=== PATIENT | male | born 1950 | race Caucasian/White ===

== ENCOUNTER 2019-03-24 05:47 | Outpatient (RCR) | payer OTHER, MEDICARE, SELFPAY | END 2019-03-24 23:00 | disposition home or self-care (01) | LOC: ONCRAD 05:47 | PROVIDERS: Family Provider Family Medicine; Visit Provider Radiology Radiation Oncology | DX: Z51.0 Encounter for antineoplastic radiation therapy (principal); C79.51 Secondary malignant neoplasm of bone; C22.0 Liver cell carcinoma; M25.552 Pain in left hip | CPT/HCPCS: 77280; 77336; 77387 ×5; 77412 ×8; 96372; J0897 ==

== ENCOUNTER 2019-04-04 05:45 | Outpatient (RCR) | payer SELFPAY | END 2019-04-12 00:01 | LOC: ONCRAD 05:45 | PROVIDERS: Family Provider Family Medicine; Visit Provider Specialist | DX: Z51.0 Encounter for antineoplastic radiation therapy (principal); C79.51 Secondary malignant neoplasm of bone; C22.0 Liver cell carcinoma; I10 Essential (primary) hypertension; E78.5 Hyperlipidemia, unspecified; E11.42 Type 2 diabetes mellitus with diabetic polyneuropathy; I25.10 Atherosclerotic heart disease of native coronary artery without angina pectoris; G47.33 Obstructive sleep apnea (adult) (pediatric); K21.9 Gastro-esophageal reflux disease without esophagitis; M19.90 Unspecified osteoarthritis, unspecified site; M10.9 Gout, unspecified; E55.9 Vitamin D deficiency, unspecified; F43.10 Post-traumatic stress disorder, unspecified; I25.2 Old myocardial infarction; K22.2 Esophageal obstruction; G89.3 Neoplasm related pain (acute) (chronic); I24.1 Dressler's syndrome; Z79.891 Long term (current) use of opiate analgesic; Z79.899 Other long term (current) drug therapy; Z87.442 Personal history of urinary calculi | CPT/HCPCS: 71045; 77336; 77387 ×2; 77412 ×4; 99214 ==

== ENCOUNTER 2019-05-04 05:42 | Outpatient (RCR) | payer OTHER, MEDICARE, SELFPAY ==
[2019-04-14 15:23] LABS: Basophils # 0.1 10^3/uL (0.0-0.1); Basophils % 0.9 %; Eosinophils # 0.5 10^3/uL (0.0-0.8); Hematocrit 37.9 % (42.0-52.0); Lymphocytes # 0.4 10^3/uL (0.8-4.8); Lymphocytes % 6.8 %; Mean Corpuscular HGB Conc 31.7 g/dL (30.0-36.0); Mean Corpuscular Hemoglobin 29.3 pg (28.0-34.0); Mean Corpuscular Volume 92.4 fL (80-94); Mean Platelet Volume 9.3 fL (7.4-10.4); Monocytes # 0.6 10^3/uL (0.2-0.9); Monocytes % 9.9 %; Neutrophils # 4.3 10^3/uL (1.8-7.7); Neutrophils % 73.2 %; Nucleated Red Blood Cells % 0 %; Platelet Count 291 10^3/cmm (130-400); Red Cell Distribution Width 14.6 % (12.1-15.1); White Blood Count 5.9 10^3/uL (4.0-10.0)
[2019-04-14 22:58] LABS: Alanine Aminotransferase 48 U/L (0-41); Albumin Level 3.8 g/dL (3.5-5.2); Alkaline Phosphatase 122 IU/L (40-130); Anion Gap 18.3 (5-19); Aspartate Amino Transferase 34 U/L (0-40); Blood Urea Nitrogen 12 mg/dL (8-23); Calcium 9.3 mg/Dl (8.8-10.2); Carbon Dioxide 25 mmol/L (22-29); Chloride 99 mmol/L (98-107); Globulin 3.3 g/dL (1.3-4.6); Glomerular Filtration Rate 66.2 mL/min (90-130); Glucose 101 mg/dL (74-106); Potassium 4.3 mmol/L (3.5-5.1); Sodium 138 mmol/L (136-145); Total Bilirubin 0.3 mg/dL (0.15-1.2); Total Protein 7.1 g/dL (6.6-8.7)
--- NOTE | 2019-04-16 11:32 | ONC FU_ITS ---
Dr. Shea Patient Follow-Up Note Patient: Victoriano Resendiz Unit #: [id number]: 1950 Dicatated By: Tyler Shea M.D.Date of Visit:Apr 15, 2019 Onc Med Follow-up/Prog Note Chief Complaint: Hepatocellular carcinoma. History of Present Illness: This is a 68 year-old man with metastatic hepatocellular carcinoma. He has multiple medical illnesses including hypertension, hyperlipidemia, type II diabetes with peripheral neuropathy, coronary artery disease, obstructive sleep apnea, GERD/peptic ulcer disease, degenerative arthritis/degenerative disease of the spine, nephrolithiasis, gout, vitamin D deficiency, and posttraumatic stress disorder. In August 2017 he was admitted to the hospital with non-ST elevation myocardial infarction. At the time he underwent emergent coronary angioplasty for obstructive disease in the mid LAD and first diagonal branch, both of which were noted to contain thrombus. He did not require stent placement. 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 His CT angiogram at that time showed a moderate-sized pericardial effusion, but with no evidence for aortic aneurysm or dissection. Also noted on that study was fatty infiltration of the liver and a 3.2 cm mass in the right lobe of the liver, felt to be indeterminate. Further evaluation with CT abdomen/pelvis on 10/12/2017 showed a 3.7 x 3.8 cm mass involving the right lobe of the liver. It was felt to appear more consistent with a hemangioma then other etiologies. A 3 month interval follow-up was recommended. He had then presented in the fall with left arm pain. It improved with physical therapy. He had then developed worsening pain in his right shoulder and arm. X-rays of the right shoulder showed moderate degenerative changes. MRI showed a mass lesion at the distal aspect of the coracoid process with bony destruction and a soft tissue component which was noted to protrude anteriorly. The appearance was suspicious for malignancy. He had orthopedic surgery consultation with Dr. Hemanth Santos on 04/21/2018. Subsequent needle biopsy of the right shoulder soft tissue mass on 05/12/2018 showed metastatic carcinoma consistent with an hepatocellular primary. The tumor cells were noted to be strongly reactive for a HEP-PAR-1 and negative for CK7, CK20, PAX8, RCC, and thyroglobulin. His further staging with CT scans of the abdomen/pelvis on 05/12/2018 showed a large ill defined arterially enhancing mass within the right hepatic lobe measuring up to 8 cm. The primary diagnostic consideration was hepatocellular carcinoma. A solitary metastatic lesion was felt to be less likely. A 1.5 cm enhancing lesion within the inferior aspect of the spleen was felt to possibly represent splenic hematoma or hemangioma, but with metastatic lesion not excluded. The prostate was noted to be heterogeneously enlarged. CT of the chest on 05/13/2018 showed borderline enlarged right paratracheal, left paratracheal, and subcarinal lymph nodes, the largest in the subcarinal region measuring 15 mm. There were no suspicious pulmonary nodules and there was no pleural or pericardial effusion noted. A destructive expansile lytic lesion was noted to involve the right coracoid process with associated soft tissue mass. There were degenerative changes of the lower cervical spine. I had seen him initially on 06/15/2018. Given the extent of involvement in the right shoulder area, I did have him see Dr. Rapp for palliative radiation. I also reviewed options for systemic therapy, and per NCCN guidelines I had recommended an initial course of therapy with sorafenib. He began radiation to the right shoulder on 06/23/2018. He completed his course of treatment on 06/29/2018, total dose 4000 cGy. He had a very good clinical response. He began treatment with sorafenib 400 mg twice a day on 07/14/2018. He was then given additional radiation to the left scapula and to the pelvis. Treatment was completed to the left scapula on 08/18/2018 and to the pelvis on 09/01/2018, both sites to 2400 cGy. I had seen him for a followup visit on 09/01/2018. At that time he had developed headache on the right side. Initially he continued the sorafenib, but it was stopped as of 09/12/2018. An MRI of the head on 09/15/2018 showed a thin right parietal subacute subdural hematoma overlying the right parietal convexity. It extended over the right occipital and temporal lobes. It measured 5 mm in maximum dimension. There was minimal mass effect on the underlying brain parenchyma. There was no evidence of metastatic disease. During his further follow-up, he continued conservative management for the subdural hematoma, and his symptoms gradually improved. Repeat CT abdomen/pelvis on 09/27/2018 showed increased size variable decreased enhancement/attenuation of the right hepatic lobe mass. There was evidence of progressive lytic metastatic disease involving the sacrum. He was then approved for second line systemic therapy with nivolumab. He began cycle 1 on 10/12/2018. He was able to tolerate the nivolumab without any significant toxicity. He then continued treatment at 2-week intervals. As of 01/11/2019 he received his 6th cycle. His restaging CT scans on 01/14/2019 showed development of an expansile lesion of the right second rib felt to probably represent a metastatic lesion. There was no change in the treated lesion in the right lobe of the liver. There was also no change in the size of the probable right sacral metastasis. Further evaluation with PET/CT on 01/22/2018 showed a region of probable necrosis in the posterior right hepatic lobe, but with no evidence for active hepatic malignancy. There was evidence for multifocal osseous metastatic disease, including a right second rib lesion measuring 3.9 x 3.4 cm with SUV 4.0. There were additional FDG positive bone lesions in the right scapula, T3 vertebral body, left transverse process of T6, sacrum, proximal right femur, right 10th rib, and left scapula. With those findings, he was referred to Dr. Rapp, and he has been undergoing additional phase of radiation to the thoracic spine. On 03/26/2019 he was admitted to the hospital with complaints of severe pain in the throat/chest and difficulty swallowing. The symptoms were severe enough that he was having vomiting/regurgitation. Radiation esophagitis was suspected, but his Gastrografin upper GI study showed evidence of esophageal stenosis. He then had ENT consultation and he was confirmed on subsequent esophagoscopy to have a benign-appearing stricture, which was able to be dilated. There was no evidence of radiation or Kimberly esophagitis. His symptoms improved, and he was then able to continue radiation. He completed treatment to the thoracic spine on 04/04/2019, total dose 3250 cGy. He is seen for a follow-up visit. He has been feeling better generally since completing the radiation. He still has limited activity. ECOG score is 2. His appetite is a little better. He still has a little trouble with swallowing, but not nearly to the extent that he was prior to the dilatation procedure. He has not had fever. He occasionally has sweating. He says his breathing is okay. He has a little bit of cough, productive of creamy white sputum. He has occasional sharp pain to the left side of the sub-sternal area. It does not last long. He has just occasional nausea. Bowel function has been okay. He has some hesitancy with urination. He says his pain is always there, but it is being managed adequately with the oxycodone. He has having to take it on a pretty regular basis. He has occasional headache. He had one recent episode with some lightheadedness and sweating. He continues to have numbness in his left arm and hand, and he is losing function of his left hand. He has a little numbness now in the right hand as well. Medications: Atorvastatin Calcium 1 Tablet (of 20 mg) Oral daily, Cod Liver Oil 1 Tablet (of 1000 mg) Capsule Oral daily, Cyclobenzaprine HCl 1 Tablet (of 10 mg) Oral t.i.d. PRN, Fluticasone Propionate HFA 1 (220 mcg/act) Aerosol Inhalation b.i.d., Ketorolac Tromethamine 1 drop(s) (of 0.5 %) Solution Ophthalmic four times a day, Metoprolol Tartrate 1 Tablet (of 25 mg) Oral b.i.d., Multivitamin Adult 1 Tablet Oral daily, Nitroglycerin 1 (0.4 mg) Tablet, sublingual Sublingual PRN, Ondansetron HCl 1 Tablet (of 4 mg) Oral four times a day PRN, oxyCODONE HCl 1 Tablet (of 10 mg) Oral four times a day PRN, Pantoprazole Sodium 1 Tablet (of 40 mg) Tablet, enteric coated Oral daily PRN, prednisoLONE Acetate 1 drop(s) (of 1 %) Suspension Ophthalmic b.i.d., Vitamin D3 1 Tablet (of 1000 Units) Oral daily Allergies: No Known Allergies. Review of Systems: Constitutional - His energy varies by day. He is up and around at home. His appetite is picking up, but his weight is down. No fever or chills. He has hot flashes and sweating, both during the day and at night. ECOG score is 2, ENMT - He has sinus drainage. No mouth sores. No sore throat or difficulty swallowing, Hematologic/Lymphatic - No abnormal bruising or bleeding, Respiratory - No shortness of breath. He has a productive cough. No pleuritic pain or hemoptysis, Cardiovascular - He has occasional sharp pains in the center of his chest. No palpitations, Gastrointestinal - He has occasional nausea. No vomiting. No heartburn or acid reflux. No diarrhea or constipation. No blood in the stool or black stools, Genitourinary (M) - No dysuria or hematuria. No urinary frequency. No urgency or incontinence. He has some hesitancy, Musculoskeletal - No joint or bone pain, Integumentary - No skin complications, Neurologic - He has occasional headaches. He has frequent dizzy spells. He breaks out in a sweat and feels light-headed. He has numbness in his left arm and both hands, Psychiatric - He gets cranky and he has some depression. No insomnia. Vital Signs: Performed on Apr 15, 2019 08:50 Height - 69.00 in Weight - 148.6 lbs (LOW) BSA - 1.82 sq.m BMI - 21.94 Temperature - 97.6 F (LOW) Pulse - 92 /min Respiration - 16 /min BP - 135/66 mm(hg) O2 Sat - 98 % Pain - 5 Fatigue - 8 Physical Examination: Constitutional - He looks a little better generally, Eyes - Sclerae nonicteric. Conjunctivae clear, ENMT - No lesions noted in the oral cavity, Hematologic/Lymphatic - No cervical, clavicular, or axillary adenopathy, Respiratory - Lungs are clear with some decrease in air movement bilaterally, Cardiovascular - Heart rhythm is regular. There is no murmur, gallop, or rub noted, Abdomen - Soft. Liver is not enlarged. Spleen is not palpable. There is no abdominal mass or ascites noted and there is no inguinal adenopathy, Extremities - No edema. There is some redness in the area of the right first metatarsal/phalangeal joint, and it is warm to touch, Neurologic - No focal neurologic deficits noted. Lab/Imaging: Test performed on Apr 14, 2019 07:35 Glucose 101 mg/dL BUN 12 mg/dL Creatinine 1.1 mg/dL Cr Clearance (Est) 59.58 mL/min Sodium 138 mmol/L Potassium 4.3 mmol/L Chloride 99 mmol/L CO2 25 mmol/L Calcium 9.3 mg/dL Protein, Total 7.1 g/dL Albumin 3.8 g/dL Globulin 3.3 g/dL Bilirubin, Total 0.3 mg/dL Alkaline Phosphatase 122 IU/L AST (SGOT) 34 IU/L ALT (SGPT) 48 IU/L WBC 5.9 10^9/L RBC 4.10 10^12/L HGB 12.0 g/dL HCT 37.9 % MCV 92.4 fl MCH 29.3 pg MCHC 31.7 g/dL RDW 14.6 % Platelet Count 291 10^9/L MPV 9.3 fL Neutrophils (Gran) 4.3 10^9/L Lymphocytes 0.4 10^9/L Monocytes 0.6 10^9/L Eosinophils 0.5 10^9/L Basophils 0.1 10^9/L Manual Lymphocytes 6.8 % Manual Monocytes 9.9 % Manual Eosinophils 9.0 % Manual Basophils 0.9 % NRBCs 0.0 /100 WBC Test performed on Jan 11, 2019 11:25 TSH 2.13 uIU/mL Anion Gap 20.4 eGFR 95.6 mL/min Neutrophil % 74.1 % Lymphocyte % 14.8 % Monocyte % 5.8 % Eosinophil % 4.1 % Basophils % 1.2 % AFP 23.8 ng/mL Test performed on Dec 07, 2018 11:15 T4, Free 1.06 ng/dL Impression: 1. Patient with hepatocellular carcinoma. By clinical evaluation his disease is stage IVB (T1, NX, M1) with biopsy proven metastatic involvement in the right shoulder. 2. There is also a possible metastatic lesion in the spleen by CT scan. His other medical illnesses include: 3. Hypertension. 4. Hyperlipidemia. 5. Type II diabetes with peripheral neuropathy. 6. Coronary artery disease with history of non-ST elevation myocardial infarction in August 2017. 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 7. GERD/peptic ulcer disease. 8. Obstructive sleep apnea. 9. Degenerative arthritis/degenerative disease of the spine. 10. Gout. 11. Nephrolithiasis. 12. Vitamin D deficiency. 13. Posttraumatic stress disorder. Due to symptomatic involvement in the right shoulder, he initially was treated with palliative radiation to that area. He completed treatment on 06/29/2018, total dose 4000 cGy. He had a very good clinical response. He then began systemic therapy with sorafenib 400 mg twice a day on 07/14/2018. He has now completed additional palliative radiation to the left scapula and to the pelvis, both sites to 2400 cGy. Initially he appeared to be tolerating the sorafenib with acceptable toxicity. However, as of his follow-up visit on 09/01/2018 he had developed headache on the right side. This continued to worsen, and the sorafenib was then stopped as of 09/12/2018. MRA of the head on 09/15/2018 showed evidence of a subacute right subdural hematoma. He was taken off Plavix. It was otherwise been managed conservatively, and it subsequently improved. During follow-up he did show some decline in performance status. His repeat CT scans on 09/27/2018 showed variable appearance to the liver, but there likely was some disease progression in both the liver and bone. On 10/12/2018 he began second line therapy with nivolumab 240 mg by IV infusion every 2 weeks. As of 01/11/2019 he had completed 6 cycles of treatment. His restaging CT and subsequent PET/CT appeared to show evidence of progression of the bony metastatic disease, with the most significant site being in the anterior right second rib. He had initially continued his immunotherapy, but he then had worsening back pain and development of neurologic symptoms in the left arm, and he was confirmed by MRI to have further disease progression in the thoracic spine. The immunotherapy was again put on hold, and he has had underwent palliative radiation to the thoracic spine. He completed treatment on 04/04/2019, total dose 3250 cGy. During that time he required hospital admission for severe dysphasia, but that was determined to be due to a benign esophageal stricture, and his symptoms are improved following an esophageal dilatation procedure. At this point he continues to have limited activity tolerance. His pain is being managed adequately with immediate release oxycodone, but he has having to take it on a fairly regular basis. He has persistent neurologic symptoms in the left arm. He still has some difficulty swallowing, but not nearly to the extent that he was prior to the dilatation procedure. Plan: As he has had significant disease progression during treatment with nivolumab, the immunotherapy will be discontinued. His options for further treatment are very limited. There would be the possibility of a trial of second line TKI therapy, but the likelihood of benefit would be low, and I would be very concerned about the risk of toxicities, including the risk of new or recurrent subdural hematoma. In this situation, it may be best to just continue with symptomatic/supportive care, in which case hospice referral would be appropriate. He is scheduled to see Dr. Tian for a follow-up visit next week, and I will see if I can get a Gastrografin UGI repeated prior to that visit. I also want to schedule him for MRI of the cervical and thoracic spine to screen for other areas of potential metastatic involvement. I also will check a sputum culture. He will be given a refill for prednisone, as I suspect he has acute gout again. Signed By: Tyler Shea M.D. <<Signature on File>>
--- NOTE | 2019-04-21 12:23 | MR_ITS ---
WS: [id number] MRI THORACIC SPINE WITH CONTRAST TECHNIQUE: Sagittal T1, T2 and STIR imaging. Axial T2 imaging. Post gadolinium imaging was obtained. CLINICAL INFORMATION: HEPATOCELLULAR CA W/BONE METS;WEAKNESS/NUMBNESS LT ARM COMPARISON: None. FINDINGS: Multiple metastatic lesions throughout the thoracic spine involving the vertebral bodies and posterio r elements. Largest lesions at T4, T5, T6, T7, T8, T11 and T12. Prominent involvement of posterior el ements at left T6 extending through the left T6 pedicle. Large left paravertebral soft tissue mass in volving the left paravertebral musculature and posterior elements at left T5 and T6. This abuts the l dhara, pedicle and transverse process contiguous with the left T6 pedicle with epidural involvement. Paravertebral mass measures 5.4 x 2.7 x 2.6 cm. Additional left paravertebral mass at T1 and T2 descr ibed on the cervical spine MRI. Multiple enhancing metastatic lesions are visualized in the posterior elements and proximal ribs. Thi s is most prominent at right T4, right T8, and left T9. Prominent involvement of the spinous process at T11. Epidural disease with circumferential moderate central canal stenosis at T1 and T2 as describ ed on the cervical spine MRI. Less prominent left eccentric epidural involvement at left T6. This ext ends into the left neural foramen. Cord signal remains normal. Normal caliber thoracic aorta. Partial ly visualized large metastatic lesions along the right anterior second rib. 1. Extensive bony metastatic disease throughout the thoracic spine involving the posterior elements as described above. 2. Large left paravertebral lesion at the T5 and T6 level contiguous with the left T6 pedicle. Soft tissue mass measures 5.4 x 2.7 x 2.6 cm. 3. Small amount of left eccentric epidural disease at T6 without significant central canal stenosis. 4. Epidural disease at T1 and T2 as described on the cervical spine MRI with moderate central canal stenosis. Cord signal remains normal. 5. Partially visualized large right second rib lesion anteriorly. 6. Large left posterior paravertebral lesion at T1 and T2 as described on the cervical spine MRI. MR/MR thoracic spine wo/w [id number] IMPRESSION:
--- NOTE | 2019-04-21 12:23 | MR_ITS ---
WS: [id number] MRI CERVICAL SPINE NONCONTRAST TECHNIQUE: Sagittal T1, T2 and STIR imaging. Axial T2, gradient, and fiesta imaging. CLINICAL INFORMATION: HEPATOCELLULAR CA W/BONE METS,WEAKNESS/NUMBNESS LT ARM COMPARISON: February 10, 2019 FINDINGS: Straightening of the normal cervical lordosis. Images are moderately degraded by motion artifact. Aga in seen are prominent metastatic lesions involving the T1 and T2 vertebral bodies extending into the right posterior elements at T2. This is similar in appearance to the prior examination. Diffuse enhan cing epidural extension of disease at the T1-2 level extending inferiorly with moderate central canal stenosis. Cord signal remains normal. Epidural extension of disease was present previously but appea rs progressed today. At the left T1-2 level there is a large enhancing T2 hyperintense paravertebral mass consistent with metastatic disease measuring approximately 3.8 x 2.3 x 2.4 CM. This is partially visualized previousl y but appears increased in size. This extends to abut the posterior left lamina at T1 and T2 in the p aravertebral musculature. C2-C3: Normal. C3-C4: Mild disc osteophyte complex with endplate ridging. Mild central canal stenosis. Small central protrusion. Moderate left facet arthropathy. Mild bilateral bony foraminal narrowing. C4-C5: Disc osteophyte complex with mild central canal stenosis. Moderate bilateral bony foraminal na rrowing. Moderate facet arthropathy. C5-C6: Disc osteophyte complex with endplate ridging. Moderate central canal stenosis. Moderate to se derrell left and moderate right bony foraminal narrowing. C6-C7: Mild disc bulging with osteophytic ridging. Mild right greater than left bony foraminal narrow ing. Spinal canal is patent. C7-T1: Mild disc bulging. Small amount of epidural disease with mild central canal stenosis. Mild hi ateral foraminal narrowing with epidural extension of disease Visualized brain stem structures: Normal. Prevertebral soft tissues: Normal. 1. Again seen are bony metastatic lesions at T1 and T2 vertebral bodies extending into the posterior elements on the right at T2. These are similar in appearance to the prior examination. 2. Progressed epidural extension of disease at T1 and T2 with moderate circumferential central canal stenosis. Cord signal remains normal. This was present previously but appears slightly progressed to day. 3. Large left paravertebral soft tissue mass also progressed in size measuring 3.8 x 2.3 x 2.4 CM ab utting the left T1 and T2 posterior elements at the lamina. 4. Small disc osteophyte complexes result in mild to moderate central canal stenosis C3-C4, C4-C5, a nd C5-C6 unchanged. MR/MR cervical spine wo/w [id number] IMPRESSION:
--- NOTE | 2019-04-25 10:53 | FL_ITS ---
WS: [id number] UPPER GI TECHNICAL: Gastrografin upper GI FLUOROSCOPY TIME: 3.8 minutes CLINICAL INFORMATION: HEPATOCELLULAR CA/ESOPHAGEAL STRICTURE/DIFFICULTY SWALLOWING COMPARISON: FINDINGS: Swallowing: Normal. Esophagus: Previously described stricture in the upper cervical esophagus has improved today. No evid ence of high-grade stricture or obstructing mass. Moderate esophageal dysmotility with delayed emptyi ng. Gastroesophageal reflux: Small amount present Stomach: Normal appearing stomach. Gastric retention with delayed emptying. IMPRESSION: 1. Previously described stricture in the upper cervical esophagus has improved today. No evidence of high-grade stricture or obstructing mass. 2. Overall moderate esophageal dysmotility with delayed emptying. 3. No significant hiatal hernia. 4. Small amount of reflux visualized on the supine imaging. 5. Normal-appearing stomach, although with gastric retention and delayed emptying despite delayed im aging. Consider gastroparesis.
[2019-04-25] MEDS: diatrizoate meglumine 120 mL Sol PO ×2 (11:38→11:41)
--- NOTE | 2019-05-05 | CT_ITS ---
Radation Therapy Planning CT images; total exam DLP: 798.17 mGy-cm MTDD
== END 2019-05-13 23:59 | disposition home or self-care (01) ==
LOC: ONCMED 05:42
PROVIDERS: Family Provider Family Medicine; PCP Family Medicine; Visit Provider Internal Medicine Medical Oncology
DX: C79.51 Secondary malignant neoplasm of bone (principal); C22.0 Liver cell carcinoma; G89.3 Neoplasm related pain (acute) (chronic); E78.5 Hyperlipidemia, unspecified; I10 Essential (primary) hypertension; E11.42 Type 2 diabetes mellitus with diabetic polyneuropathy; I25.10 Atherosclerotic heart disease of native coronary artery without angina pectoris; G47.33 Obstructive sleep apnea (adult) (pediatric); K21.9 Gastro-esophageal reflux disease without esophagitis; M19.90 Unspecified osteoarthritis, unspecified site; M10.9 Gout, unspecified; E55.9 Vitamin D deficiency, unspecified; F43.10 Post-traumatic stress disorder, unspecified; I25.2 Old myocardial infarction; N40.0 Benign prostatic hyperplasia without lower urinary tract symptoms; F32.9 Major depressive disorder, single episode, unspecified; R47.02 Dysphasia; Z79.891 Long term (current) use of opiate analgesic; Z79.899 Other long term (current) drug therapy; Z87.11 Personal history of peptic ulcer disease; Z98.61 Coronary angioplasty status; Z87.442 Personal history of urinary calculi; Z92.25 Personal history of immunosuppression therapy; Z48.89 Encounter for other specified surgical aftercare
CPT/HCPCS: 72156; 72157; 74240; 77290; 77334; 77470; 80053; 85025; 87070; 99214; 99215; A9579; Q9967

== ENCOUNTER 2019-05-15 14:01 | Inpatient (IN) | payer OTHER, MEDICARE, SELFPAY ==
[2019-05-15 14:01] VITALS: PULSE 92; RESP 17; O2SAT 100
--- NOTE | 2019-05-15 14:05 | ED_ITS ---
Entered by Dagmar Coy, acting as scribe for HPI - General Adult General: Chief complaint: General Medical Stated complaint: N/V/D; LIVER CA Time Seen by Provider: 05/15/19 14:03 Source: patient Mode of arrival: ambulatory Limitations: no limitations History of Present Illness: HPI narrative: difficulty swallowing, recent stretch in his esophagus. pt is a cancer pt. MD complaint: n/v/d Onset (ago): hour(s) (today) Radiation: abdomen Severity: moderate Pain Consistency: constant Relieving factors: none Exacerbating factors: movement Associated symptoms: Reports nausea, vomiting and other (diarrhea ); Deny chest pain, dyspnea, headache(s) or rash Treatments prior to arrival: none Review of Systems Const: Denies: fever, chills, body aches or change in appetite Eyes: Denies: photophobia ENMT: Denies: dental pain Card: Denies: chest pain Resp: Denies: shortness of breath GI: Reports: nausea and vomiting : Denies: painful urination Musc: Denies: neck pain or back pain Skin/Breast: Denies: rash Neuro: Denies: headache Psych: Denies: depression Markell/Lymph: Denies: easy bruising All/Imm: Denies: acute wheezing PFSH ED PFSH: Statuses (acute, chronic, etc) shown below reflect problem list status a s previously entered and may not be historically accurate Social History Smoking and tobacco status: former smoker Alcohol intake: former Physical Exam Const: COMMON NORMALS: no apparent distress, oriented x3 and healthy appearing HENMT: COMMON NORMALS: normocephalic and head/scalp atraumatic HEAD & SCALP: normocephalic and atraumatic Eye: COMMON NORMALS: PERRL and EOMs intact bilaterally PUPIL: Yes PERRL Neck/C-Spine: COMMON NORMALS: full ROM and supple Chest: COMMONS NORMALS: inspection of chest normal and palpation of chest normal Resp: COMMON NORMALS: normal respiratory effort, no retractions and clear to auscultation bilaterally AUSCULTATION: clear to auscultation bilaterally Cardio: COMMON NORMALS: regular rate, regular rhythm and no murmurs RATE: regular rate RHYTHM: regular rhythm GI: COMMON NORMALS: normal to inspection, nondistended, normoactive bowel sounds, soft to palpation, non-tender and no masses PALPATION: Yes soft Extremity: COMMON NORMALS: normal to inspection and full ROM Neuro: COMMON NORMALS: oriented x3, moves all extremities and no focal motor deficits Psych: COMMON NORMALS: mental status grossly normal, thought process normal and cooperative THOUGHT PROCESS: normal thought process Skin: COMMON NORMALS: no rashes or lesions noted and no wounds GENERAL SKIN EXAM: no rashes or lesions noted Course Vital Signs: Vital signs: Vital Signs Pulse Rate 92 05/15/19 14:01 Respiratory Rate 18 05/15/19 14:34 Pulse Oximetry 99 05/15/19 14:34 MDM - General Adult MDM Narrative: Medical decision making narrative: Patient presents here with dehydration and acute kidney injury. Patient abdominal exam here is benign and his white count is normal. I spoke to hospitalist and patient given IV fluids and will admit for further hydration. Patient's potassium level here is normal. Lab Data: Labs: Lab Results 05/15/19 05/15/19 Range/Units 14:43 14:43 WBC 5.9 (4.0-10.0) 10^3/ uL RBC 3.65 L (4.1-5.3) 10^6/u L Hgb 10.6 L (11.7-16.6) g/dL Hct 33.3 L (42.0-52.0) % MCV 91.2 (80-94) fL MCH 29.0 (28.0-34.0) pg MCHC 31.8 (30.0-36.0) g/dL RDW 15.1 (12.1-15.1) % Plt Count 344 (130-400) 10^3/c mm MPV 8.7 (7.4-10.4) fL Neut % (Auto) 86.1 % Lymph % (Auto) 4.4 % [place] % (Auto) 6.1 % Eos % (Auto) 1.9 % Baso % (Auto) 1.2 % Neut # (Auto) 5.1 (1.8-7.7) 10^3/u L Lymph # (Auto) 0.3 L (0.8-4.8) 10^3/u L [place] # (Auto) 0.4 (0.2-0.9) 10^3/u L Eos # (Auto) 0.1 (0.0-0.8) 10^3/u L Baso # (Auto) 0.1 (0.0-0.1) 10^3/u L Nucleated RBC % (a uto) 0 % Nucleated RBCs # 0.0 /100WBC Sodium 140 (136-145) mmol/L Potassium 4.5 (3.5-5.1) mmol/L Chloride 102 (98-107) mmol/L Carbon Dioxide 19 L (22-29) mmol/L Anion Gap 23.5 H (5-19) BUN 44 H (8-23) mg/dL Creatinine 5.3 H (0.7-1.2) mg/dL Glucose 131 H (74-106) mg/dL Calcium 6.9 L (8.5-10.5) mg/dL Total Bilirubin 0.5 (0.15-1.2) mg/dL AST 22 (0-40) U/L ALT 23 (0-41) U/L Alkaline Phosphata se 253 H (40-130) IU/L Total Protein 7.1 (6.6-8.7) g/dL Albumin 3.4 L (3.5-5.2) g/dL Globulin 3.7 (1.3-4.6) g/dL Lipase 137 H (13-60) U/L Discharge Plan Discharge Patient Disposition: Admitted As Inpatient Clinical Impression: Acute dehydration Acute kidney failure Qualifiers: Acute renal failure type: unspecified Qualified Code(s): N17.9 - Acute kidney failure, unspecified Condition: Stable Referrals: Rich Doe [Primary Care Provider] - Coding Level of Care Code ED Hostess Host for g Fwd Exam Problem Focused The documentation recorded by the Zbigniew matos Bridget Annette, accurately reflects the service I personally performed and the decisions made by , Kathy Hernández MD May 15, 2019 14:01
[2019-05-15] MEDS: sodium chloride 0.9% 1,000 ML 999 ML IV ×2 (14:31→15:46)
[2019-05-15] MEDS: ondansetron 2 mg/ML SDV 2 mL 4 MG IVP (14:32)
[2019-05-15 14:34] VITALS: RESP 18; O2SAT 99
[2019-05-15] MEDS: morphine 4 mg/mL SDV 1 mL IVP (14:34)
[2019-05-15 14:52] LABS: Basophils # 0.1 10^3/uL (0.0-0.1); Basophils % 1.2 %; Eosinophils # 0.1 10^3/uL (0.0-0.8); Eosinophils % 1.9 %; Hematocrit 33.3 % (42.0-52.0); Hemoglobin 10.6 g/dL (11.7-16.6); Lymphocytes # 0.3 10^3/uL (0.8-4.8); Lymphocytes % 4.4 %; Mean Corpuscular HGB Conc 31.8 g/dL (30.0-36.0); Mean Corpuscular Volume 91.2 fL (80-94); Mean Platelet Volume 8.7 fL (7.4-10.4); Monocytes # 0.4 10^3/uL (0.2-0.9); Monocytes % 6.1 %; Neutrophils # 5.1 10^3/uL (1.8-7.7); Neutrophils % 86.1 %; Nucleated Red Blood Cells % 0 %; Platelet Count 344 10^3/cmm (130-400); Red Blood Count 3.65 10^6/uL (4.1-5.3); Red Cell Distribution Width 15.1 % (12.1-15.1); White Blood Count 5.9 10^3/uL (4.0-10.0)
[2019-05-15 15:11] LABS: Alanine Aminotransferase 23 U/L (0-41); Albumin Level 3.4 g/dL (3.5-5.2); Alkaline Phosphatase 253 IU/L (40-130); Anion Gap 23.5 (5-19); Aspartate Amino Transferase 22 U/L (0-40); Blood Urea Nitrogen 44 mg/dL (8-23); Calcium 6.9 mg/dL (8.5-10.5); Carbon Dioxide 19 mmol/L (22-29); Chloride 102 mmol/L (98-107); Globulin 3.7 g/dL (1.3-4.6); Glucose 131 mg/dL (74-106); Lipase 137 U/L (13-60); Potassium 4.5 mmol/L (3.5-5.1); Sodium 140 mmol/L (136-145); Total Bilirubin 0.5 mg/dL (0.15-1.2); Total Protein 7.1 g/dL (6.6-8.7)
[2019-05-15] MEDS: metoclopramide 5 mg/mL SDV 2 mL IVP (15:46)
[2019-05-15] MEDS: diphenhydrAMINE 50 mg/mL SDV 1mL 25 MG IVP (15:47)
--- NOTE | 2019-05-15 17:23 | PM.HP ---
Providers/Chief Complaint Admitting Physician: Garfield Fletcher MD Primary Care Provider: Rich Doe Chief Complaint: N/V/D; LIVER CA History of Present Illness Victoriano Resendiz is a 69 year old male with a past medical history of stage IV metastatic hepatocellular carcinoma, status post radiation therapy, status post chemotherapy, history of CAD status post angioplasty to LAD and first diagonal branch, PEARL on CPAP, hypertension, hyperlipidemia, type 2 diabetes mellitus, peripheral neuropathy, GERD, peptic ulcer disease, recent history of radiation-induced esophageal stricture eosinophilic esophagitis who presents to the emergency room due to complaints of dysphasia, nausea, poor oral intake, weakness, fatigue, lightheadedness. Patient states that he continues to have dysphagia, he recently was diagnosed with eosinophilic esophagitis, had a radiation-induced esophageal stricture status post dilation by Dr. Tian, has followed up with Dr. Tian as outpatient, had a repeat barium swallow a few weeks ago it showed resolving esophageal stricture, but states that he continues to have dysphagia, dysphagia to solids liquids, nausea, has trouble keeping down solids and liquids, states that at times he will vomit up brown to yellow globs, he has felt weak fatigued and tired, has felt unsteady on his feet, no falls, no injuries, states that he has some dysuria, with more pronounced left flank pain, but has chronic back pain. Patient recently.saw Dr. Shea, was put on a fentanyl patch for pain and lorazepam for nausea. Patient also reports that he has had roughly a 20 pound weight loss in the last few months. States that he is always constipated, secondary to opiate medications. Review of Systems Const: Denies: fever, chills, fatigue or malaise Eyes: Denies: change in vision or blurry vision Card: Denies: chest pain or palpitations Resp: Denies: shortness of breath, productive cough, non-productive cough or wheezing GI: Reports: nausea, vomiting, difficulty swallowing and feeling full early; Denies: abdominal pain, vomiting blood, diarrhea, constipation, blood in stool or black tarry stool : Denies: flank pain, difficulty urinating, painful urination or urinary frequency Musc: Denies: neck pain or back pain Skin/Breast: Denies: rash Neuro: Denies: headache, dizziness or vertigo Psych: Denies: anxiety or depression Endo: Denies: excessive urination or excessive thirst Medications/Allergies Home Medications Medication Instructions Recorded Confirmed Last Taken Type Xgeva See Rx Instructions .ROUTE .COMPLEX 05/15/19 05/15/19 Unknown History fentanyl 1 patch TRANSDERMAL Q72H 05/15/19 05/15/19 Unknown History multivitamin [Multiple Vitamins] 1 tab PO DAILY 05/15/19 05/15/19 05/14/19 History Allergies Allergy/AdvReac Type Severity Reaction Status Date / Time No Known Allergies Allergy Verified 04/21/19 15:09 PFSH Acute PFSH: Statuses (acute, chronic, etc) shown below reflect problem list status as previously entered and may not be historically accurate Medical History (Updated 05/15/19 @ 17:46 by Garfield Fletcher MD) ASHD (arteriosclerotic heart disease) (Acute) No ASA or Plavix due to stomach ulcers. Pt had subdural hematoma Bruxism (Acute) Monica syndrome (Acute) H. 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 (Acute) Hyperlipidemia (Acute) Taken off the meds by Dr Shea Hypertension (Acute) taken off the BP meds by Dr Shea Low back pain (Acute) Neck pain (Acute) Obstructive sleep apnea (Acute) Pericardial effusion (Acute) Spondylisthesis (Acute) Ulnar neuropathy (Acute) Surgical History History of carpal tunnel surgery (Acute) Social History (Updated 05/15/19 @ 17:29 by Garfield Fletcher MD) Smoking and tobacco status: former smoker Alcohol intake: former Substance/Drug Use: never Vitals/I&O/Wt Last Vital Signs Pulse 92 05/15/19 14:01 Resp 18 05/15/19 14:34 Pulse Ox 99 05/15/19 14:34 Physical Exam Const: COMMON NORMALS: no apparent distress and oriented x3 GENERAL APPEARANCE: cooperative and comfortable HENMT: COMMON NORMALS: normocephalic HEAD & SCALP: normocephalic Eye: COMMON NORMALS: PERRL, EOMs intact bilaterally and no papilledema GENERAL EYE: normal appearance of both eyes PUPIL: Yes PERRL DIRECT OPHTHALMOSCOPY: Yes no papilledema Neck/C-Spine: COMMON NORMALS: full ROM, no lymphadenopathy, no JVD and thyroid normal THYROID: thyroid normal Lymph: LYMPHATIC: no lymphadenopathy noted Resp: COMMON NORMALS: normal respiratory effort, no retractions, no use of accessory muscles and clear to auscultation bilaterally AUSCULTATION: clear to auscultation bilaterally Cardio: COMMON NORMALS: no JVD, regular rate, regular rhythm, S1 normal heart sound, S2 normal heart sound, no gallops, no clicks and no murmurs RATE: regular rate RHYTHM: regular rhythm HEART SOUNDS: S1 normal and S2 normal GI: COMMON NORMALS: normal to inspection, nondistended, normoactive bowel sounds, soft to palpation, non-tender and no hepatosplenomegaly PALPATION: Yes soft and Yes no hepatosplenomegaly : BLADDER/KIDNEY EXAM: Yes CVA tenderness on the left Extremity: COMMON NORMALS: normal to inspection, full ROM and no pedal edema Neuro: COMMON NORMALS: oriented x3, CN's II-XII intact bilaterally, moves all extremities and no focal motor deficits Psych: COMMON NORMALS: mental status grossly normal, thought process normal and cooperative THOUGHT PROCESS: normal thought process Data : 05/15/19 14:43 05/15/19 14:43 A&P Assessment and plan (1) Acute kidney failure: -Likely secondary to severe dehydration and acute pyelonephritis and possible reaction to xgeva? 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: -Status post chemoradiation -He is receiving Xgeva Status: Acute Code(s): C79.51 - Secondary malignant neoplasm of bone; C22.0 - Liver cell carcinoma (4) Obstructive sleep apnea: Status: Acute Code(s): G47.33 - Obstructive sleep apnea (adult) (pediatric) (5) ASHD (arteriosclerotic heart disease): Status: Acute Code(s): I25.10 - Atherosclerotic heart disease of inupiat coronary artery without angina pectoris (6) Hypertension: Status: Acute Qualifiers: Hypertension type: essential hypertension Qualified Code(s): I10 - Essential (primary) hypertension Code(s): I10 - Essential (primary) hypertension (7) Dysphasia: -Has a history of eosinophilic esophagitis with history of radiation-induced esophageal stricture -Most recent barium enema showed resolving esophageal stricture -Patient continues to have dysphasia, trouble keeping down solids and liquids, nausea and vomiting -Patient has features of esophageal dysmotility, possible recurrent esophageal stricture, and has components of gastroparesis Plan: -We will perform a barium swallow tomorrow -We will perform a gastric emptying study tomorrow -Based on studies we will consult Dr. Tian -Possibly Reglan can help the patient symptoms? Will start after gastric emptying study -Continue IV fluids Status: Acute Code(s): R47.02 - Dysphasia (8) Hyperlipidemia: Status: Acute Qualifiers: Hyperlipidemia type: mixed hyperlipidemia Qualified Code(s): E78.2 - Mixed hyperlipidemia Code(s): E78.5 - Hyperlipidemia, unspecified (9) Chronic pain: On fentanyl 50 every 72, due to be changed to 07/01/2019 in the evening On oxycodone 15 mg 4 times daily as needed for breakthrough pain, patient states that he hardly uses this On lorazepam 1 mg q. 6 as needed for nausea Status: Acute Code(s): G89.29 - Other chronic pain (10) Pyelonephritis of left kidney: -Patient has a left CVA tenderness, with dysuria -Follow urine culture -Patient is on Rocephin Status: Acute Code(s): N12 - Tubulo-interstitial nephritis, not specified as acute or chronic (11) Type 2 diabetes mellitus: Diet controlled Status: Acute Code(s): E11.9 - Type 2 diabetes mellitus without complications Attestations Medical Necessity Statement*: Patient requires hospitalization, inpatient for acute renal failure, dysphasia, dehydration, left pyelonephritis Coding Level of Care Code Acute 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
--- NOTE | 2019-05-15 17:47 | CTR_ITS ---
PROCEDURE INFORMATION: Exam: CT Abdomen And Pelvis Without Contrast Exam date and time: 05/15/2019 6:12 PM Age: 69 years old Clinical indication: Abdominal pain; Periumbilical; Additional info: Evaluate fro nephrolithiasis TECHNIQUE: Imaging protocol: Computed tomography of the abdomen and pelvis without contrast. Total DLP: 761.85 mGy-cm Radiation optimization: All CT scans at this facility use at least one of these dose optimization techniques: automated exposure control; mA and/or kV adjustment per patient size (includes targeted exams where dose is matched to clinical indication); or iterative reconstruction. COMPARISON: CT Chest/Abdomen/Pelvis w IV* 01/14/2019 11:19 AM FINDINGS: Liver: Large inhomogenous mass in the right liver lobe has increased slightly in size measuring 13.2 x 9.1 x 9.4 cm. Gallbladder and bile ducts: Normal. No calcified stones. No ductal dilation. Pancreas: Normal. No ductal dilation. Spleen: Calcified granulomas in the spleen. Adrenals: A 1.4 cm nodule has developed in the left adrenal gland. The right adrenal is normal. Kidneys and ureters: Stable prominent bilateral renal pelves without suzi hydronephrosis. No calculus. Stomach and bowel: Diverticulosis of the descending colon. The small bowel and stomach are normal. Appendix: The appendix is normal. Intraperitoneal space: Unremarkable. No free air. No significant fluid collection. Vasculature: Unremarkable. No abdominal aortic aneurysm. Lymph nodes: Unremarkable. No enlarged lymph nodes. Bladder: Unremarkable as visualized. Reproductive: Mildly enlarged prostate. Bones/joints: Mild scoliosis. Chronic bilateral L5 pars fractures with grade 2 subluxation. Degenerative spine. Slightly larger 4.4 cm destructive lesion in the superior left sacrum. Slightly larger 4.0 cm destructive lesion in the anterior right sacrum. Soft tissues: Unremarkable. CT/CT kidney stone 39747 IMPRESSION: 1. Slight size increase in the large treated hepatocellular carcinoma in the right liver lobe. 2. New 1.4 cm metastatic nodule in the left adrenal gland. 3. Slightly larger expansile metastatic lesions in the superior left and anterior right sacrum. Radiation Dose CTDIVOL = (mGy): DLP = 761.85 (mGy-cm)
[2019-05-15 18:21] VITALS: BP 139/75; PULSE 79; RESP 17; O2SAT 98
[2019-05-15] MEDS: sodium chloride 0.9% 1,000 ML 100 ML IV (19:37)
[2019-05-15] MEDS: cefTRIAXone 1,000 MG in sodium chloride 0.9% (plus) 50 ML 100 MG IV (19:39)
[2019-05-15] MEDS: cholecalciferol (vitamin D3) 1,000 unit Tablet 1000 UNIT PO (19:40)
[2019-05-15] MEDS: enoxaparin 40 mg/0.4 mL Syringe SUBCUT (19:40)
[2019-05-15 20:00] VITALS: BP 149/81; PULSE 89; RESP 18; TEMP 37; O2SAT 98
[2019-05-16] VITALS (7 sets, daily range): BP systolic 125–152; BP diastolic 58–79; PULSE 78–103; RESP 18–20; TEMP 36.7–37.1; O2SAT 91–99
[2019-05-16 00:29] LABS: Urine Creatinine 91 mg/dL (39-259); Urine Protein Random 10 mg/dL; Urine Random Sodium 125 mmol/L
[2019-05-16 01:36] LABS: Eosinophil Urine No Eosinophils Seen; Urine Eosinophil Count 0 (0-0)
[2019-05-16 04:32] LABS: Basophils # 0.1 10^3/uL (0.0-0.1); Basophils % 1.4 %; Eosinophils # 0.5 10^3/uL (0.0-0.8); Eosinophils % 8.2 %; Hematocrit 31.7 % (42.0-52.0); Hemoglobin 10.1 g/dL (11.7-16.6); Lymphocytes # 0.4 10^3/uL (0.8-4.8); Lymphocytes % 7.5 %; Mean Corpuscular HGB Conc 31.9 g/dL (30.0-36.0); Mean Corpuscular Hemoglobin 29.4 pg (28.0-34.0); Mean Corpuscular Volume 92.4 fL (80-94); Mean Platelet Volume 8.9 fL (7.4-10.4); Monocytes # 0.7 10^3/uL (0.2-0.9); Monocytes % 11.8 %; Neutrophils # 4.1 10^3/uL (1.8-7.7); Neutrophils % 70.8 %; Nucleated Red Blood Cells % 0 %; Platelet Count 301 10^3/cmm (130-400); Red Blood Count 3.43 10^6/uL (4.1-5.3); Red Cell Distribution Width 15.2 % (12.1-15.1); White Blood Count 5.8 10^3/uL (4.0-10.0)
[2019-05-16 04:48] LABS: Alanine Aminotransferase 19 U/L (0-41); Albumin Level 2.9 g/dL (3.5-5.2); Alkaline Phosphatase 212 IU/L (40-130); Anion Gap 17.3 (5-19); Aspartate Amino Transferase 19 U/L (0-40); Blood Urea Nitrogen 34 mg/dL (8-23); Calcium 6.2 mg/dL (8.5-10.5); Carbon Dioxide 20 mmol/L (22-29); Chloride 106 mmol/L (98-107); Globulin 3.4 g/dL (1.3-4.6); Glucose 93 mg/dL (74-106); Magnesium 1.7 mg/dL (1.7-2.3); Phosphorus 4.3 mg/dL (2.5-4.5); Potassium 4.3 mmol/L (3.5-5.1); Sodium 139 mmol/L (136-145); Total Bilirubin 0.4 mg/dL (0.15-1.2); Total Protein 6.3 g/dL (6.6-8.7)
[2019-05-16 04:55] LABS: Procalcitonin 0.18 ng/mL (0-0.5)
[2019-05-16] MEDS: ondansetron 2 mg/ML SDV 2 mL 8 MG IVP ×3 (05:52→21:41)
[2019-05-16] MEDS: sodium chloride 0.9% 1,000 ML 100 ML IV ×2 (05:54→14:13)
--- NOTE | 2019-05-16 07:00 | FL_ITS ---
WS: [id number] MODIFIED BARIUM SWALLOW TECHNIQUE: Modified barium swallow with speech therapy using multiple consistencies. FLUOROSCOPY TIME: .9 minutes. CLINICAL INFORMATION: Oral dysphagia COMPARISON: April 25, 2019 FINDINGS: Limited examination. Patient could not complete examination. No evidence of suzi aspiration. Delayed oropharyngeal phase. Patient could not perform barium tablet portion of the exam. FL/FL barium swallow modifd [id number] IMPRESSION: 1. Limited examination. No evidence of suzi aspiration. 2. See speech therapy note for further detail.
--- NOTE | 2019-05-16 08:36 | PM.PN ---
Subjective Subjective: Interval history: Chart reviewed, AM labs noted, MBS pending. Mild improvement in Cr noted. Had 200 mL urine output overnight. Patient seen and examined, significant other at bedside. Had an extensive discussion with both of them. Patient unable to complete modified barium swallow earlier today, reviewed speech therapy note and discussed findings with ST. for now patient would like to try peripheral nutrition. We did discuss possibility of feeding tube placement which he would like to think about further. Continues to have significant nausea and dry heaves. Medications: Reviewed: Yes Medication Review Details: Current Medications Generic Name Dose Route Start Last Admin Trade Name Freq PRN Reason Stop Dose Admin Enoxaparin Sodium 40 mg 05/15/19 19:00 05/15/19 19:40 Lovenox SUBCUT 40 mg Q24H BONITA Administration Sodium Chloride 1,000 mls @ 100 m ls/hr 05/15/19 18:56 05/16/19 05:54 Sodium Chloride 0.9% IV 100 mls/hr .Q10H BONITA Administration Ceftriaxone Sodium 1,000 mg/ 50 mls @ 100 mls/ hr 05/15/19 18:56 05/15/19 19:39 Sodium Chloride IV 100 mls/hr Q24H BONITA Administration Protocol Multivitamins Ther apeutic 1 tab 05/16/19 09:00 05/16/19 08:33 Multivitamin Tab PO Not Given DAILY BONITA Ondansetron HCl 8 mg 05/15/19 18:56 05/16/19 05:52 Zofran IVP 8 mg Q8H PRN Administration vomiting, or N/V if npo Vitamin D 1,000 unit 05/15/19 19:30 05/16/19 08:33 Vitamin D3 PO Not Given DAILY BONITA Vitals/I&O/Wt Last Vital Signs Temp 98.1 F 05/16/19 07:49 Pulse 89 05/16/19 07:49 Resp 18 05/16/19 07:49 BP 129/71 05/16/19 07:49 Pulse Ox 97 05/16/19 07:49 05/15/19 05/16/19 05/16/19 22:59 06:59 14:59 Intake Total 170 / 170 830 / 1000 Output Total 200 / 200 Balance 170 / 170 630 / 800 Weight last 48 hrs Weight 70.624 kg Physical Exam Const: COMMON NORMALS: no apparent distress and oriented x3 GENERAL APPEARANCE: cooperative and comfortable ORIENTATION/CONSCIOUSNESS: Yes awake HENMT: COMMON NORMALS: normocephalic, head/scalp atraumatic and hearing grossly normal bilaterally HEAD & SCALP: normocephalic and atraumatic MOUTH: moist mucous membranes abnormal Details: cracked TEETH & GINGIVA: Yes poor dentition Eye: COMMON NORMALS: PERRL, EOMs intact bilaterally and conjunctivae normal CONJUNCTIVA: Yes conjunctivae normal PUPIL: Yes PERRL Neck/C-Spine: COMMON NORMALS: full ROM GENERAL: Yes normal visual inspection and Yes trachea midline Resp: COMMON NORMALS: normal respiratory effort, no retractions, no use of accessory muscles and clear to auscultation bilaterally EFFORT & INSPECTION: Yes able to speak in complete sentences, Yes symmetric chest movement and No tachypneic AUSCULTATION: clear to auscultation bilaterally Cardio: COMMON NORMALS: regular rate, regular rhythm, S1 normal heart sound, S2 normal heart sound and no murmurs RATE: regular rate RHYTHM: regular rhythm HEART SOUNDS: S1 normal and S2 normal GI: COMMON NORMALS: normal to inspection, nondistended, normoactive bowel sounds, soft to palpation and non-tender PALPATION: Yes soft Extremity: COMMON NORMALS: normal to inspection, full ROM and no clubbing, cyanosis or edema; negative for no pedal edema Neuro: COMMON NORMALS: oriented x3, moves all extremities, no focal motor deficits and no sensory deficits noted Psych: COMMON NORMALS: mental status grossly normal, thought process normal, cooperative, affect normal and speech normal SPEECH: Yes normal speech THOUGHT PROCESS: normal thought process Skin: COMMON NORMALS: no rashes or lesions noted, no jaundice, no petechiae and no mottling GENERAL SKIN EXAM: no rashes or lesions noted Data : 05/16/19 04:17 05/16/19 04:17 A&P Assessment and plan (1) 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 Shea and Dr. Rapp -pain control, antiemetics as needed -fall precautions -per Onc documentation, patient had declined hospice Status: Acute Code(s): C79.51 - Secondary malignant neoplasm of bone; C22.0 - Liver cell carcinoma (2) Acute dehydration: -secondary to poor oral intake -on IVF hydration, encourage oral hydration Status: Acute Code(s): E86.0 - Dehydration (3) Acute kidney failure: -has significantly elevated Cr that has mildly improved today -previously normal Cr -continue to monitor renal function -renal impairment is likely secondary to dehydration -on IVF hydration -avoid nephrotoxins, renally dose meds -noted CT A/P Status: Acute Qualifiers: Acute renal failure type: unspecified Qualified Code(s): N17.9 - Acute kidney failure, unspecified Code(s): N17.9 - Acute kidney failure, unspecified (4) Dysphagia: -has known dysphagia, has had esophageal dilation done by ENT Dr. Tian with improved ability to swallow -diagnosed with eosinophilic esophagitis -modified barium swallow done though patient unable to complete -aspiration precautions -noted possibility of gastroparesis on gastrograffin study indicating delayed emptying and gastric retention; also showed moderate esophageal dysmotility -on PPI -Wants to try peripheral nutrition pending decision on feeding tube placement Status: Acute Qualifiers: Dysphagia type: unspecified Qualified Code(s): R13.10 - Dysphagia, unspecified Code(s): R13.10 - Dysphagia, unspecified Additional A&P Information -Chronic pain, on chronic opiates -hx of CAD s/p angioplasty to LAD and OM1; f/u with Dr. Connolly. Echo (2018): EF=50%, stress testing in 01/2018 showing myocardial scarring in LAD area with small area of antony-infarction ischemia. Recently resumed plavix. Off ASA -Hyperlipidemia; not on statin, diet controlled -HTN -PEARL on CPAP -DM type II complicated by peripheral neuropathy -GERD -DJD of spine -hx of subacute hematoma (R) -Gout -noted ALP, lipase elevation likely from hepatocellular carcinoma with none mets -currently NPO for MBS -GI ppx with PPI -DVT ppx with Lovenox -Dispo: home -Code status: FULL code Attestations Medical Necessity Statement*: Patient requires hospitalization for continued IVF hydration, monitoring of renal function, management of dysphagia. Time Spent in Patient Care: Greater than 35 minutes (>than 50% of time spent in counselling and/or direct pt care on unit). 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
--- NOTE | 2019-05-16 10:25 | PC.PHAR ---
Lovenox dosing changed from 40mg Q24h changed to 30mg Q24h based on pt renal function and crcl (13). Will continue to monitor and make changes when appropriate.
--- NOTE | 2019-05-16 13:38 | PC.CHAP ---
Pastoral Care Encounter/Spiritual Assessment Type of Contact [] Declined validation manager visit [] Patient/Family/Request visit [] Outpatient visit [] Follow-up visit [] Physician referral [] Code/Alert [x] Routine visit [] Staff referral [] Actively dying [] Patient sleeping [x] Family support [] [] Out of room [] Palliative care [] [] Receiving care in room [] Pre-surgical visit [] Trauma [] Long length of stay [] ICU visit [] Other: Relational/Emotional Strength [] Patient feels connected with others/family/visitors/staff [] Distress [] Loneliness/isolation [] Abandonment Spirituality of Patient [x] Person of Va [] Attends Latter-Day of their Va [x] Believes in Prayer [] Reads Bible or Restorationism materials [] There are Spiritual issues to be addressed Branch Retail Executive Interventions [x] Prayer [x] Active listening [x] Non-anxious presence [x] Spiritual/emotional support [] Crisis/trauma care [] Spiritual counseling [] Bereavement support [] Provided bereavement packet [] Provided Bible/devotional materials [] Provided toy/stuffed animal, coloring book to patient or family member [] Provided Communion [] Anointing/[place] [] Salvation [x] Completed spiritual assessment [] Other: Reassurance of the promises of salvation Impact on Illness or Injury [] Angry [] Fearful [x] Anxious [] Often cries [] Exhaustion [] Unable to work [] Unable to attend sabianist [] Unable to walk/stand [] Unable to read [] Unable to drive [] Unable to eat/drink [] Unable to sleep [] Unable to be with family [] Patient intubated [] Other: Summary Patient stated he was in the end stages of liver cancer and there was nothing more that could be done. Patient asked for prayer that he would go to [facility] when he . Discussed patient's beliefs with him and reassured him of the promises of his Mandaeism va. Prayed with the patient and his family. Visited by Branch Retail Executive Garcia Delcid Time spent with patient 20 minutes
[2019-05-16] MEDS: cefTRIAXone 1,000 MG in sodium chloride 0.9% (plus) 50 ML 100 MG IV (18:05)
[2019-05-16] MEDS: enoxaparin 30 mg/0.3 mL Syringe SUBCUT (18:06)
[2019-05-16] MEDS: fentaNYL 50 mcg Patch 1 PATCH TRANSDERMA (21:18)
[2019-05-17] VITALS (7 sets, daily range): BP systolic 127–167; BP diastolic 70–92; PULSE 81–93; RESP 12–20; TEMP 36.6–37; O2SAT 94–97
[2019-05-17] MEDS: LORazepam 2 mg/mL INJ 1 mL 1 MG IVP (00:36)
[2019-05-17] MEDS: sodium chloride 0.9% 1,000 ML 100 ML IV ×3 (00:56→20:27)
[2019-05-17 06:04] LABS: Basophils # 0.1 10^3/uL (0.0-0.1); Basophils % 1.1 %; Eosinophils # 0.1 10^3/uL (0.0-0.8); Hematocrit 31.1 % (42.0-52.0); Hemoglobin 9.9 g/dL (11.7-16.6); Lymphocytes # 0.4 10^3/uL (0.8-4.8); Lymphocytes % 7.2 %; Mean Corpuscular HGB Conc 31.8 g/dL (30.0-36.0); Mean Corpuscular Hemoglobin 30.5 pg (28.0-34.0); Mean Corpuscular Volume 95.7 fL (80-94); Monocytes # 0.5 10^3/uL (0.2-0.9); Neutrophils # 4.4 10^3/uL (1.8-7.7); Neutrophils % 80.3 %; Nucleated Red Blood Cells % 0 %; Platelet Count 305 10^3/cmm (130-400); Red Blood Count 3.25 10^6/uL (4.1-5.3); Red Cell Distribution Width 15.2 % (12.1-15.1); White Blood Count 5.5 10^3/uL (4.0-10.0)
[2019-05-17 06:25] LABS: Alanine Aminotransferase 18 U/L (0-41); Albumin Level 2.9 g/dL (3.5-5.2); Alkaline Phosphatase 201 IU/L (40-130); Anion Gap 19.3 (5-19); Aspartate Amino Transferase 19 U/L (0-40); Blood Urea Nitrogen 38 mg/dL (8-23); Carbon Dioxide 15 mmol/L (22-29); Chloride 110 mmol/L (98-107); Globulin 3.1 g/dL (1.3-4.6); Glucose 96 mg/dL (74-106); Magnesium 1.7 mg/dL (1.7-2.3); Phosphorus 4.1 mg/dL (2.5-4.5); Potassium 4.3 mmol/L (3.5-5.1); Sodium 140 mmol/L (136-145); Total Bilirubin 0.3 mg/dL (0.15-1.2)
[2019-05-17 06:28] LABS: Calcium 5.8 mg/dL (8.5-10.5)
[2019-05-17] MEDS: ondansetron 2 mg/ML SDV 2 mL 8 MG IVP ×2 (07:09→14:53)
[2019-05-17 07:18] LABS: Procalcitonin 0.14 ng/mL (0-0.5)
[2019-05-17] MEDS: metoclopramide oral liquid 5 mg/5 mL (ml) PO ×4 (07:58→20:26)
--- NOTE | 2019-05-17 09:52 | P.PN_ITS ---
Subjective Subjective: Interval history: AM labs noted, received 2 gm dose of calcium gluconate. Had 625 mL urine output overnight. Patient seen and examined, reports feeling a little better today, more energetic. Describes having had nausea and dry heaves last night. Would like to receive his antiemetics throughout the day rather than at one time to see if this will control his nausea better. Discussed nutritional options and he seems to be leaning more towards continuation of peripheral nutrition rather than a feeding tube. Medications: Reviewed: Yes Medication Review Details: Current Medications Generic Name Dose Route Start Last Admin Trade Name Freq PRN Reason Stop Dose Admin Enoxaparin Sodium 30 mg 05/16/19 19:00 05/16/19 18:06 Lovenox SUBCUT 30 mg Q24H BONITA Administration Fentanyl 1 patch 05/16/19 20:00 05/16/19 21:18 Duragesic 50 Mcg Patch TRANSDERMA 1 patch Q72H BONITA Administration Sodium Chloride 1,000 mls @ 100 m ls/hr 05/15/19 18:56 05/17/19 00:56 Sodium Chloride 0.9% IV 100 mls/hr .Q10H BONITA Administration Ceftriaxone Sodium 1,000 mg/ 50 mls @ 100 mls/ hr 05/15/19 18:56 05/16/19 19:04 Sodium Chloride IV Infused Q24H BONITA Infusion Protocol Multivitamins 10 m l/ Amino 1,010 mls @ 0 mls /hr 05/16/19 20:30 05/17/19 04:42 Acids/Electrolyt es IV 10 mls/hr .Q0M BONITA Infusion Protocol Per Protocol Lorazepam 1 mg 05/17/19 00:13 05/17/19 00:36 Ativan IVP 1 mg Q6H PRN Administration ANXIETY Metoclopramide HCl 5 mg 05/16/19 21:00 05/17/19 07:58 Reglan PO 5 ml AC&BEDTIME BONITA Administration Multivitamins Ther apeutic 1 tab 05/16/19 09:00 05/17/19 07:05 Multivitamin Tab PO Not Given DAILY BONITA Ondansetron HCl 8 mg 05/15/19 18:56 05/17/19 07:09 Zofran IVP 8 mg Q8H PRN Administration vomiting, or N/V if npo Vitamin D 1,000 unit 05/15/19 19:30 05/17/19 07:05 Vitamin D3 PO Not Given DAILY BONITA Vitals/I&O/Wt Last Vital Signs Temp 98.6 F 05/17/19 07:30 Pulse 81 05/17/19 07:30 Resp 16 05/17/19 07:30 BP 157/79 05/17/19 07:30 Pulse Ox 97 05/17/19 07:30 05/16/19 05/17/19 05/17/19 22:59 06:59 14:59 Intake Total 840 / 1671.667 489 / 2160.667 Output Total 350 / 350 425 / 775 Balance 490 / 1321.667 64 / 1385.667 Weight last 48 hrs Weight 70.624 kg Physical Exam Const: COMMON NORMALS: no apparent distress and oriented x3 GENERAL APPEARA NCE: cooperative and comfortable ORIENTATION/CONSCIOUSNESS: Yes awake HENMT: COMMON NORMALS: normocephalic, head/scalp atraumatic and hearing grossly normal bilaterally HEAD & SCALP: normocephalic and atraumatic MOUTH: moist mucous membranes abnormal Details: cracked TEETH & GINGIVA: Yes poor dentition Eye: COMMON NORMALS: PERRL, EOMs intact bilaterally and conjunctivae normal CONJUNCTIVA: Yes conjunctivae normal PUPIL: Yes PERRL Neck/C-Spine: COMMON NORMALS: full ROM GENERAL: Yes normal visual inspection and Yes trachea midline Resp: COMMON NORMALS: normal respiratory effort, no retractions, no use of accessory muscles and clear to auscultation bilaterally EFFORT & INSPECTION: Yes able to speak in complete sentences, Yes symmetric chest movement and No tachypneic AUSCULTATION: clear to auscultation bilaterally Cardio: COMMON NORMALS: regular rate, regular rhythm, S1 normal heart sound, S2 normal heart sound and no murmurs RATE: regular rate RHYTHM: regular rhythm HEART SOUNDS: S1 normal and S2 normal GI: COMMON NORMALS: normal to inspection, nondistended, normoactive bowel sounds, soft to palpation and non-tender PALPATION: Yes soft Extremity: COMMON NORMALS: normal to inspection, full ROM and no clubbing, cyanosis or edema; negative for no pedal edema Neuro: COMMON NORMALS: oriented x3, moves all extremities, no focal motor deficits and no sensory deficits noted Psych: COMMON NORMALS: mental status grossly normal, thought process normal, cooperative, affect normal and speech normal SPEECH: Yes normal speech THOUGHT PROCESS: normal thought process Skin: COMMON NORMALS: no rashes or lesions noted, no jaundice, no petechiae and no mottling GENERAL SKIN EXAM: no rashes or lesions noted Data : 05/17/19 05:25 05/17/19 05:25 Micro: Microbiology 05/15/19 21:53 Urine Culture - Preliminary Urine,Voided A&P Assessment and plan (1) 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 Shea and Dr. Rapp -pain control, antiemetics as needed -fall precautions -per Onc documentation, patient had declined hospice Status: Acute Code(s): C79.51 - Secondary malignant neoplasm of bone; C22.0 - Liver cell carcinoma (2) Acute dehydration: -secondary to poor oral intake -on IVF hydration, encourage oral hydration Status: Acute Code(s): E86.0 - Dehydration (3) Acute kidney failure: -has significantly elevated Cr that has mildly improved today -previously normal Cr -continue to monitor renal function -renal impairment is likely secondary to dehydration -on IVF hydration -avoid nephrotoxins, renally dose meds -noted CT A/P Status: Acute Qualifiers: Acute renal failure type: unspecified Qualified Code(s): N17.9 - Acute kidney failure, unspecified Code(s): N17.9 - Acute kidney failure, unspecified (4) Dysphagia: -has known dysphagia, has had esophageal dilation done by ENT Dr. Tian wit h improved ability to swallow. Case discussed with Dr. Tian today, offered endoscopic evaluation which I will discuss further with the patient -diagnosed with eosinophilic esophagitis -modified barium swallow done though patient unable to complete -aspiration precautions -noted possibility of gastroparesis on gastrograffin study indicating delayed emptying and gastric retention; also showed moderate esophageal dysmotility -on PPI -Wants to try peripheral nutrition pending decision on feeding tube placement Status: Acute Qualifiers: Dysphagia type: unspecified Qualified Code(s): R13.10 - Dysphagia, unspecified Code(s): R13.10 - Dysphagia, unspecified Additional A&P Information -Chronic pain, on chronic opiates -hx of CAD s/p angioplasty to LAD and OM1; f/u with Dr. Connolly. Echo (2018): EF=50%, stress testing in 01/2018 showing myocardial scarring in LAD area with small area of antony-infarction ischemia. Recently resumed plavix. 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 Will d/c abx -Hypocalcemia; replace as needed; corrected Ca-6.7. Will add calcium to peripheral nutrition -on PPN -GI ppx with PPI -DVT ppx with Lovenox -Dispo: home -Code status: FULL code Attestations Medical Necessity Statement*: Patient requires hospitalization for continued peripheral nutrition, management of acute kidney injury and dehydration. Time Spent in Patient Care: Greater than 35 minutes (>than 50% of time spent in counselling and/or direct pt care on unit) . 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
[2019-05-17 12:06] LABS: Glucose Point of Care 113 mg/dL (70-110)
--- NOTE | 2019-05-17 14:16 | PC.CHAP ---
Pastoral Care Encounter/Spiritual Assessment Type of Contact [] Declined director reactor projects visit [] Patient/Family/Request visit [] Outpatient visit [] Follow-up visit [] Physician referral [] Code/Alert [x] Routine visit [] Staff referral [] Actively dying [] Patient sleeping [] Family support [] [] Out of room [] Palliative care [] [] Receiving care in room [] Pre-surgical visit [] Trauma [] Long length of stay [] ICU visit [] Other: Relational/Emotional Strength [x] Patient feels connected with others/family/visitors/staff [] Distress [] Loneliness/isolation [] Abandonment Spirituality of Patient [x] Person of Va [] Attends Amish of their Va [x] Believes in Prayer [] Reads Bible or Synagogue materials [] There are Spiritual issues to be addressed Drilling And Production Superintendent Interventions [x] Prayer [x] Active listening [x] Non-anxious presence [x] Spiritual/emotional support [] Crisis/trauma care [] Spiritual counseling [] Bereavement support [] Provided bereavement packet [] Provided Bible/devotional materials [] Provided toy/stuffed animal, coloring book to patient or family member [] Provided Communion [] Anointing/[place] [] Salvation [] Completed spiritual assessment [] Other: Impact on Illness or Injury [] Angry [] Fearful [] Anxious [] Often cries [] Exhaustion [] Unable to work [] Unable to attend latter day [] Unable to walk/stand [] Unable to read [] Unable to drive [] Unable to eat/drink [] Unable to sleep [] Unable to be with family [] Patient intubated [] Other: Summary The director reactor projects was asked to visit the patient by a friend of the his that was in ICU. The director reactor projects visited the patient and prayed for him. Time spent with patient 10 min.
--- NOTE | 2019-05-17 15:52 | PC.NUTR ---
NUTR TF RECOMMENDATIONS: Glucerna with goal rate of 50 ml/hr providing 1440 kcal (84%), 72 g PRO (101%), and 966 ml fluid (56%)(%NEEDS). Suggest starting TF at 20 ml and increase by 10 ml Q6H as tolerated till goal rate is met. Suggest 100 ml H2O flushes Q4H to approach fluid needs or per physician.
[2019-05-17] MEDS: enoxaparin 30 mg/0.3 mL Syringe SUBCUT (17:50)
[2019-05-17 19:46] LABS: Glucose Point of Care 119 mg/dL (70-110)
[2019-05-18] VITALS (7 sets, daily range): BP systolic 146–162; BP diastolic 74–83; PULSE 74–101; RESP 12–20; TEMP 36.4–37; O2SAT 96–98; BMI 23.9
[2019-05-18] MEDS: ondansetron 2 mg/ML SDV 2 mL 8 MG IVP ×3 (03:52→22:43)
[2019-05-18] MEDS: sodium chloride 0.9% 1,000 ML 100 ML IV ×2 (06:06→17:21)
[2019-05-18 07:12] LABS: Basophils # 0.1 10^3/uL (0.0-0.1); Eosinophils # 0.2 10^3/uL (0.0-0.8); Eosinophils % 2.3 %; Hematocrit 30.5 % (42.0-52.0); Hemoglobin 9.3 g/dL (11.7-16.6); Lymphocytes # 0.3 10^3/uL (0.8-4.8); Lymphocytes % 3.6 %; Mean Corpuscular HGB Conc 30.5 g/dL (30.0-36.0); Mean Platelet Volume 9.2 fL (7.4-10.4); Monocytes # 0.5 10^3/uL (0.2-0.9); Monocytes % 5.8 %; Neutrophils # 7.2 10^3/uL (1.8-7.7); Neutrophils % 86.8 %; Nucleated Red Blood Cells % 0 %; Platelet Count 282 10^3/cmm (130-400); Red Blood Count 3.21 10^6/uL (4.1-5.3); Red Cell Distribution Width 15.4 % (12.1-15.1); White Blood Count 8.3 10^3/uL (4.0-10.0)
[2019-05-18 07:24] LABS: Alanine Aminotransferase 18 U/L (0-41); Albumin Level 2.9 g/dL (3.5-5.2); Alkaline Phosphatase 206 IU/L (40-130); Anion Gap 17.1 (5-19); Aspartate Amino Transferase 22 U/L (0-40); Blood Urea Nitrogen 36 mg/dL (8-23); Calcium 6.1 mg/dL (8.5-10.5); Carbon Dioxide 15 mmol/L (22-29); Chloride 112 mmol/L (98-107); Globulin 3.1 g/dL (1.3-4.6); Magnesium 1.6 mg/dL (1.7-2.3); Phosphorus 3.6 mg/dL (2.5-4.5); Potassium 4.1 mmol/L (3.5-5.1); Sodium 140 mmol/L (136-145); Total Bilirubin 0.3 mg/dL (0.15-1.2)
--- NOTE | 2019-05-18 09:08 | PM.PN ---
Subjective Subjective: Interval history: AM labs noted, received 1 dose of Zofran overnight. Patient seen and examined several times throughout the day, when initially seen earlier this morning, reported feeling quite unwell, has had persistent nausea and vomiting throughout most of the morning. Requesting to have fentanyl patch removed in case this is contributing to his symptoms. Currently very apprehensive about taking anything orally so we will switch his medications to IV. We will trial him on steroids for antiemetic effect. Case discussed with Dr. Tian who is agreeable to endoscopy likely tomorrow AM. Patient seen again in the afternoon, still reporting some nausea but this has improved significantly since this morning. Noted improvement in creatinine today. Medications: Reviewed: Yes Medication Review Details: Current Medications Generic Name Dose Route Start Last Admin Trade Name Freq PRN Reason Stop Dose Admin Enoxaparin Sodium 30 mg 05/16/19 19:00 05/17/19 17:50 Lovenox SUBCUT 30 mg Q24H BONITA Administration Fentanyl 1 patch 05/16/19 20:00 05/16/19 21:18 Duragesic 50 Mcg Patch TRANSDERMA 1 patch Q72H BONITA Administration Sodium Chloride 1,000 mls @ 100 m ls/hr 05/15/19 18:56 05/18/19 06:06 Sodium Chloride 0.9% IV 100 mls/hr .Q10H BONITA Administration Famotidine 20 mg/ 1,007 mls @ 83 ml s/hr 05/18/19 08:30 05/18/19 08:49 Multivitamins 5 ml / Amino IV 83 mls/hr Acids/Electrolytes .Q12H8M BONITA Administration Lorazepam 1 mg 05/17/19 00:13 05/17/19 00:36 Ativan IVP 1 mg Q6H PRN Administration ANXIETY Metoclopramide HCl 5 mg 05/16/19 21:00 05/18/19 08:58 Reglan PO Not Given AC&BEDTIME BONITA Multivitamins Ther apeutic 1 tab 05/16/19 09:00 05/17/19 07:05 Multivitamin Tab PO Not Given DAILY BONITA Ondansetron HCl 8 mg 05/15/19 18:56 05/18/19 03:52 Zofran IVP 8 mg Q8H PRN Administration vomiting, or N/V if npo Vitamin D 1,000 unit 05/15/19 19:30 05/17/19 07:05 Vitamin D3 PO Not Given DAILY BONITA Vitals/I&O/Wt Last Vital Signs Temp 98.0 F 05/18/19 07:52 Pulse 77 05/18/19 07:52 Resp 18 05/18/19 07:52 BP 146/74 05/18/19 07:52 Pulse Ox 98 05/18/19 07:52 05/17/19 05/18/19 05/18/19 22:59 06:59 14:59 Intake Total 1120 / 2068.333 1085 / 3153.333 Output Total 600 / 600 Balance 520 / 6133.536 0171 / 2553.333 Weight last 48 hrs Weight 73.51 kg Physical Exam Const: COMMON NORMALS: no apparent distress and oriented x3 GENERAL APPEARANCE: cooperative and anxious ORIENTATION/CONSCIOUSNESS: Yes awake HENMT: COMMON NORMALS: normocephalic, head/scalp atraumatic and hearing grossly normal bilaterally HEAD & SCALP: normocephalic and atraumatic MOUTH: moist mucous membranes abnormal Details: cracked TEETH & GINGIVA: Yes poor dentition Eye: COMMON NORMALS: PERRL, EOMs intact bilaterally and conjunctivae normal CONJUNCTIVA: Yes conjunctivae normal PUPIL: Yes PERRL Neck/C-Spine: COMMON NORMALS: full ROM GENERAL: Yes normal visual inspection and Yes trachea midline Resp: COMMON NORMALS: normal respiratory effort, no retractions, no use of accessory muscles and clear to auscultation bilaterally EFFORT & INSPECTION: Yes able to speak in complete sentences, Yes symmetric chest movement and No tachypneic AUSCULTATION: clear to auscultation bilaterally Cardio: COMMON NORMALS: regular rate, regular rhythm, S1 normal heart sound, S2 normal heart sound and no murmurs RATE: regular rate RHYTHM: regular rhythm HEART SOUNDS: S1 normal and S2 normal GI: COMMON NORMALS: soft to palpation and non-tender INSPECTION: Yes normal to inspection and No abdominal distension AUSCULTATION: Yes hyperactive bowel sounds PALPATION: Yes soft Extremity: COMMON NORMALS: normal to inspection, full ROM and no clubbing, cyanosis or edema; negative for no pedal edema Neuro: COMMON NORMALS: oriented x3, moves all extremities, no focal motor deficits and no sensory deficits noted Psych: COMMON NORMALS: mental status grossly normal, thought process normal, cooperative, affect normal and speech normal SPEECH: Yes normal speech THOUGHT PROCESS: normal thought process Skin: COMMON NORMALS: no rashes or lesions noted, no jaundice, no petechiae and no mottling GENERAL SKIN EXAM: no rashes or lesions noted Data : 05/18/19 06:50 05/18/19 06:50 Micro: Microbiology 05/15/19 21:53 Urine Culture - Final Urine,Voided A&P Assessment and plan (1) Intractable nausea and vomiting: -Patient continues to have intractable nausea and vomiting which seems to have worsened today -Discontinue fentanyl patch in case this is contributing to his symptoms per his request -Very reluctant to take any medications by mouth so we will continue IV Zofran, add dexamethasone for antiemetic effect -Continue IV fluid hydration -Plan for EGD in a.m. -keep NPO Status: Acute Code(s): R11.2 - Nausea with vomiting, unspecified (2) Dysphagia: -has known dysphagia, has had esophageal dilation done by ENT Dr. Tian with improved ability to swallow. Case discussed with Dr. Tian, offered endoscopic evaluation which patient is agreeable to; scheduled for tomorrow -diagnosed with eosinophilic esophagitis -modified barium swallow done though patient unable to complete -aspiration precautions -noted possibility of gastroparesis on gastrograffin study indicating delayed emptying and gastric retention; also showed moderate esophageal dysmotility. 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 Shea and Dr. Rapp -pain control, antiemetics as needed -fall precautions -per Onc documentation, patient had declined hospice Status: Acute Code(s): C79.51 - Secondary malignant neoplasm of bone; C22.0 - Liver cell carcinoma (4) Acute dehydration: -secondary to poor oral intake and intractable nausea/vomiting -on IVF hydration, encourage oral hydration Status: Acute Code(s): E86.0 - Dehydration (5) Acute kidney failure: -has significantly elevated Cr that has mildly improved today -previously normal Cr -continue to monitor renal function -renal impairment is likely secondary to dehydration -on IVF hydration -avoid nephrotoxins, renally dose meds -noted CT A/P Status: Acute Qualifiers: Acute renal failure type: unspecified Qualified Code(s): N17.9 - Acute kidney failure, unspecified Code(s): N17.9 - Acute kidney failure, unspecified Additional A&P Information -Chronic pain, on chronic opiates -hx of CAD s/p angioplasty to LAD and OM1; f/u with Dr. Connolly. Echo (2018): EF=50%, stress testing in 01/2018 showing myocardial scarring in LAD area with small area of antony-infarction ischemia. Recently resumed plavix. 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 Off abx -Hypocalcemia; replace as needed; corrected Ca-7.0. Added calcium to peripheral nutrition -on PPN -GI ppx with PPI -DVT ppx with Lovenox -Dispo: home -Code status: FULL code Attestations Medical Necessity Statement*: Patient requires hospitalization for continued management of acute renal impairment, intractable nausea/vomiting, and continued peripheral nutrition. Time Spent in Patient Care: Greater than 35 minutes (>than 50% of time spent in counselling and/or direct pt care on unit). 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
[2019-05-18 09:13] LABS: Glucose 134 mg/dL (65-115)
--- NOTE | 2019-05-18 11:15 | PC.NURSE ---
Pt refusing all PO meds. Dr. Crenshaw notified.
--- NOTE | 2019-05-18 11:45 | PC.SOCIAL ---
Pg 2 of IMM Pg 2 of IMM was explained to and signed by patient, copy was provided, and form placed in chart. He verbalized understanding and had no questions.
[2019-05-18] MEDS: dexamethasone 4 mg/mL INJ IVP ×2 (14:43→19:59)
--- NOTE | 2019-05-18 14:45 | P.CONIM_ITS ---
Providers/Reason For Consult Consulting Physican/Specialty*: Ear nose and throat Reason for Consult*: Dysphagia Attending Physician: Louise Crenshaw MD Primary Care Provider: Rich Doe History of Present Illness History of Present Illness Victoriano Resendiz is a 69 year old male who is well-known to me. I have seen him previously for progressive dysphasia and performed a dilation. He has had progression of his cancer and progressive dysphasia resulting in inability to swallow. He also has intractable nausea and vomiting. Review of Systems Narrative: Const: Denies: fever, chills, fatigue or malaise Eyes: Denies: change in vision or blurry vision Card: Denies: chest pain or palpitations Resp: Denies: shortness of breath, productive cough, non-productive cough or wheezing GI: Reports: nausea, vomiting, difficulty swallowing and feeling full early; Denies: abdominal pain, vomiting blood, diarrhea, constipation, blood in stool or black tarry stool : Denies: flank pain, difficulty urinating, painful urination or urinary frequency Musc: Denies: neck pain or back pain Skin/Breast: Denies: rash Neuro: Denies: headache, dizziness or vertigo Psych: Denies: anxiety or depression Endo: Denies: excessive urination or excessive thirst Meds/Allergies Home Medications and Allergies Home Medications Medication Instructions Recorded Confirmed Type gabapentin 300 mg capsule 300 mg PO TID 04/18/19 05/15/19 History cholecalciferol (vitamin D3) 25 1,000 unit PO DAILY 04/21/19 05/15/19 History mcg (1,000 unit) capsule cod liver oil 1 cap PO BID 04/21/19 05/15/19 History cyclobenzaprine 10 mg tablet 10 mg PO TID PRN 04/21/19 05/15/19 History docusate sodium 100 mg capsule 100 mg PO PRN cap 04/21/19 05/15/19 History lorazepam 1 mg tablet 1 mg PO Q4H PRN 04/21/19 05/15/19 History lubiprostone 24 mcg capsule 24 mcg PO BID 04/21/19 05/15/19 History nitroglycerin 0.4 mg sublingual 0.4 mg SUBLINGUAL Q5M PRN 04/21/19 05/15/19 History tablet ondansetron HCl 4 mg tablet 4 mg PO Q4H 04/21/19 05/15/19 History oxycodone 15 mg tablet 30 mg PO QID PRN tab 04/21/19 05/15/19 History pantoprazole 40 mg tablet,delayed 40 mg PO DAILY PRN 04/21/19 05/15/19 History release prednisone 10 mg tablet 10 mg PO DIRECTED tab 04/21/19 05/15/19 History Xgeva See Rx Instructions .ROUTE .COMPLEX 05/15/19 05/15/19 History fentanyl 1 patch TRANSDERMAL Q72H 05/15/19 05/15/19 History multivitamin [Multiple Vitamins] 1 tab PO DAILY 05/15/19 05/15/19 History Allergies Allergy/AdvReac Type Severity Reaction Status Date / Time No Known Allergies Allergy Verified 04/21/19 15:09 Current Medications Current Medications Generic Name Dose Route Start Last Admin Trade Name Freq PRN Reason Stop Dose Admin Enoxaparin Sodium 30 mg 05/16/19 19:00 05/17/19 17:50 Lovenox SUBCUT 30 mg Q24H BONITA Administration Sodium Chloride 1,000 mls @ 100 mls/hr 05/15/19 18:56 05/18/19 06:06 Sodium Chloride 0.9% IV 100 mls/hr .Q10H BONITA Administration Famotidine 20 mg/ 1,007 mls @ 83 mls/hr 05/18/19 08:30 05/18/19 08:49 Multivitamins 5 ml/ Amino IV 83 mls/hr Acids/Electrolytes .Q12H8M BONITA Administration Lorazepam 1 mg 05/17/19 00:13 05/17/19 00:36 Ativan IVP 1 mg Q6H PRN Administration ANXIETY Metoclopramide HCl 5 mg 05/16/19 21:00 05/18/19 14:36 Reglan PO Not Given AC&BEDTIME BONITA Multivitamins Therapeutic 1 tab 05/16/19 09:00 05/18/19 11:15 Multivitamin Tab PO Not Given DAILY BONITA Ondansetron HCl 8 mg 05/15/19 18:56 05/18/19 12:44 Zofran IVP 8 mg Q8H PRN Administration vomiting, or N/V if npo Vitamin D 1,000 unit 05/15/19 19:30 05/18/19 11:14 Vitamin D3 PO Not Given DAILY BONITA PFSH Acute PFSH: Statuses (acute, chronic, etc) shown below reflect problem list status as previously entered and may not be historically accurate Medical History ASHD (arteriosclerotic heart disease) (Acute) No ASA or Plavix due to stomach ulcers. Pt had subdural hematoma Bruxism (Acute) Monica syndrome (Acute) H. 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 (Acute) Hyperlipidemia (Acute) Taken off the meds by Dr Shea Hypertension (Acute) taken off the BP meds by Dr Shea Low back pain (Acute) Neck pain (Acute) Obstructive sleep apnea (Acute) Pericardial effusion (Acute) Spondylisthesis (Acute) Ulnar neuropathy (Acute) Surgical History History of carpal tunnel surgery (Acute) Family History Other CAD (coronary artery disease) Diabetes Hypertension Stroke Social History Smoking and tobacco status: former smoker Alcohol intake: former Substance/Drug Use: never Vitals/I&O/Wt Last Vital Signs Temp 98.4 F 05/18/19 14:40 Pulse 78 05/18/19 14:40 Resp 20 H 05/18/19 14:40 BP 161/77 05/18/19 14:40 Pulse Ox 98 05/18/19 14:40 05/17/19 05/18/19 05/18/19 22:59 06:59 14:59 Intake Total 1120 / 2068.333 1085 / 3153.333 Output Total 600 / 600 Balance 520 / 2264.431 2382 / 2553.333 Weight last 48 hrs Weight 162 lb 1 oz Weight 162 lb 1 oz Physical Exam Narrative: EXAM NARRATIVE: Const: The patient is in no apparent distress, average body habitus, oriented x3, no limitations and healthy appearing GENERAL APPEARANCE: Cooperative, comfortable, well kempt, thin ORIENTATION/CONSCIOUSNESS: Awake, oriented to person, oriented to place and oriented to time HENMT: Normocephalic, head/scalp atraumatic, head and scalp normal to inspection, FACE & SINUS: Normal facial exam, sinuses nontender and face symmetric NOSE: external nose normal, nares normal, no nasal polyps, nasal mucous membranes and turbinates normal and septum deviated EXTERNAL EAR: External ears normal EXTERNAL AUDITORY CANAL: EAC's normal TYMPANIC MEMBRANE: TM's normal bilaterally HEARING: Normal to whisper AU ORAL CAVITY: Oral and palatal mucosa normal, lip normal, tongue normal, salivary glands and ducts normal and moist mucous membranes OROPHARYNX: Oropharynx normal, uvula midline Eye: PERRL, EOMs intact bilaterally, conjunctivae normal, no scleral icterus and normal visual storey by confrontation. Alignment normal, periorbital findings normal, eyelids normal, conjunctivae normal, sclerae normal, corneas normal. Neck/C-Spine: Full ROM, no lymphadenopathy in levels I-IV, supple, no meningeal signs, no JVD and thyroid normal GENERAL: THYROID: Thyroid normal Lymph: LYMPHATIC: No lymphedema noted Chest: Inspection of chest normal Resp: Normal respiratory effort, no retractions, no use of accessory muscles and clear to auscultation bilaterally AUSCULTATION: Clear to auscultation bilaterally Cardio: No JVD, RRR Neuro: Oriented x3 and CN's II-XII intact bilaterally except as above SENSORIUM/ORIENTATION: Oriented to person, place and time. Psych: Mental status grossly normal, thought process normal, cooperative, speech normal and denies suicidal ideation APPEARANCE: Grossly normal and Yes well kempt ATTITUDE: Calm and engaged SPEECH: Normal speech THOUGHT PROCESS: Normal thought process JUDGEMENT: Judgment good Skin: No rashes or lesions noted except as above, no wounds, skin turgor normal, no jaundice, no petechiae and no mottling. 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 Informed consent was obtained to proceed with esophagogastroduodenoscopy and possible dilation. The patient is aware the risk of perforation exist and the possibility of being unable to perform the esophagogastroduodenoscopy if a tight obstruction is present. He asked appropriate questions and I believe is well- informed and is willing to proceed with surgery. 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
[2019-05-18] MEDS: enoxaparin 30 mg/0.3 mL Syringe SUBCUT (18:43)
[2019-05-18] MEDS: morphine 4 mg/mL SDV 1 mL 2 MG IVP (22:42)
[2019-05-19] VITALS (15 sets, daily range): BP systolic 122–173; BP diastolic 67–98; PULSE 72–85; RESP 12–20; TEMP 36.5–36.9; O2SAT 96–100
[2019-05-19] MEDS: LORazepam 2 mg/mL INJ 1 mL 0.5 MG IVP (00:38)
[2019-05-19] MEDS: dexamethasone 4 mg/mL INJ IVP ×3 (01:46→20:30)
[2019-05-19] MEDS: sodium chloride 0.9% 1,000 ML 100 ML IV ×2 (03:24→22:32)
[2019-05-19] MEDS: morphine 4 mg/mL SDV 1 mL 2 MG IVP ×4 (03:42→20:06)
[2019-05-19 04:18] LABS: Basophils % 0.4 %; Hematocrit 28.6 % (42.0-52.0); Hemoglobin 9.2 g/dL (11.7-16.6); Lymphocytes # 0.3 10^3/uL (0.8-4.8); Lymphocytes % 4.7 %; Mean Corpuscular HGB Conc 32.2 g/dL (30.0-36.0); Mean Corpuscular Hemoglobin 29.3 pg (28.0-34.0); Mean Corpuscular Volume 91.1 fL (80-94); Mean Platelet Volume 9.8 fL (7.4-10.4); Monocytes # 0.2 10^3/uL (0.2-0.9); Monocytes % 2.7 %; Neutrophils % 91.7 %; Nucleated Red Blood Cells % 0 %; Platelet Count 284 10^3/cmm (130-400); Red Blood Count 3.14 10^6/uL (4.1-5.3); Red Cell Distribution Width 15.1 % (12.1-15.1); White Blood Count 5.5 10^3/uL (4.0-10.0)
[2019-05-19 04:43] LABS: Alanine Aminotransferase 20 U/L (0-41); Albumin Level 2.8 g/dL (3.5-5.2); Alkaline Phosphatase 202 IU/L (40-130); Anion Gap 16.4 (5-19); Aspartate Amino Transferase 26 U/L (0-40); Blood Urea Nitrogen 39 mg/dL (8-23); Carbon Dioxide 16 mmol/L (22-29); Chloride 107 mmol/L (98-107); Globulin 2.8 g/dL (1.3-4.6); Glucose 208 mg/dL (65-115); Potassium 4.4 mmol/L (3.5-5.1); Sodium 135 mmol/L (136-145); Total Bilirubin 0.3 mg/dL (0.15-1.2); Total Protein 5.6 g/dL (6.6-8.7)
[2019-05-19] MEDS: ondansetron 2 mg/ML SDV 2 mL 8 MG IVP (08:56)
--- NOTE | 2019-05-19 09:03 | PM.PN ---
Subjective Subjective: Interval history: The patient's symptoms are largely unchanged. He continues to have nausea and dysphasia. He is otherwise doing fairly well and his pain is under control. Medications: Reviewed: Yes Vitals/I&O/Wt Last Vital Signs Temp 98.1 F 05/19/19 08:00 Pulse 85 05/19/19 08:00 Resp 16 05/19/19 08:47 BP 151/78 05/19/19 08:00 Pulse Ox 99 05/19/19 08:00 05/18/19 05/19/19 05/19/19 22:59 06:59 14:59 Intake Total 2023.3 / 2023.3 1000 / 3024.3 Output Total 150 / 150 520 / 670 Balance 1874.3 / 1874.3 480 / 2354.3 -1 Weight last 48 hrs Weight 171 lb 9 oz Weight 162 lb 1 oz Weight 162 lb 1 oz Physical Exam Narrative: EXAM NARRATIVE: EXAM NARRATIVE: Const: The patient is in no apparent distress, average body habitus, oriented x3, no limitations and healthy appearing GENERAL APPEARANCE: Cooperative, comfortable, well kempt, thin ORIENTATION/CONSCIOUSNESS: Awake, oriented to person, oriented to place and oriented to time HENMT: Normocephalic, head/scalp atraumatic, head and scalp normal to inspection, FACE & SINUS: Normal facial exam, sinuses nontender and face symmetric NOSE: external nose normal, nares normal, no nasal polyps, nasal mucous membranes and turbinates normal and septum deviated EXTERNAL EAR: External ears normal EXTERNAL AUDITORY CANAL: EAC's normal TYMPANIC MEMBRANE: TM's normal bilaterally HEARING: Normal to whisper AU ORAL CAVITY: Oral and palatal mucosa normal, lip normal, tongue normal, salivary glands and ducts normal and moist mucous membranes OROPHARYNX: Oropharynx normal, uvula midline Eye: PERRL, EOMs intact bilaterally, conjunctivae normal, no scleral icterus and normal visual storey by confrontation. Alignment normal, periorbital findings normal, eyelids normal, conjunctivae normal, sclerae normal, corneas normal. Neck/C-Spine: Full ROM, no lymphadenopathy in levels I-IV, supple, no meningeal signs, no JVD and thyroid normal GENERAL: THYROID: Thyroid normal Lymph: LYMPHATIC: No lymphedema noted Chest: Inspection of chest normal Resp: Normal respiratory effort, no retractions, no use of accessory muscles and clear to auscultation bilaterally AUSCULTATION: Clear to auscultation bilaterally Cardio: No JVD, RRR Neuro: Oriented x3 and CN's II-XII intact bilaterally except as above SENSORIUM/ORIENTATION: Oriented to person, place and time. Psych: Mental status grossly normal, thought process normal, cooperative, speech normal and denies suicidal ideation APPEARANCE: Grossly normal and Yes well kempt ATTITUDE: Calm and engaged SPEECH: Normal speech THOUGHT PROCESS: Normal thought process JUDGEMENT: Judgment good Skin: No rashes or lesions noted except as above, no wounds, skin turgor normal, no jaundice, no petechiae and no mottling. TRAUMA: No lacerations or abrasions HAIR: Normal NAILS: Normal Data : 05/19/19 03:35 05/19/19 03:35 Micro: Microbiology 05/15/19 21:53 Urine Culture - Final Urine,Voided A&P Assessment and plan (1) Dysphagia: Status: Acute Qualifiers: Dysphagia type: unspecified Qualified Code(s): R13.10 - Dysphagia, unspecified Code(s): R13.10 - Dysphagia, unspecified (2) Intractable nausea and vomiting: Status: Acute Code(s): R11.2 - Nausea with vomiting, unspecified Additional A&P Information He has had no significant change in his symptoms and therefore we will continue with the planned surgical procedure. Attestations Medical Necessity Statement*: Cannot swallow Coding Level of Care Code Acute Small Kick Press Operator for g Fwd Diagnoses Dysphagia R13.10 Dysphagia type: unspecified Intractable nausea and vomiting R11.2
--- NOTE | 2019-05-19 09:08 | PM.HPUD ---
H&P update H&P Update: DATE OF SURGERY/PROCEDURE: 05/19/19 DATE H&P PERFORMED: 05/16/19 H&P UPDATE INFORMATION: No changes to prior documentation PREOP DIAGNOSIS: Dysphasia PLANNED PROCEDURE: Operation Date: 05/19/19 12:00 Proposed Procedures p EGD with possible dilation(Not Applicable) - Sridhar Tian MD Full H&P Medications/Allergies: Current Medications: Current Medications Generic Name Dose Route Start Last Admin Trade Name Freq PRN Reason Stop Dose Admin Dexamethasone 4 mg 05/18/19 14:00 05/19/19 08:47 Decadron IVP 4 mg Q6H BONITA Administration Enoxaparin Sodium 30 mg 05/16/19 19:00 05/18/19 18:43 Lovenox SUBCUT 30 mg Q24H BONITA Administration Sodium Chloride 1,000 mls @ 100 m ls/hr 05/15/19 18:56 05/19/19 03:24 Sodium Chloride 0.9% IV 100 mls/hr .Q10H BONITA Administration Famotidine 20 mg/ 1,007 mls @ 83 ml s/hr 05/18/19 08:30 05/18/19 20:55 Multivitamins 5 ml / Amino IV 83 mls/hr Acids/Electrolytes .Q12H8M BONITA Administration Lorazepam 0.5 mg 05/18/19 15:04 05/19/19 00:38 Ativan IVP 0.5 mg Q6H PRN Administration ANXIETY Metoclopramide HCl 5 mg 05/16/19 21:00 05/19/19 06:09 Reglan PO Not Given AC&BEDTIME BONITA Morphine Sulfate 2 mg 05/18/19 13:57 05/19/19 08:47 Morphine IVP 2 mg Q4H PRN Administration SEVERE PAIN Multivitamins Ther apeutic 1 tab 05/16/19 09:00 05/18/19 11:15 Multivitamin Tab PO Not Given DAILY BONITA Ondansetron HCl 8 mg 05/15/19 18:56 05/19/19 08:56 Zofran IVP 8 mg Q8H PRN Administration vomiting, or N/V if npo Vitamin D 1,000 unit 05/15/19 19:30 05/18/19 11:14 Vitamin D3 PO Not Given DAILY BONITA Perinent History: Medical/Surgical History: Medical History (Updated 05/18/19 @ 17:29 by Louise Crenshaw MD) ASHD (arteriosclerotic heart disease) (Acute) No ASA or Plavix due to stomach ulcers. Pt had subdural hematoma Bruxism (Acute) Monica syndrome (Acute) H. 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
--- NOTE | 2019-05-19 09:26 | PM.PN ---
Subjective Subjective: Interval history: Plan for endoscopic evaluation today. Received 2 doses of IV morphine and 1 dose of Ativan IV overnight. Patient seen and examined later in the day, resting in bed, seems to be in better spirits today, reports that nausea has improved some. Would like to try some liquids specifically tea. Does have some residual soreness in his throat so will order some Chloraseptic spray. Is requesting to have morphine and Zofran scheduled around the same time as he seems to tolerate this better. Medications: Reviewed: Yes Medication Review Details: Current Medications Generic Name Dose Route Start Last Admin Trade Name Freq PRN Reason Stop Dose Admin Dexamethasone 4 mg 05/18/19 14:00 05/19/19 08:47 Decadron IVP 4 mg Q6H BONITA Administration Enoxaparin Sodium 30 mg 05/16/19 19:00 05/18/19 18:43 Lovenox SUBCUT 30 mg Q24H BONITA Administration Sodium Chloride 1,000 mls @ 100 m ls/hr 05/15/19 18:56 05/19/19 03:24 Sodium Chloride 0.9% IV 100 mls/hr .Q10H BONITA Administration Famotidine 20 mg/ 1,007 mls @ 83 ml s/hr 05/18/19 08:30 05/19/19 09:19 Multivitamins 5 ml / Amino IV 83 mls/hr Acids/Electrolytes .Q12H8M BONITA Administration Lorazepam 0.5 mg 05/18/19 15:04 05/19/19 00:38 Ativan IVP 0.5 mg Q6H PRN Administration ANXIETY Metoclopramide HCl 5 mg 05/16/19 21:00 05/19/19 06:09 Reglan PO Not Given AC&BEDTIME BONITA Morphine Sulfate 2 mg 05/18/19 13:57 05/19/19 08:47 Morphine IVP 2 mg Q4H PRN Administration SEVERE PAIN Multivitamins Ther apeutic 1 tab 05/16/19 09:00 05/18/19 11:15 Multivitamin Tab PO Not Given DAILY BONITA Ondansetron HCl 8 mg 05/15/19 18:56 05/19/19 08:56 Zofran IVP 8 mg Q8H PRN Administration vomiting, or N/V if npo Vitamin D 1,000 unit 05/15/19 19:30 05/18/19 11:14 Vitamin D3 PO Not Given DAILY BONITA Vitals/I&O/Wt Last Vital Signs Temp 98.1 F 05/19/19 08:00 Pulse 85 05/19/19 08:00 Resp 16 05/19/19 08:47 BP 151/78 05/19/19 08:00 Pulse Ox 99 05/19/19 08:00 05/18/19 05/19/19 05/19/19 22:59 06:59 14:59 Intake Total 2023.3 / 2023.3 1000 / 3024.3 1007 / 1007 Output Total 150 / 150 520 / 670 Balance 1874.3 / 1874.3 480 / 2354.3 1006 / 1006 Weight last 48 hrs Weight 77.819 kg Weight 73.51 kg Weight 73.51 kg Physical Exam Const: COMMON NORMALS: no apparent distress and oriented x3 GENERAL APPEARANCE: cooperative and comfortable ORIENTATION/CONSCIOUSNESS: Yes awake HENMT: COMMON NORMALS: normocephalic, head/scalp atraumatic and hearing grossly normal bilaterally HEAD & SCALP: normocephalic and atraumatic MOUTH: moist mucous membranes abnormal Details: cracked TEETH & GINGIVA: Yes poor dentition Eye: COMMON NORMALS: PERRL, EOMs intact bilaterally and conjunctivae normal CONJUNCTIVA: Yes conjunctivae normal PUPIL: Yes PERRL Neck/C-Spine: COMMON NORMALS: full ROM GENERAL: Yes normal visual inspection and Yes trachea midline Resp: COMMON NORMALS: normal respiratory effort, no retractions, no use of accessory muscles and clear to auscultation bilaterally EFFORT & INSPECTION: Yes able to speak in complete sentences, Yes symmetric chest movement and No tachypneic AUSCULTATION: clear to auscultation bilaterally Cardio: COMMON NORMALS: regular rate, regular rhythm, S1 normal heart sound, S2 normal heart sound and no murmurs RATE: regular rate RHYTHM: regular rhythm HEART SOUNDS: S1 normal and S2 normal GI: COMMON NORMALS: soft to palpation and non-tender INSPECTION: Yes normal to inspection and No abdominal distension PALPATION: Yes soft Extremity: COMMON NORMALS: normal to inspection, full ROM and no clubbing, cyanosis or edema; negative for no pedal edema Neuro: COMMON NORMALS: oriented x3, moves all extremities, no focal motor deficits and no sensory deficits noted Psych: COMMON NORMALS: mental status grossly normal, thought process normal, cooperative, affect normal and speech normal SPEECH: Yes normal speech THOUGHT PROCESS: normal thought process Skin: COMMON NORMALS: no rashes or lesions noted, no jaundice, no petechiae and no mottling GENERAL SKIN EXAM: no rashes or lesions noted Data : 05/19/19 03:35 05/19/19 03:35 Micro: Microbiology 05/15/19 21:53 Urine Culture - Final Urine,Voided A&P Assessment and plan (1) Intractable nausea and vomiting: -Patient continues to have intractable nausea and vomiting which seems to have worsened today -Discontinued fentanyl patch in case this is contributing to his symptoms per his request -Very reluctant to take any medications by mouth so we will continue IV Zofran, dexamethasone for antiemetic effect -Continue IV fluid hydration -EGD today; reviewed results with Dr. Tian. Did have dilation done going into the pylorus. No overt abnormalities noted during procedure. -keep NPO; patient would like to try clear liquid diet this evening. Status: Acute Code(s): R11.2 - Nausea with vomiting, unspecified (2) Dysphagia: -has known dysphagia, has had esophageal dilation done by ENT Dr. Tian with improved ability to swallow. Case discussed with Dr. Tian, offered endoscopic evaluation which patient is agreeable to; scheduled for today -diagnosed with eosinophilic esophagitis -modified barium swallow done though patient unable to complete -aspiration precautions -noted possibility of gastroparesis on gastrograffin study indicating delayed emptying and gastric retention; also showed moderate esophageal dysmotility. 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 Shea and Dr. Rapp -pain control, antiemetics as needed -fall precautions -per Onc documentation, patient had declined hospice -per discussion with Dr. Shea, poor prognosis overall Status: Acute Code(s): C79.51 - Secondary malignant neoplasm of bone; C22.0 - Liver cell carcinoma (4) Acute dehydration: -secondary to poor oral intake and intractable nausea/vomiting -on IVF hydration, encourage oral hydration Status: Acute Code(s): E86.0 - Dehydration (5) Acute kidney failure: -has significantly elevated Cr; continues to improve -previously normal Cr -continue to monitor renal function -renal impairment is likely secondary to dehydration -on IVF hydration -avoid nephrotoxins, renally dose meds -noted CT A/P Status: Acute Qualifiers: Acute renal failure type: unspecified Qualified Code(s): N17.9 - Acute kidney failure, unspecified Code(s): N17.9 - Acute kidney failure, unspecified Additional A&P Information -Chronic pain, on chronic opiates -hx of CAD s/p angioplasty to LAD and OM1; f/u with Dr. Connolly. Echo (2018): EF=50%, stress testing in 01/2018 showing myocardial scarring in LAD area with small area of antony-infarction ischemia. Recently resumed plavix. 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 Off abx -Hypocalcemia; replace as needed; corrected Ca-7.0. Added calcium to peripheral nutrition -on PPN -GI ppx with PPI -DVT ppx with Lovenox -Dispo: home -Code status: FULL code Attestations Medical Necessity Statement*: Patient requires hospitalization for continued management of dysphagia, intractable nausea/vomiting, pending endoscopic evaluation, on peripheral nutrition. Time Spent in Patient Care: Greater than 35 minutes (>than 50% of time spent in counselling and/or direct pt care on unit). 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
--- NOTE | 2019-05-19 11:36 | ANES.PREANE2 ---
Pre-Anesthetic Assessment Pre-Anesthetic Assessment: Height/Weight: Height 1.75 m Weight 74.843 kg Temp Pulse Resp BP Pulse Ox 98.1 F 80 18 173/74 99 05/19/19 11:18 05/19/19 11:18 05/19/19 11:18 05/19/19 11:18 05/19/19 11:18 Preop Diagnosis: Dysphasia Proposed Procedure: Operation Date: 05/19/19 12:00 Proposed Procedures p EGD with possible dilation(Not Applicable) - Sridhar Tian MD Familial anesthetic complications: PONV Was Beta Sara taken within 24 hours: N/A Last intake: NPO > 8 hrs Social: Social History: No alcohol and No tobacco Exam: Pre-Anes Outpt Exam: alert, oriented x 3, clear to auscultation bilaterally and regular rate & rhythm Airway: Cervical ROM: WNL MP: 1 Additional comments: Missing, titanium inserts Pulmonary: Pulmonary: None reported CV/HEM: CV/HEM: CAD and HI Comments: balloon angioplasty; was on plavix, ef 50% : : None reported Hepatic: Comments: Stage IV liver metastasis (caricnoma) GI: Comments: ON TPN, currently nausetead - will require RSI. Last vomited > 2 hrs ago Metabolic: Metabolic: DM Musc/skel: Musc/skel: None reported Neuropsych: Neuropsych: None reported Anesthetic Plan: ASA status: 3 Anesthesia: General Meds/Allergies Current Medications: Current Medications Generic Name Dose Route Start Last Admin Trade Name Freq PRN Reason Stop Dose Admin Dexamethasone 4 mg 05/18/19 14:00 05/19/19 08:47 Decadron IVP 4 mg Q6H BONITA Administration Enoxaparin Sodium 30 mg 05/16/19 19:00 05/18/19 18:43 Lovenox SUBCUT 30 mg Q24H BONITA Administration Sodium Chloride 1,000 mls @ 100 m ls/hr 05/15/19 18:56 05/19/19 03:24 Sodium Chloride 0.9% IV 100 mls/hr .Q10H BONITA Administration Famotidine 20 mg/ 1,007 mls @ 83 ml s/hr 05/18/19 08:30 05/19/19 09:19 Multivitamins 5 ml / Amino IV 83 mls/hr Acids/Electrolytes .Q12H8M BONITA Administration Lorazepam 0.5 mg 02/05/20 15:04 05/19/19 00:38 Ativan IVP 0.5 mg Q6H PRN Administration ANXIETY Metoclopramide HCl 5 mg 05/16/19 21:00 05/19/19 11:30 Reglan PO Not Given AC&BEDTIME BONITA Morphine Sulfate 2 mg 05/18/19 13:57 05/19/19 08:47 Morphine IVP 2 mg Q4H PRN Administration SEVERE PAIN Multivitamins Ther apeutic 1 tab 05/16/19 09:00 05/19/19 10:20 Multivitamin Tab PO Not Given DAILY BONITA Ondansetron HCl 8 mg 05/15/19 18:56 05/19/19 08:56 Zofran IVP 8 mg Q8H PRN Administration vomiting, or N/V if npo Vitamin D 1,000 unit 05/15/19 19:30 05/19/19 10:20 Vitamin D3 PO Not Given DAILY BONITA Additional Medication Information: Current Medications Generic Name Dose Route Start Last Admin Trade Name Freq PRN Reason Stop Dose Admin Dexamethasone 4 mg 05/18/19 14:00 05/19/19 08:47 Decadron IVP 4 mg Q6H BONITA Administration Enoxaparin Sodium 30 mg 05/16/19 19:00 05/18/19 18:43 Lovenox SUBCUT 30 mg Q24H BONITA Administration Sodium Chloride 1,000 mls @ 100 m ls/hr 05/15/19 18:56 05/19/19 03:24 Sodium Chloride 0.9% IV 100 mls/hr .Q10H BONITA Administration Famotidine 20 mg/ 1,007 mls @ 83 ml s/hr 05/18/19 08:30 05/19/19 09:19 Multivitamins 5 ml / Amino IV 83 mls/hr Acids/Electrolytes .Q12H8M BONITA Administration Lorazepam 0.5 mg 05/18/19 15:04 05/19/19 00:38 Ativan IVP 0.5 mg Q6H PRN Administration ANXIETY Metoclopramide HCl 5 mg 05/16/19 21:00 05/19/19 06:09 Reglan PO Not Given AC&BEDTIME BONITA Morphine Sulfate 2 mg 05/18/19 13:57 05/19/19 08:47 Morphine IVP 2 mg Q4H PRN Administration SEVERE PAIN Multivitamins Ther apeutic 1 tab 05/16/19 09:00 05/18/19 11:15 Multivitamin Tab PO Not Given DAILY BONITA Ondansetron HCl 8 mg 05/15/19 18:56 05/19/19 08:56 Zofran IVP 8 mg Q8H PRN Administration vomiting, or N/V if npo Vitamin D 1,000 unit 05/15/19 19:30 05/18/19 11:14 Vitamin D3 PO Not Given DAILY BONITA PFSH Anesthesia PFSH: Medical History ASHD (arteriosclerotic heart disease) (Acute) No ASA or Plavix due to stomach ulcers. Pt had subdural hematoma Bruxism (Acute) Monica syndrome (Acute) H. 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 (Acute) Hyperlipidemia (Acute) Taken off the meds by Dr Shea Hypertension (Acute) taken off the BP meds by Dr Shea Low back pain (Acute) Neck pain (Acute) Obstructive sleep apnea (Acute) Pericardial effusion (Acute) Spondylisthesis (Acute) Ulnar neuropathy (Acute) Surgical History History of carpal tunnel surgery (Acute) Family History Other CAD (coronary artery disease) Diabetes Hypertension Stroke Social History Smoking and tobacco status: former smoker Alcohol intake: former Substance/Drug Use: never Data Anesthesia CBC & Chem 7: 05/19/19 03:35 05/19/19 03:35 Other Labs: Laboratory Results - last 48 hr 05/17/19 05/17/19 05/18/19 11:19 16:14 06:50 WBC 8.3 RBC 3.21 L Hgb 9.3 L Hct 30.5 L MCV 95.0 H MCH 29.0 MCHC 30.5 RDW 15.4 H Plt Count 282 MPV 9.2 Neut % (Auto) 86.8 Lymph % (Auto) 3.6 [place] % (Auto) 5.8 Eos % (Auto) 2.3 Baso % (Auto) 1.0 Neut # (Auto) 7.2 Lymph # (Auto) 0.3 L [place] # (Auto) 0.5 Eos # (Auto) 0.2 Baso # (Auto) 0.1 Nucleated RBC % (auto) 0 Nucleated RBCs # 0.0 Sodium Potassium Chloride Carbon Dioxide Anion Gap BUN Creatinine Glucose POC Glucose 113 119 Calcium Phosphorus Magnesium Total Bilirubin AST ALT Alkaline Phosphatase Total Protein Albumin Globulin 05/18/19 05/19/19 05/19/19 06:50 03:35 03:35 WBC 5.5 RBC 3.14 L Hgb 9.2 L Hct 28.6 L MCV 91.1 MCH 29.3 MCHC 32.2 D RDW 15.1 Plt Count 284 MPV 9.8 Neut % (Auto) 91.7 Lymph % (Auto) 4.7 [place] % (Auto) 2.7 Eos % (Auto) 0.0 Baso % (Auto) 0.4 Neut # (Auto) 5.0 Lymph # (Auto) 0.3 L [place] # (Auto) 0.2 Eos # (Auto) 0.0 Baso # (Auto) 0.0 Nucleated RBC % (auto) 0 Nucleated RBCs # 0.0 Sodium 140 135 L Potassium 4.1 4.4 Chloride 112 H 107 Carbon Dioxide 15 L 16 L Anion Gap 17.1 16.4 BUN 36 H 39 H Creatinine 4.1 H 3.4 H Glucose 134 H 208 H POC Glucose Calcium 6.1 L 6.0 L Phosphorus 3.6 Magnesium 1.6 L Total Bilirubin 0.3 0.3 AST 22 26 ALT 18 20 Alkaline Phosphatase 206 H 202 H Total Protein 6.0 L 5.6 L Albumin 2.9 L 2.8 L Globulin 3.1 2.8 Micro: Microbiology 05/15/19 21:53 Urine Culture - Final Urine,Voided Cardiac Studies: No Data to Display
--- NOTE | 2019-05-19 11:44 | PM.OP ---
Operative Report Date of procedure: May 19, 2019 Pre-op Diagnosis: Dysphasia Post-op diagnosis: same Post-op Findings: Minimum stricture upper esophagus Procedure Done: EGD with dilation of esophagus to a 58 Czech Implants: None Pathology: none sent Surgeon: Sridhar Tian Anesthesia: General Complications: none Condition: stable Disposition: floor Brief History: Mr. Beltrán is a 69-year-old male who is well-known to me. He has end-stage carcinoma and presented to the hospital with dysphasia. He has been unable to swallow anything. Procedure: The patient was taken to the operating room and under satisfactory general endotracheal anesthesia the esophagus scope was introduced into the post cricoid area. A small stricture was present however the scope passed fairly easily into the cervical esophagus the remainder of the esophagus and stomach were examined no evidence of erosion into the esophagus from the patient's tumor was noted the remainder of the esophageal exam was unchanged from previous. I was unable to examine the duodenum as the scope could not be passed through the pylorus. The scope was removed and the patient was dilated to 58 Czech. A second look with the endoscope was performed no perforation was noted. The patient tolerated the procedure well was allowed awaken and he was taken back to the floor in satisfactory and stable condition.
--- NOTE | 2019-05-19 11:50 | SUR.PREOP ---
hearing aids bilaterally taken out and placed into denture cup and both shirts,shoes,necklace taken off and gown and socks placed on pt
[2019-05-19] MEDS: sodium chloride 0.9% 1,000 ML 30 ML IV (12:03)
[2019-05-19] MEDS: ondansetron 2 mg/ML SDV 2 mL 4 MG IVP ×2 (15:51→20:06)
[2019-05-19] MEDS: enoxaparin 30 mg/0.3 mL Syringe SUBCUT (18:01)
[2019-05-19] MEDS: OLANZapine ODT 5 MG TABLET PO (21:37)
[2019-05-20] VITALS (11 sets, daily range): BP systolic 136–158; BP diastolic 72–84; PULSE 71–81; RESP 12–20; TEMP 36.6–37; O2SAT 98–100; BMI 24.3
[2019-05-20] MEDS: dexamethasone 4 mg/mL INJ IVP ×4 (01:41→20:52)
[2019-05-20] MEDS: ondansetron 2 mg/ML SDV 2 mL 4 MG IVP ×5 (03:05→22:21)
[2019-05-20] MEDS: morphine 4 mg/mL SDV 1 mL 2 MG IVP ×5 (03:06→22:23)
[2019-05-20 07:40] LABS: Basophils % 0.1 %; Hematocrit 32.8 % (42.0-52.0); Hemoglobin 10.6 g/dL (11.7-16.6); Lymphocytes # 0.3 10^3/uL (0.8-4.8); Mean Corpuscular HGB Conc 32.3 g/dL (30.0-36.0); Mean Corpuscular Hemoglobin 30.3 pg (28.0-34.0); Mean Corpuscular Volume 93.7 fL (80-94); Mean Platelet Volume 10.5 fL (7.4-10.4); Monocytes # 0.2 10^3/uL (0.2-0.9); Monocytes % 2.8 %; Neutrophils # 7.8 10^3/uL (1.8-7.7); Neutrophils % 92.4 %; Nucleated Red Blood Cells % 0 %; Platelet Count 278 10^3/cmm (130-400); Red Cell Distribution Width 15.4 % (12.1-15.1); White Blood Count 8.5 10^3/uL (4.0-10.0)
[2019-05-20 07:42] LABS: Alanine Aminotransferase 56 U/L (0-41); Albumin Level 3.1 g/dL (3.5-5.2); Alkaline Phosphatase 246 IU/L (40-130); Aspartate Amino Transferase 79 U/L (0-40); Blood Urea Nitrogen 44 mg/dL (8-23); Carbon Dioxide 14 mmol/L (22-29); Chloride 106 mmol/L (98-107); Globulin 2.1 g/dL (1.3-4.6); Glucose 194 mg/dL (65-115); Sodium 135 mmol/L (136-145); Total Bilirubin 0.4 mg/dL (0.15-1.2); Total Protein 5.2 g/dL (6.6-8.7)
--- NOTE | 2019-05-20 08:45 | PM.PN ---
Subjective Subjective: Interval history: Victoriano is doing well today. He is eating Jell-O. He has a mild amount of discomfort in the throat but he is otherwise extraordinarily happy. Vitals/I&O/Wt Last Vital Signs Temp 97.9 F 05/20/19 08:25 Pulse 78 05/20/19 08:25 Resp 16 05/20/19 08:25 BP 158/84 05/20/19 08:25 Pulse Ox 100 05/20/19 08:25 05/19/19 05/20/19 05/20/19 22:59 06:59 14:59 Intake Total 1247 / 3054 360 / 3414 476 / 476 Balance 1247 / 3053 360 / 3413 476 / 476 Weight last 48 hrs Weight 165 lb Weight 171 lb 9 oz Weight 162 lb 1 oz Physical Exam Narrative: EXAM NARRATIVE: Const: [The patient is in no apparent distress, average body habitus, oriented x3, no limitations and healthy appearing] GENERAL APPEARANCE:[cooperative, comfortable, well kempt and well developed] ORIENTATION/CONSCIOUSNESS: [Awake, oriented to person, oriented to place and oriented to time] HENMT: [normocephalic, head/scalp atraumatic, head and scalp normal to inspection, ] FACE & SINUS: [normal facial exam, sinuses nontender and face symmetric] NOSE: external nose normal, nares normal, no nasal polyps, nasal mucous membranes and turbinates normal and septum deviated EXTERNAL EAR: [external ears normal] EXTERNAL AUDITORY CANAL: [EAC's normal] TYMPANIC MEMBRANE: [TM's normal bilaterally] ORAL CAVITY: [oral and palatal mucosa normal, lip normal, tongue normal, salivary glands and ducts normal and moist mucous membranes abnormal] OROPHARYNX: [oropharynx normal, uvula midline] Chest: [Inspection of chest normal] Resp: [Normal respiratory effort, no retractions, no use of accessory muscles and clear to auscultation bilaterally] AUSCULTATION: [clear to auscultation bilaterally] Cardio: [no JVD, RRR] Neuro: [Oriented x3 and CN's II-XII intact bilaterally except as above] SENSORIUM/ORIENTATION: [Oriented to person, place and time.] Psych: [Mental status grossly normal, thought process normal, cooperative, speech normal and denies suicidal ideation] APPEARANCE: [ grossly normal and Yes well kempt] ATTITUDE: [calm] and [engaged ] SPEECH:[normal speech] THOUGHT PROCESS: [normal thought process] JUDGEMENT: [judgment good] Skin: No rashes or lesions noted except as above, no wounds, skin turgor normal, no jaundice, no petechiae and no mottling. TRAUMA: [no lacerations or abrasions] HAIR: [normal] NAILS: [normal] Data : 05/20/19 06:20 05/20/19 06:20 A&P Assessment and plan (1) Dysphagia: He is doing very well today. He is extremely motivated to avoid gastrostomy tube or parenteral nutrition of any kind. I will see him regularly in the clinic. We had a long discussion about this. He lives in [place] [place] [facility] [facility] which is a bit of a long trip but he is willing to do that. I have told him that I will be out of town but if he is still in the hospital on Thursday I will come by to visit. I will have him arrange for follow-up in the clinic once he knows when he is going to be discharged. Status: Acute Qualifiers: Dysphagia type: unspecified Qualified Code(s): R13.10 - Dysphagia, unspecified Code(s): R13.10 - Dysphagia, unspecified Attestations Medical Necessity Statement*: princess; p Coding Level of Care Code Acute Data Analysis Manager for [facility] Fw Diagnoses Dysphagia R13.10 Dysphagia type: unspecified
[2019-05-20 11:05] LABS: Glucose Point of Care 183 mg/dL (70-110)
[2019-05-20] MEDS: sodium chloride 0.9% 1,000 ML 100 ML IV (11:18)
--- NOTE | 2019-05-20 11:53 | PC.SOCIAL ---
IMM Updated Updated pt on Pg2 IMM. No questions voiced. Provided pt a copy & left on pt's bedside table. Signed, dated, & timed original in chart.
--- NOTE | 2019-05-20 15:59 | P.PN_ITS ---
Subjective Subjective: Interval history: Seems to be tolerating CLD. AM labs noted. Patient seen and examined, is in very good spirits today, reports being hungry and would like to try something more solid by mouth, has been tolerating clear liquid diet very well. States that nausea has completely resolved. Will decrease rate of peripheral nutrition as well as IV fluids. Medications: Reviewed: Yes Medication Review Details: Current Medications Generic Name Dose Route Start Last Admin Trade Name Freq PRN Reason Stop Dose Admin Dexamethasone 4 mg 05/18/19 14:00 05/20/19 14:08 Decadron IVP 4 mg Q6H BONITA Administration Enoxaparin Sodium 30 mg 05/16/19 19:00 05/19/19 18:01 Lovenox SUBCUT 30 mg Q24H BONITA Administration Sodium Chloride 1,000 mls @ 100 m ls/hr 05/15/19 18:56 05/20/19 11:18 Sodium Chloride 0.9% IV 100 mls/hr .Q10H BONITA Administration Famotidine 20 mg/ 1,007 mls @ 83 ml s/hr 05/18/19 08:30 05/20/19 11:09 Multivitamins 5 ml / Amino IV 83 mls/hr Acids/Electrolytes .Q12H8M BONITA Administration Lorazepam 0.5 mg 05/18/19 15:04 05/19/19 00:38 Ativan IVP 0.5 mg Q6H PRN Administration ANXIETY Metoclopramide HCl 5 mg 05/16/19 21:00 05/20/19 11:57 Reglan PO Not Given AC&BEDTIME BONITA Morphine Sulfate 2 mg 05/18/19 13:57 05/20/19 14:05 Morphine IVP 2 mg Q4H PRN Administration SEVERE PAIN Multivitamins Ther apeutic 1 tab 05/16/19 09:00 05/20/19 08:18 Multivitamin Tab PO Not Given DAILY BONITA Non-Formulary Medi cation 24 mcg 05/15/19 18:56 05/20/19 14:09 Lubiprostone PO Not Given BID BONITA Olanzapine 5 mg 05/19/19 21:00 05/19/19 21:37 Zyprexa Zydis PO 5 mg BEDTIME BONITA Administration Ondansetron HCl 4 mg 05/19/19 15:20 05/20/19 14:05 Zofran IVP 4 mg Q4H PRN Administration vomiting, or N/V if npo Vitamin D 1,000 unit 05/15/19 19:30 05/20/19 08:17 Vitamin D3 PO Not Given DAILY BONITA Vitals/I&O/Wt Last Vital Signs Temp 98.0 F 05/20/19 15:51 Pulse 81 05/20/19 15:51 Resp 18 05/20/19 15:51 BP 150/83 05/20/19 15:51 Pulse Ox 98 05/20/19 15:51 05/20/19 05/20/19 05/20/19 06:59 14:59 22:59 Intake Total 360 / 3414 3083 / 3083 Output Total 600 / 600 Balance 360 / 3413 3083 / 3083 -600 / 2483 Weight last 48 hrs Weight 74.843 kg Weight 74.843 kg Weight 77.819 kg Physical Exam Const: COMMON NORMALS: no apparent distress and oriented x3 GENERAL APPEARANCE: cooperative and comfortable ORIENTATION/CONSCIOUSNESS: Yes awake HENMT: COMMON NORMALS: normocephalic, head/scalp atraumatic and hearing grossly normal bilaterally HEAD & SCALP: normocephalic and atraumatic MOUTH: moist mucous membranes abnormal Details: cracked TEETH & GINGIVA: Yes poor dentition Eye: COMMON NORMALS: PERRL, EOMs intact bilaterally and conjunctivae normal CONJUNCTIVA: Yes conjunctivae normal PUPIL: Yes PERRL Neck/C-Spine: COMMON NORMALS: full ROM GENERAL: Yes normal visual inspection and Yes trachea midline Resp: COMMON NORMALS: normal respiratory effort, no retractions, no use of accessory muscles and clear to auscultation bilaterally EFFORT & INSPECTION: Yes able to speak in complete sentences, Yes symmetric chest movement and No tachypneic AUSCULTATION: clear to auscultation bilaterally Cardio: COMMON NORMALS: regular rate, regular rhythm, S1 normal heart sound, S 2 normal heart sound and no murmurs RATE: regular rate RHYTHM: regular rhythm HEART SOUNDS: S1 normal and S2 normal GI: COMMON NORMALS: soft to palpation and non-tender INSPECTION: Yes normal to inspection and No abdominal distension AUSCULTATION: Yes hyperactive bowel sounds PALPATION: Yes soft Extremity: COMMON NORMALS: normal to inspection, full ROM and no clubbing, cyanosis or edema; negative for no pedal edema Neuro: COMMON NORMALS: oriented x3, moves all extremities, no focal motor deficits, no sensory deficits noted and gait normal Psych: COMMON NORMALS: mental status grossly normal, thought process normal, cooperative, affect normal and speech normal SPEECH: Yes normal speech THOUGHT PROCESS: normal thought process Skin: COMMON NORMALS: no rashes or lesions noted, no jaundice, no petechiae and no mottling GENERAL SKIN EXAM: no rashes or lesions noted Data : 05/20/19 06:20 05/20/19 06:20 A&P Assessment and plan (1) Intractable nausea and vomiting: -Patient continues to have intractable nausea and vomiting which seems to have worsened today -Discontinued fentanyl patch in case this is contributing to his symptoms per his request -Very reluctant to take any medications by mouth so we will continue IV Zofran, dexamethasone for antiemetic effect. Added Zyprexa yesterday. Nausea completely resolved today -Continue IV fluid hydration; wean off with improved oral intake -EGD done 05/19; reviewed results with Dr. Tian. Did have dilation done going into the pylorus. No overt abnormalities noted during procedure. -on clear liquid diet; advance to GI soft diet Status: Acute Code(s): R11.2 - Nausea with vomiting, unspecified (2) Dysphagia: -has known dysphagia, has had esophageal dilation done by ENT Dr. Tian with improved ability to swallow. Case discussed with Dr. Tian, offered endoscopic evaluation which patient is agreeable to; scheduled for today -diagnosed with eosinophilic esophagitis -modified barium swallow done though patient unable to complete -aspiration precautions -noted possibility of gastroparesis on gastrograffin study indicating delayed emptying and gastric retention; also showed moderate esophageal dysmotility. Has been reluctant to take reglan -on PPI -continue peripheral nutrition; does not want feeding tube placement at this time. 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 Shea and Dr. Rapp -pain control, antiemetics as needed -fall precautions -per Onc documentation, patient had declined hospice -per discussion with Dr. Shea, poor prognosis overall Status: Acute Code(s): C79.51 - Secondary malignant neoplasm of bone; C22.0 - Liver cell carcinoma (4) Acute dehydration: -secondary to poor oral intake and intractable nausea/vomiting -on IVF hydration, encourage oral hydration Status: Acute Code(s): E86.0 - Dehydration (5) Acute kidney failure: -has significantly elevated Cr; continues to improve -previously normal Cr -continue to monitor renal function -renal impairment is likely secondary to dehydration -on IVF hydration -avoid nephrotoxins, renally dose meds -noted CT A/P Status: Acute Qualifiers: Acute renal failure type: unspecified Qualified Code(s): N17.9 - Acute kidney failure, unspecified Code(s): N17.9 - Acute kidney failure, unspecified Additional A&P Information -Chronic pain, on chronic opiates -hx of CAD s/p angioplasty to LAD and OM1; f/u with Dr. Connolly. Echo (2018): EF=50%, stress testing in 01/2018 showing myocardial scarring in LAD area with small area of antony-infarction ischemia. Recently resumed plavix. 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 Off abx -Hypocalcemia; replace as needed; corrected Ca-6.7. Added calcium to peripheral nutrition -on PPN -GI ppx with PPI -DVT ppx with Lovenox -Dispo: home, likely with home health -Code status: FULL code Attestations Medical Necessity Statement*: Patient requires hospitalization for continued nutrition pending improved oral intake and tolerance. Time Spent in Patient Care: Greater than 35 minutes (>than 50% of time spent in counselling and/or direct pt care on unit) . 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
[2019-05-20] MEDS: enoxaparin 30 mg/0.3 mL Syringe SUBCUT (18:41)
[2019-05-20] MEDS: OLANZapine ODT 5 MG TABLET PO (21:39)
[2019-05-20] MEDS: metoclopramide oral liquid 5 mg/5 mL (ml) PO (21:39)
[2019-05-21] VITALS: BP 153/52; PULSE 81; RESP 18; TEMP 36.4; O2SAT 99
[2019-05-21] MEDS: sodium chloride 0.9% 1,000 ML 100 ML IV (00:30)
[2019-05-21] MEDS: dexamethasone 4 mg/mL INJ IVP ×2 (02:29→08:52)
[2019-05-21 04:00] VITALS: BP 157/82; PULSE 75; RESP 18; TEMP 36.7; O2SAT 99
[2019-05-21 05:18] VITALS: RESP 18
[2019-05-21] MEDS: morphine 4 mg/mL SDV 1 mL 2 MG IVP ×2 (05:18→09:26)
[2019-05-21] MEDS: ondansetron 2 mg/ML SDV 2 mL 4 MG IVP ×2 (05:18→09:26)
[2019-05-21 05:48] LABS: Alanine Aminotransferase 114 U/L (0-41); Albumin Level 3.2 g/dL (3.5-5.2); Alkaline Phosphatase 280 IU/L (40-130); Anion Gap 18.6 (5-19); Aspartate Amino Transferase 94 U/L (0-40); Blood Urea Nitrogen 52 mg/dL (8-23); Calcium 6.6 mg/dL (8.5-10.5); Carbon Dioxide 16 mmol/L (22-29); Chloride 108 mmol/L (98-107); Globulin 2.8 g/dL (1.3-4.6); Glucose 157 mg/dL (65-115); Potassium 4.6 mmol/L (3.5-5.1); Sodium 138 mmol/L (136-145); Total Bilirubin 0.4 mg/dL (0.15-1.2)
[2019-05-21 07:11] VITALS: BP 158/78; PULSE 79; RESP 18; TEMP 36.6; O2SAT 98
--- NOTE | 2019-05-21 09:10 | PM.PN ---
Subjective Subjective: Interval history: AM labs noted, tolerating GI soft diet very well, will d/c IVF and peripheral nutrition. Patient seen and examined, reports feeling well, no nausea, would like to go home today. Medications: Reviewed: Yes Medication Review Details: Current Medications Generic Name Dose Route Start Last Admin Trade Name Freq PRN Reason Stop Dose Admin Dexamethasone 4 mg 05/18/19 14:00 05/21/19 08:52 Decadron IVP 4 mg Q6H BONITA Administration Enoxaparin Sodium 30 mg 05/16/19 19:00 05/20/19 18:41 Lovenox SUBCUT 30 mg Q24H BONITA Administration Lorazepam 0.5 mg 05/18/19 15:04 05/19/19 00:38 Ativan IVP 0.5 mg Q6H PRN Administration ANXIETY Metoclopramide HCl 5 mg 05/16/19 21:00 05/21/19 06:59 Reglan PO Not Given AC&BEDTIME BONITA Morphine Sulfate 2 mg 05/18/19 13:57 05/21/19 05:18 Morphine IVP 2 mg Q4H PRN Administration SEVERE PAIN Multivitamins Ther apeutic 1 tab 05/16/19 09:00 05/21/19 08:50 Multivitamin Tab PO Not Given DAILY BONITA Non-Formulary Medi cation 24 mcg 05/15/19 18:56 05/21/19 08:50 Lubiprostone PO Not Given BID BONITA Olanzapine 5 mg 05/19/19 21:00 05/20/19 21:39 Zyprexa Zydis PO 5 mg BEDTIME BONITA Administration Ondansetron HCl 4 mg 05/19/19 15:20 05/21/19 05:18 Zofran IVP 4 mg Q4H PRN Administration vomiting, or N/V if npo Vitamin D 1,000 unit 05/15/19 19:30 05/21/19 08:50 Vitamin D3 PO Not Given DAILY BONITA Vitals/I&O/Wt Last Vital Signs Temp 97.9 F 05/21/19 07:11 Pulse 79 05/21/19 07:11 Resp 18 05/21/19 07:11 BP 158/78 05/21/19 07:11 Pulse Ox 98 05/21/19 07:11 05/20/19 05/21/19 05/21/19 22:59 06:59 14:59 Intake Total 1480 / 4563 Output Total 600 / 600 650 / 1250 Balance 880 / 3963 -650 / 3313 Weight last 48 hrs Weight 74.843 kg Weight 74.843 kg Physical Exam Const: COMMON NORMALS: no apparent distress and oriented x3 GENERAL APPEARANCE: cooperative and comfortable ORIENTATION/CONSCIOUSNESS: Yes awake HENMT: COMMON NORMALS: normocephalic, head/scalp atraumatic and hearing grossly normal bilaterally HEAD & SCALP: normocephalic and atraumatic MOUTH: moist mucous membranes abnormal Details: cracked TEETH & GINGIVA: Yes poor dentition Eye: COMMON NORMALS: PERRL, EOMs intact bilaterally and conjunctivae normal CONJUNCTIVA: Yes conjunctivae normal PUPIL: Yes PERRL Neck/C-Spine: COMMON NORMALS: full ROM GENERAL: Yes normal visual inspection and Yes trachea midline Resp: COMMON NORMALS: normal respiratory effort, no retractions, no use of accessory muscles and clear to auscultation bilaterally EFFORT & INSPECTION: Yes able to speak in complete sentences, Yes symmetric chest movement and No tachypneic AUSCULTATION: clear to auscultation bilaterally Cardio: COMMON NORMALS: regular rate, regular rhythm, S1 normal heart sound, S2 normal heart sound and no murmurs RATE: regular rate RHYTHM: regular rhythm HEART SOUNDS: S1 normal and S2 normal GI: COMMON NORMALS: soft to palpation and non-tender INSPECTION: Yes normal to inspection and No abdominal distension AUSCULTATION: Yes hyperactive bowel sounds PALPATION: Yes soft Extremity: COMMON NORMALS: normal to inspection, full ROM and no clubbing, cyanosis or edema; negative for no pedal edema Neuro: COMMON NORMALS: oriented x3, moves all extremities, no focal motor deficits, no sensory deficits noted and gait normal Psych: COMMON NORMALS: mental status grossly normal, thought process normal, cooperative, affect normal and speech normal SPEECH: Yes normal speech THOUGHT PROCESS: normal thought process Skin: COMMON NORMALS: no rashes or lesions noted, no jaundice, no petechiae and no mottling GENERAL SKIN EXAM: no rashes or lesions noted Data : 05/20/19 06:20 05/21/19 05:13 A&P Assessment and plan (1) Intractable nausea and vomiting: -Patient continues to have intractable nausea and vomiting which seems to have worsened today -Discontinued fentanyl patch in case this is contributing to his symptoms per his request -continue antiemetics, will d/c steroids, continue Zofran, Zyprexa. Nausea completely resolved today -d/c IV fluid hydration; improved oral intake -EGD done 05/19; reviewed results with Dr. Tian. Did have dilation done going into the pylorus. No overt abnormalities noted during procedure. -tolerating GI soft diet; d/c peripheral nutrition Status: Acute Code(s): R11.2 - Nausea with vomiting, unspecified (2) Dysphagia: -has known dysphagia, has had esophageal dilation done by ENT Dr. Tian with improved ability to swallow. Case discussed with Dr. Tian, offered endoscopic evaluation which patient is agreeable to; scheduled for today -diagnosed with eosinophilic esophagitis -modified barium swallow done though patient unable to complete -aspiration precautions -noted possibility of gastroparesis on gastrograffin study indicating delayed emptying and gastric retention; also showed moderate esophageal dysmotility. Has been reluctant to take reglan -on PPI -d/c peripheral nutrition; does not want feeding tube placement at this time. 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 Shea and Dr. Rapp -pain control, antiemetics as needed -fall precautions -per Onc documentation, patient had declined hospice -per discussion with Dr. Shea, poor prognosis overall -noted elevated LFTs Status: Acute Code(s): C79.51 - Secondary malignant neoplasm of bone; C22.0 - Liver cell carcinoma (4) Acute dehydration: -secondary to poor oral intake and intractable nausea/vomiting -on IVF hydration, encourage oral hydration Status: Acute Code(s): E86.0 - Dehydration (5) Acute kidney failure: -has significantly elevated Cr; continues to improve -previously normal Cr -continue to monitor renal function -renal impairment is likely secondary to dehydration -on IVF hydration -avoid nephrotoxins, renally dose meds -noted CT A/P Status: Acute Qualifiers: Acute renal failure type: unspecified Qualified Code(s): N17.9 - Acute kidney failure, unspecified Code(s): N17.9 - Acute kidney failure, unspecified Additional A&P Information -Chronic pain, on chronic opiates -hx of CAD s/p angioplasty to LAD and OM1; f/u with Dr. Connolly. Echo (2018): EF=50%, stress testing in 01/2018 showing myocardial scarring in LAD area with small area of antony-infarction ischemia. Recently resumed plavix. 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 Off abx -Hypocalcemia; replace as needed; corrected Ca-7.2. -GI ppx with PPI -DVT ppx with Lovenox -Dispo: home, likely with home health -Code status: FULL code Attestations Medical Necessity Statement*: Discharge home today Time Spent in Patient Care: Greater than 35 minutes (>than 50% of time spent in counselling and/or direct pt care on unit). 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
[2019-05-21 11:12] VITALS: BP 136/74; PULSE 72; RESP 18; TEMP 36.4; O2SAT 100
--- NOTE | 2019-05-21 12:39 | P.DS_ITS ---
Discharge Providers Date of Admission: 05/15/19 15:38 Date of Discharge: Date of Discharge: May 21, 2019 Attending Provider at Admission: Garfield Fletcher MD Attending Provider at Discharge: Louise Crenshaw MD Primary Care Provider: Rich Doe Diagnoses at Discharge Discharge Diagnosis (1) Intractable nausea and vomiting: Status: Acute Problem details: -Patient continues to have intractable nausea and vomiting which seems to have worsened today -Discontinued fentanyl patch in case this is contributing to his symptoms per his request -continue antiemetics, will d/c steroids, continue Zofran, Zyprexa. Nausea completely resolved today -d/c IV fluid hydration; improved oral intake -EGD done 05/19; reviewed results with Dr. Tian. Did have dilation done going into the pylorus. No overt abnormalities noted during procedure. -tolerating GI soft diet; d/c peripheral nutrition (2) Dysphagia: Status: Acute Problem details: -has known dysphagia, has had esophageal dilation done by ENT Dr. Tian with improved ability to swallow. Case discussed with Dr. Tian, offered endoscopic evaluation -diagnosed with eosinophilic esophagitis -modified barium swallow done though patient unable to complete -aspiration precautions -noted possibility of gastroparesis on gastrograffin study indicating delayed emptying and gastric retention; also showed moderate esophageal dysmotility. Has been reluctant to take reglan -on PPI -d/c peripheral nutrition; does not want feeding tube placement at this time. 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 Shea and Dr. Rapp -pain control, antiemetics as needed -fall precautions -per Onc documentation, patient had declined hospice -per discussion with Dr. Shea, poor prognosis overall -noted elevated LFTs (4) Acute dehydration: Status: Acute Problem details: -secondary to poor oral intake and intractable nausea/vomiting -on IVF hydration, encourage oral hydration (5) Acute kidney failure: Status: Acute Problem details: -has significantly elevated Cr; continues to improve -previously normal Cr -continue to monitor renal function -renal impairment is likely secondary to dehydration -on IVF hydration -avoid nephrotoxins, renally dose meds -noted CT A/P Qualifiers: Acute renal failure type: unspecified Qualified Code(s): N17.9 - Acute kidney failure, unspecified Other Information Additional DC diagnoses/information: -Chronic pain, on chronic opiates -hx of CAD s/p angioplasty to LAD and OM1; f/u with Dr. Connolly. Echo (2018): EF=50%, stress testing in 01/2018 showing myocardial scarring in LAD area with small area of antony-infarction ischemia. Recently resumed plavix. 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 Off abx -Hypocalcemia; replace as needed; corrected Ca-7.2. Reason for Visit Reason for Visit: Reason For Visit: N/V/D; LIVER CA Hospital Course Hospital Course: Patient was admitted to the medical surgical floor and started on antiemetics and IV fluid hydration due to evidence of significant renal impairment and dehydration. He continued to have intractable nausea and v omiting with inability to tolerate any oral intake. At that point he was started on peripheral nutrition and continued on IV fluid hydration. We had multiple discussions about appropriate nutrition including feeding tube placement which patient was very reluctant to have. Given patient's recent esophageal dilation, I discussed the case with Dr. Tian from ENT who very graciously did another endoscopic evaluation on the patient. There is no gross evidence of mucosal invasion but he did require some dilation around the pyloric area. Patient has done very well post-procedure to the point where we been able to discontinue peripheral nutrition and nausea has resolved. He has been tolerating oral intake very well over the past 18 to 24 hours. His renal function is slowly recovering and I expect that this will continue with improved oral intake. He has been noted to have some LFT elevation likely secondary to his history of hepatocellular carcinoma. Due to persistent and intractable n ausea and vomiting fentanyl patch was discontinued and patient would like to continue oral oxycodone for pain control at least until he can follow-up with Dr. Shea in the clinic. Discharge Summary: -Patient to follow-up with Dr. Shea as soon as next available appointment -Patient to follow-up with Dr. Tian as soon as next available appointment -Patient to follow-up with his primary care provider within 1 week. He will need continued follow-up on his renal function -Patient advised to seek medical attention immediately should any of his symptoms return Physical Exam Const: COMMON NORMALS: no apparent distress and oriented x3 GENERAL APPEARANCE: cooperative and comfortable ORIENTATION/CONSCIOUSNESS: Yes awake HENMT: COMMON NORMALS: normocephalic, head/scalp atraumatic and hearing grossly normal bilaterally HEAD & SCALP: normocephalic and atraumatic MOUTH: moist mucous membranes abnormal Details: cracked TEETH & GINGIVA: Yes poor dentition Eye: COMMON NORMALS: PERRL, EOMs intact bilaterally and conjunctivae normal CONJUNCTIVA: Yes conjunctivae normal PUPIL: Yes PERRL Neck/C-Spine: COMMON NORMALS: full ROM GENERAL: Yes normal visual inspection and Yes trachea midline Resp: COMMON NORMALS: normal respiratory effort, no retractions, no use of accessory muscles and clear to auscultation bilaterally EFFORT & INSPECTION: Yes able to speak in complete sentences, Yes symmetric chest movement and No tachypneic AUSCULTATION: clear to auscultation bilaterally Cardio: COMMON NORMALS: regular rate, regular rhythm, S1 normal heart sound, S2 normal heart sound and no murmurs RATE: regular rate RHYTHM: regular rhythm HEART SOUNDS: S1 normal and S2 normal GI: COMMON NORMALS: soft to palpation and non-tender INSPECTION: Yes normal to inspection and No abdominal distension AUSCULTATION: Yes hyperactive bowel sounds PALPATION: Yes soft Extremity: COMMON NORMALS: normal to inspection, full ROM and no clubbing, cyanosis or edema; negative for no pedal edema Neuro: COMMON NORMALS: oriented x3, moves all extremities, no focal motor deficits, no sensory deficits noted and gait normal Psych: COMMON NORMALS: mental status grossly normal, thought process normal, cooperative, affect normal and speech normal SPEECH: Yes normal speech THOUGHT PROCESS: normal thought process Skin: COMMON NORMALS: no rashes or lesions noted, no jaundice, no petechiae and no mottling GENERAL SKIN EXAM: no rashes or lesions noted Discharge Data Data Completed and Pending: Completed Studies During Hospitalization Category Date Time Status CT kidney stone 7 4175 Routine Cat Scan 02/02/20 17:47 Completed [place] barium swallow modifd 77300 Rout ine Exams 05/16/19 07:00 Completed Pending at discharge Category Date Time Status ES surgery / GI i mages Routine Exams 05/19/19 12:20 Ordered Basic Metabolic P tylor AM LABS Lab 05/22/19 04:00 Ordered Labs from last 24 hours 05/21/19 05:13 Sodium 138 Potassium 4.6 Chloride 108 H Carbon Dioxide 16 L Anion Gap 18.6 BUN 52 H Creatinine 3.3 H Glucose 157 H Calcium 6.6 L Total Bilirubin 0.4 AST 94 H ALT 114 H Alkaline Phosphata se 280 H Total Protein 6.0 L Albumin 3.2 L Globulin 2.8 Vitals: Last Vital Signs Temp 97.6 F 05/21/19 11:12 Pulse 72 05/21/19 11:12 Resp 18 05/21/19 11:12 BP 136/74 05/21/19 11:12 Pulse Ox 100 05/21/19 11:12 Discharge Plan Discharge Patient Disposition: Home Health Service Condition: Stable Prescriptions: New olanzapine 5 mg Tablet,Disintegrating 5 mg PO BEDTIME 30 Days Qty: 30 RF: 0 Continued lubiprostone 24 mcg capsule 24 mcg PO BID RF: 0 cholecalciferol (vitamin D3) 1,000 unit capsule 1,000 unit PO DAILY RF: 0 cod liver oil Capsule 1 cap PO BID RF: 0 cyclobenzaprine 10 mg tablet 10 mg PO TID PRN (Reason: Spasms) RF: 0 docusate sodium 100 mg capsule 100 mg PO PRN RF: 0 lorazepam 1 mg tablet 1 mg PO Q4H PRN (Reason: UNKNOWN) RF: 0 nitroglycerin 0.4 mg tablet, sublingual 0.4 mg SUBLINGUAL Q5M PRN (Reason: Chest Pain) RF: 0 ondansetron HCl 4 mg tablet 4 mg PO Q4H RF: 0 pantoprazole 40 mg tablet,delayed release (DR/EC) 40 mg PO DAILY PRN (Reason: Acid Reflux) RF: 0 prednisone 10 mg tablet 10 mg PO DIRECTED RF: 0 gabapentin 300 mg capsule 300 mg PO TID RF: 0 oxycodone 15 mg tablet 30 mg PO QID PRN (Reason: Pain) RF: 0 multivitamin [Multiple Vitamins] Tablet 1 tab PO DAILY RF: 0 Xgeva See Rx Instructions .ROUTE .COMPLEX RF: 0 Discontinued fentanyl 50 mcg/hr Patch 72 Hour 1 patch TRANSDERMAL Q72H RF: 0 Discharge Orders: Discharge Order (Routine); Ordered 05/21/19 Ordered By: Louise Crenshaw Referrals: Sridhar Tian MD [Physician] - 1 week (Follow up from hospital) Tyler Shea MD [Hospitalist] - 4-7 days (post-hospital follow up) Rich Doe [Primary Care Provider] - 4-7 days (Will need follow up on renal function given noted renal impairment during hospitalization) Discharge Diet: Regular Discharge Activity: Resume usual activity Discharge Attestations Time Spent in Discharge Care*: greater than 30 min Specific Discharge Activities: Specific discharge activities: educating patient, educating and/or supporting family/caregiver, documenting/other paperwork and evaluating patient/reviewing data Status at Discharge: Cognitive status at discharge: cognitively intact , Behavioral status at discharge: cooperative , Functional status at discharge: independent ambulation Overall status at discharge: patient is back to baseline Quality Metrics Clinical Quality Measures During this hospital stay, did patient experience: None Coding Level of Care Code Acute Culinary Manager for Chg Fwd Diagnoses Intractable nausea and vomiting R11.2 Dysphagia R13.10 Dysphagia type: unspecified 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
[2019-05-21 12:56] VITALS: BP 136/74; PULSE 72; RESP 18; TEMP 36.4; O2SAT 100
== END 2019-05-21 14:33 | disposition home health service (06) | DRG 683 ==
LOC: ER 15:49 → MEDSURG 17:02
PROVIDERS: Otolaryngology; Admitting Provider Family Medicine; Emergency Provider Emergency Medicine; Family Provider Family Medicine; PCP Family Medicine; Visit Provider Family Medicine
PROC: 0DJ08ZZ Inspection of Upper Intestinal Tract, Via Natural or Artificial Opening Endoscopic (ICD-10-PCS; CPT 43235; principal; 2019-05-19 12:00)
DX: N17.9 Acute kidney failure, unspecified (principal); C22.0 Liver cell carcinoma; C79.51 Secondary malignant neoplasm of bone; I24.1 Dressler's syndrome; Z92.3 Personal history of irradiation; Z92.21 Personal history of antineoplastic chemotherapy; I25.10 Atherosclerotic heart disease of native coronary artery without angina pectoris; Z95.5 Presence of coronary angioplasty implant and graft; G47.33 Obstructive sleep apnea (adult) (pediatric); Z99.81 Dependence on supplemental oxygen; I10 Essential (primary) hypertension; E78.2 Mixed hyperlipidemia; E11.42 Type 2 diabetes mellitus with diabetic polyneuropathy; K21.9 Gastro-esophageal reflux disease without esophagitis; Z87.11 Personal history of peptic ulcer disease; K59.00 Constipation, unspecified; M54.5 Low back pain; M54.2 Cervicalgia; Z87.891 Personal history of nicotine dependence; F10.21 Alcohol dependence, in remission; K20.0 Eosinophilic esophagitis; R11.2 Nausea with vomiting, unspecified; Z79.891 Long term (current) use of opiate analgesic; G89.29 Other chronic pain; K31.84 Gastroparesis; R13.10 Dysphagia, unspecified; Z79.899 Other long term (current) drug therapy; N10 Acute pyelonephritis; E86.0 Dehydration
CPT/HCPCS: 12345; 36415; 36416; 51798; 74176; 74230; 80053; 82570; 82962; 83690; 83735; 84100; 84145; 84156; 84300; 85025; 85999; 87086; 92611; 96365; 96372; 96374; 96375; 99282; J0610; J0696; J1100; J1200; J1650; J2001; J2060; J2270; J2405; J2704; J2765; J3490; J7030

== ENCOUNTER 2019-05-27 05:54 | Outpatient (RCR) | payer OTHER, MEDICARE, SELFPAY ==
--- NOTE | 2019-05-28 11:49 | ONC FU_ITS ---
Dr. Shea Patient Follow-Up Note Patient: Victoriano Resendiz Unit #: [id number]: 1950 Dicatated By: Tyler Shea M.D.Date of Visit:May 27, 2019 Onc Med Follow-up/Prog Note Chief Complaint: Hepatocellular carcinoma. History of Present Illness: This is a 68 year-old man with metastatic hepatocellular carcinoma. He has multiple medical illnesses including hypertension, hyperlipidemia, type II diabetes with peripheral neuropathy, coronary artery disease, obstructive sleep apnea, GERD/peptic ulcer disease, degenerative arthritis/degenerative disease of the spine, nephrolithiasis, gout, vitamin D deficiency, and posttraumatic stress disorder. In August 2017 he was admitted to the hospital with non-ST elevation myocardial infarction. At the time he underwent emergent coronary angioplasty for obstructive disease in the mid LAD and first diagonal branch, both of which were noted to contain thrombus. He did not require stent placement. 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 His CT angiogram at that time showed a moderate-sized pericardial effusion, but with no evidence for aortic aneurysm or dissection. Also noted on that study was fatty infiltration of the liver and a 3.2 cm mass in the right lobe of the liver, felt to be indeterminate. Further evaluation with CT abdomen/pelvis on 10/12/2017 showed a 3.7 x 3.8 cm mass involving the right lobe of the liver. It was felt to appear more consistent with a hemangioma then other etiologies. A 3 month interval follow-up was recommended. He had then presented in the fall with left arm pain. It improved with physical therapy. He had then developed worsening pain in his right shoulder and arm. X-rays of the right shoulder showed moderate degenerative changes. MRI showed a mass lesion at the distal aspect of the coracoid process with bony destruction and a soft tissue component which was noted to protrude anteriorly. The appearance was suspicious for malignancy. He had orthopedic surgery consultation with Dr. Hemanth Santos on 04/21/2018. Subsequent needle biopsy of the right shoulder soft tissue mass on 05/12/2018 showed metastatic carcinoma consistent with an hepatocellular primary. The tumor cells were noted to be strongly reactive for a HEP-PAR-1 and negative for CK7, CK20, PAX8, RCC, and thyroglobulin. His further staging with CT scans of the abdomen/pelvis on 05/12/2018 showed a large ill defined arterially enhancing mass within the right hepatic lobe measuring up to 8 cm. The primary diagnostic consideration was hepatocellular carcinoma. A solitary metastatic lesion was felt to be less likely. A 1.5 cm enhancing lesion within the inferior aspect of the spleen was felt to possibly represent splenic hematoma or hemangioma, but with metastatic lesion not excluded. The prostate was noted to be heterogeneously enlarged. CT of the chest on 05/13/2018 showed borderline enlarged right paratracheal, left paratracheal, and subcarinal lymph nodes, the largest in the subcarinal region measuring 15 mm. There were no suspicious pulmonary nodules and there was no pleural or pericardial effusion noted. A destructive expansile lytic lesion was noted to involve the right coracoid process with associated soft tissue mass. There were degenerative changes of the lower cervical spine. I had seen him initially on 06/15/2018. Given the extent of involvement in the right shoulder area, I did have him see Dr. Rapp for palliative radiation. I also reviewed options for systemic therapy, and per NCCN guidelines I had recommended an initial course of therapy with sorafenib. He began radiation to the right shoulder on 06/23/2018. He completed his course of treatment on 06/29/2018, total dose 4000 cGy. He had a very good clinical response. He began treatment with sorafenib 400 mg twice a day on 07/14/2018. He was then given additional radiation to the left scapula and to the pelvis. Treatment was completed to the left scapula on 08/18/2018 and to the pelvis on 09/01/2018, both sites to 2400 cGy. I had seen him for a followup visit on 09/01/2018. At that time he had developed headache on the right side. Initially he continued the sorafenib, but it was stopped as of 09/12/2018. An MRI of the head on 09/15/2018 showed a thin right parietal subacute subdural hematoma overlying the right parietal convexity. It extended over the right occipital and temporal lobes. It measured 5 mm in maximum dimension. There was minimal mass effect on the underlying brain parenchyma. There was no evidence of metastatic disease. During his further follow-up, he continued conservative management for the subdural hematoma, and his symptoms gradually improved. Repeat CT abdomen/pelvis on 09/27/2018 showed increased size variable decreased enhancement/attenuation of the right hepatic lobe mass. There was evidence of progressive lytic metastatic disease involving the sacrum. He was then approved for second line systemic therapy with nivolumab. He began cycle 1 on 10/12/2018. He was able to tolerate the nivolumab without any significant toxicity. He then continued treatment at 2-week intervals. As of 01/11/2019 he received his 6th cycle. His restaging CT scans on 01/14/2019 showed development of an expansile lesion of the right second rib felt to probably represent a metastatic lesion. There was no change in the treated lesion in the right lobe of the liver. There was also no change in the size of the probable right sacral metastasis. Further evaluation with PET/CT on 01/22/2018 showed a region of probable necrosis in the posterior right hepatic lobe, but with no evidence for active hepatic malignancy. There was evidence for multifocal osseous metastatic disease, including a right second rib lesion measuring 3.9 x 3.4 cm with SUV 4.0. There were additional FDG positive bone lesions in the right scapula, T3 vertebral body, left transverse process of T6, sacrum, proximal right femur, right 10th rib, and left scapula. With those findings, he was referred to Dr. Rapp, and he has been undergoing additional phase of radiation to the thoracic spine. On 03/26/2019 he was admitted to the hospital with complaints of severe pain in the throat/chest and difficulty swallowing. The symptoms were severe enough that he was having vomiting/regurgitation. Radiation esophagitis was suspected, but his Gastrografin upper GI study showed evidence of esophageal stenosis. He then had ENT consultation and he was confirmed on subsequent esophagoscopy to have a benign-appearing stricture, which was able to be dilated. There was no evidence of radiation or Kimberly esophagitis. His symptoms improved, and he was then able to continue radiation. He completed treatment to the thoracic spine on 04/04/2019, total dose 3250 cGy. I had seen him for a follow-up visit on 04/15/2019. Given a low likelihood of benefit with any further systemic therapy, he opted to just continue on symptomatic/supportive care. He declined hospice. On 05/15/2019 he was readmitted to the hospital with continued difficulty swallowing. His repeat EGD showed a small stricture in the post cricoid area. The remainder of the esophagus was unremarkable. The area of stricture was dilated with subsequent improvement in his symptoms. He was discharged home on 05/21/2019. He is seen for a follow-up visit. He has been feeling rough, though his swallowing is getting better now. However, he complains that nausea is still a constant mora. It did improve after he took off his fentanyl patch, and he is at least able to drink liquids now and keep it down. He has limited activity. ECOG score is 2. He has continued to lose weight. He has just occasional cough. He does not complain of shortness of breath or chest pain. Bowel and bladder function remain adequate. He continues have pain in his upper back on the left side, in the left shoulder area, and left arm. He has lost function in the left arm. He is has been getting some benefit taking immediate release oxycodone, though he says it does tend to make him feel cloudy. He did notice better pain control with fewer side effects when he was getting IV morphine in the hospital. Medications: Ativan 1 Tablet (of 1 mg) Oral q 4 hours PRN, Cod Liver Oil 1 Tablet (of 1000 mg) Capsule Oral daily, Cyclobenzaprine HCl 1 Tablet (of 10 mg) Oral t.i.d. PRN, Fluticasone Propionate HFA 1 (220 mcg/act) Aerosol Inhalation b.i.d., Morphine Sulfate 1 (30 mg) Tablet Oral q 4 hours PRN, Morphine Sulfate ER 1 Tablet (of 60 mg) Tablet, controlled release Oral q 12 hours, Multivitamin Adult 1 Tablet Oral daily, Nitroglycerin 1 (0.4 mg) Tablet, sublingual Sublingual PRN, Ondansetron HCl 1 Tablet (of 4 mg) Oral four times a day PRN, Pantoprazole Sodium 1 Tablet (of 40 mg) Tablet, enteric coated Oral daily PRN, Vitamin D3 1 Tablet (of 1000 Units) Oral daily Allergies: No Known Allergies. Review of Systems: Constitutional - He has limited activity. He is doing a little bit of light work at home. His appetite has not been good. He is losing weight. No fever or chills. He has episodes of sweating. ECOG score is 2, ENMT - He has hd a runny nose. No mouth sores. No sore throat. His swalllowing is getting better now, Hematologic/Lymphatic - No abnormal bruising or bleeding, Respiratory - No shortness of breath. He has just occasional cough. No pleuritic pain or hemoptysis, Cardiovascular - No angina pain. No palpitations, Gastrointestinal - He has nausea, but the medication is helping with that. No vomiting. He has occasional acid reflux. He has mild constipation. No blood in the stool or black stools, Genitourinary (M) - He has some hesitancy with urination. No dysuria or hematuria. No urinary frequency. No urgency or incontinence, Musculoskeletal - He still has pain in his upper back on the left side and in the left shoulder and arm. He has had pain at other sites, including the right hip. He has had recurrence of gout in his right foot, Integumentary - No skin complications, Neurologic - He has had just occasional headaches. He has had dizziness. He has numbness/tingling in his left arm and hand. He has lost some function of the left arm, Psychiatric - He has anxiety and depression. Vital Signs: Performed on May 27, 2019 09:46 Height - 69.00 in Weight - 151.2 lbs (HIGH) BSA - 1.83 sq.m BMI - 22.33 Temperature - 97.3 F (LOW) Pulse - 84 /min Respiration - 24 /min BP - 146/84 mm(hg) (HIGH) O2 Sat - 100 % Pain - 7 Physical Examination: Constitutional - He appears somewhat weak generally, Eyes - Sclerae nonicteric. Conjunctivae clear, ENMT - No lesions noted in the oral cavity, Hematologic/Lymphatic - No cervical, clavicular, or axillary adenopathy, Respiratory - Lungs sound clear, Cardiovascular - Heart rhythm is regular. There is no murmur, gallop, or rub noted, Abdomen - Soft. Liver is not enlarged. Spleen is not palpable. There is no abdominal mass or ascites noted and there is no inguinal adenopathy, Extremities - No edema, Neurologic - There is some weakness in the left arm. There are no other focal neurologic deficits noted. Lab/Imaging: Test performed on Apr 14, 2019 07:35 Glucose 101 mg/dL BUN 12 mg/dL Creatinine 1.1 mg/dL Cr Clearance (Est) 59.58 mL/min Sodium 138 mmol/L Potassium 4.3 mmol/L Chloride 99 mmol/L CO2 25 mmol/L Calcium 9.3 mg/dL Protein, Total 7.1 g/dL Albumin 3.8 g/dL Globulin 3.3 g/dL Bilirubin, Total 0.3 mg/dL Alkaline Phosphatase 122 IU/L AST (SGOT) 34 IU/L ALT (SGPT) 48 IU/L WBC 5.9 10^9/L RBC 4.10 10^12/L HGB 12.0 g/dL HCT 37.9 % MCV 92.4 fl MCH 29.3 pg MCHC 31.7 g/dL RDW 14.6 % Platelet Count 291 10^9/L MPV 9.3 fL Neutrophils (Gran) 4.3 10^9/L Lymphocytes 0.4 10^9/L Monocytes 0.6 10^9/L Eosinophils 0.5 10^9/L Basophils 0.1 10^9/L Manual Lymphocytes 6.8 % Manual Monocytes 9.9 % Manual Eosinophils 9.0 % Manual Basophils 0.9 % NRBCs 0.0 /100 WBC Impression: 1. Patient with hepatocellular carcinoma. By clinical evaluation his disease is stage IVB (T1, NX, M1) with biopsy proven metastatic involvement in the right shoulder. 2. There is also a possible metastatic lesion in the spleen by CT scan. His other medical illnesses include: 3. Hypertension. 4. Hyperlipidemia. 5. Type II diabetes with peripheral neuropathy. 6. Coronary artery disease with history of non-ST elevation myocardial infarction in August 2017. 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 7. GERD/peptic ulcer disease. 8. Obstructive sleep apnea. 9. Degenerative arthritis/degenerative disease of the spine. 10. Gout. 11. Nephrolithiasis. 12. Vitamin D deficiency. 13. Posttraumatic stress disorder. Due to symptomatic involvement in the right shoulder, he initially was treated with palliative radiation to that area. He completed treatment on 06/29/2018, total dose 4000 cGy. He had a very good clinical response. He then began systemic therapy with sorafenib 400 mg twice a day on 07/14/2018. He has now completed additional palliative radiation to the left scapula and to the pelvis, both sites to 2400 cGy. Initially he appeared to be tolerating the sorafenib with acceptable toxicity. However, as of his follow-up visit on 09/01/2018 he had developed headache on the right side. This continued to worsen, and the sorafenib was then stopped as of 09/12/2018. MRA of the head on 09/15/2018 showed evidence of a subacute right subdural hematoma. He was taken off Plavix. It was otherwise been managed conservatively, and it subsequently improved. During follow-up he did show some decline in performance status. His repeat CT scans on 09/27/2018 showed variable appearance to the liver, but there likely was some disease progression in both the liver and bone. On 10/12/2018 he began second line therapy with nivolumab 240 mg by IV infusion every 2 weeks. As of 01/11/2019 he had completed 6 cycles of treatment. His restaging CT and subsequent PET/CT appeared to show evidence of progression of the bony metastatic disease, with the most significant site being in the anterior right second rib. He had initially continued his immunotherapy, but he then had worsening back pain and development of neurologic symptoms in the left arm, and he was confirmed by MRI to have further disease progression in the thoracic spine. The immunotherapy was again put on hold, and he has had underwent palliative radiation to the thoracic spine. He completed treatment on 04/04/2019, total dose 3250 cGy. During that time he required hospital admission for severe dysphasia, but that was determined to be due to a benign esophageal stricture, and his symptoms are improved following an esophageal dilatation procedure. I had seen him for a follow-up visit on 04/15/2019. At that point his pain was being managed adequately with immediate release oxycodone. He had persistent neurologic symptoms in the left arm, and he still had some difficulty swallowing. Given the low likelihood of benefit with further systemic therapy, he opted to just continue with symptomatic/supportive care measures. He declined hospice. During subsequent follow-up his pain worsened and he had continued decline in performance status. He required admission to the hospital for recurrence of dysphasia. That does seem to be improving after repeat EGD and dilatation procedure. Pain management, though, continues to be an issue. He was having severe nausea, but that improved somewhat after stopping fentanyl. He has had [employer] side effects with immediate release oxycodone,, he seemed to do better on IV morphine when he was in the hospital. His overall condition and prognosis are poor. Plan: He continue symptomatic/supportive care. I am going to try transitioning his pain medication to extended release morphine 60 mg every 12 hours together with 30 mg of immediate release morphine as needed. He has ondansetron available to use as needed for nausea. He also has a prescription for Megace suspension, [facility] I did recommend that he go ahead and try the Megace at 5 mL daily. If that is not effective, I will see if I can get Marinol available for him. He also will be given a refill on prednisone for the gout symptoms. He will be scheduled for a follow-up visit in 2 weeks. Signed By: Tyler Shea M.D. <<Signature on File>>
== END 2019-06-11 23:59 | disposition home or self-care (01) ==
LOC: ONCMED 05:54
PROVIDERS: Family Provider Family Medicine; PCP Family Medicine; Visit Provider Internal Medicine Medical Oncology
DX: Z51.5 Encounter for palliative care (principal); C22.0 Liver cell carcinoma; C79.51 Secondary malignant neoplasm of bone; I10 Essential (primary) hypertension; E78.5 Hyperlipidemia, unspecified; E11.42 Type 2 diabetes mellitus with diabetic polyneuropathy; I25.10 Atherosclerotic heart disease of native coronary artery without angina pectoris; G47.33 Obstructive sleep apnea (adult) (pediatric); K21.9 Gastro-esophageal reflux disease without esophagitis; M19.90 Unspecified osteoarthritis, unspecified site; M10.9 Gout, unspecified; E55.9 Vitamin D deficiency, unspecified; F43.10 Post-traumatic stress disorder, unspecified; I25.2 Old myocardial infarction; I24.1 Dressler's syndrome; K76.0 Fatty (change of) liver, not elsewhere classified; Z79.899 Other long term (current) drug therapy; Z87.898 Personal history of other specified conditions; Z87.11 Personal history of peptic ulcer disease; Z92.3 Personal history of irradiation; Z92.21 Personal history of antineoplastic chemotherapy
CPT/HCPCS: 99214

== ENCOUNTER → 2019-05-31 13:45 | Outpatient (BNVA) | payer OTHER, MEDICARE, SELFPAY | PROVIDERS: Family Provider Family Medicine; PCP Family Medicine; Visit Provider Otolaryngology | DX: Z48.89 Encounter for other specified surgical aftercare (principal); R47.02 Dysphasia | CPT/HCPCS: 99213; 99214 ==

== ENCOUNTER → 2019-06-15 08:09 | Outpatient (BNVA) | payer OTHER, SELFPAY | PROVIDERS: Family Provider Family Medicine; PCP Family Medicine; Referring Provider Family Medicine; Visit Provider Specialist | DX: R20.0 Anesthesia of skin (principal); R20.2 Paresthesia of skin; C79.51 Secondary malignant neoplasm of bone; C22.0 Liver cell carcinoma | CPT/HCPCS: 99204 ==

== ENCOUNTER 2019-06-20 06:02 | Outpatient (RCR) | payer OTHER, SELFPAY ==
--- NOTE | 2019-06-21 08:36 | ONC FU_ITS ---
Dr. Shea Patient Follow-Up Note Patient: Victoriano Resendiz Unit #: [id number]: 1950 Dicatated By: Tyler Shea M.D.Date of Visit:Jun 20, 2019 Onc Med Follow-up/Prog Note Chief Complaint: Hepatocellular carcinoma. History of Present Illness: This is a 69 year-old man with metastatic hepatocellular carcinoma. He has multiple medical illnesses including hypertension, hyperlipidemia, type II diabetes with peripheral neuropathy, coronary artery disease, obstructive sleep apnea, GERD/peptic ulcer disease, degenerative arthritis/degenerative disease of the spine, nephrolithiasis, gout, vitamin D deficiency, and posttraumatic stress disorder. In August 2017 he was admitted to the hospital with non-ST elevation myocardial infarction. At the time he underwent emergent coronary angioplasty for obstructive disease in the mid LAD and first diagonal branch, both of which were noted to contain thrombus. He did not require stent placement. 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 His CT angiogram at that time showed a moderate-sized pericardial effusion, but with no evidence for aortic aneurysm or dissection. Also noted on that study was fatty infiltration of the liver and a 3.2 cm mass in the right lobe of the liver, felt to be indeterminate. Further evaluation with CT abdomen/pelvis on 10/12/2017 showed a 3.7 x 3.8 cm mass involving the right lobe of the liver. It was felt to appear more consistent with a hemangioma then other etiologies. A 3 month interval follow-up was recommended. He had then presented in the fall with left arm pain. It improved with physical therapy. He had then developed worsening pain in his right shoulder and arm. X-rays of the right shoulder showed moderate degenerative changes. MRI showed a mass lesion at the distal aspect of the coracoid process with bony destruction and a soft tissue component which was noted to protrude anteriorly. The appearance was suspicious for malignancy. He had orthopedic surgery consultation with Dr. Hemanth Santos on 04/21/2018. Subsequent needle biopsy of the right shoulder soft tissue mass on 05/12/2018 showed metastatic carcinoma consistent with an hepatocellular primary. The tumor cells were noted to be strongly reactive for a HEP-PAR-1 and negative for CK7, CK20, PAX8, RCC, and thyroglobulin. His further staging with CT scans of the abdomen/pelvis on 05/12/2018 showed a large ill defined arterially enhancing mass within the right hepatic lobe measuring up to 8 cm. The primary diagnostic consideration was hepatocellular carcinoma. A solitary metastatic lesion was felt to be less likely. A 1.5 cm enhancing lesion within the inferior aspect of the spleen was felt to possibly represent splenic hematoma or hemangioma, but with metastatic lesion not excluded. The prostate was noted to be heterogeneously enlarged. CT of the chest on 05/13/2018 showed borderline enlarged right paratracheal, left paratracheal, and subcarinal lymph nodes, the largest in the subcarinal region measuring 15 mm. There were no suspicious pulmonary nodules and there was no pleural or pericardial effusion noted. A destructive expansile lytic lesion was noted to involve the right coracoid process with associated soft tissue mass. There were degenerative changes of the lower cervical spine. I had seen him initially on 06/15/2018. Given the extent of involvement in the right shoulder area, I did have him see Dr. Rapp for palliative radiation. I also reviewed options for systemic therapy, and per NCCN guidelines I had recommended an initial course of therapy with sorafenib. He began radiation to the right shoulder on 06/23/2018. He completed his course of treatment on 06/29/2018, total dose 4000 cGy. He had a very good clinical response. He began treatment with sorafenib 400 mg twice a day on 07/14/2018. He was then given additional radiation to the left scapula and to the pelvis. Treatment was completed to the left scapula on 08/18/2018 and to the pelvis on 09/01/2018, both sites to 2400 cGy. I had seen him for a followup visit on 09/01/2018. At that time he had developed headache on the right side. Initially he continued the sorafenib, but it was stopped as of 09/12/2018. An MRI of the head on 09/15/2018 showed a thin right parietal subacute subdural hematoma overlying the right parietal convexity. It extended over the right occipital and temporal lobes. It measured 5 mm in maximum dimension. There was minimal mass effect on the underlying brain parenchyma. There was no evidence of metastatic disease. During his further follow-up, he continued conservative management for the subdural hematoma, and his symptoms gradually improved. Repeat CT abdomen/pelvis on 09/27/2018 showed increased size variable decreased enhancement/attenuation of the right hepatic lobe mass. There was evidence of progressive lytic metastatic disease involving the sacrum. He was then approved for second line systemic therapy with nivolumab. He began cycle 1 on 10/12/2018. He was able to tolerate the nivolumab without any significant toxicity. He then continued treatment at 2-week intervals. As of 01/11/2019 he received his 6th cycle. His restaging CT scans on 01/14/2019 showed development of an expansile lesion of the right second rib felt to probably represent a metastatic lesion. There was no change in the treated lesion in the right lobe of the liver. There was also no change in the size of the probable right sacral metastasis. Further evaluation with PET/CT on 01/22/2018 showed a region of probable necrosis in the posterior right hepatic lobe, but with no evidence for active hepatic malignancy. There was evidence for multifocal osseous metastatic disease, including a right second rib lesion measuring 3.9 x 3.4 cm with SUV 4.0. There were additional FDG positive bone lesions in the right scapula, T3 vertebral body, left transverse process of T6, sacrum, proximal right femur, right 10th rib, and left scapula. With those findings, he was referred to Dr. Rapp, and he has been undergoing additional phase of radiation to the thoracic spine. On 03/26/2019 he was admitted to the hospital with complaints of severe pain in the throat/chest and difficulty swallowing. The symptoms were severe enough that he was having vomiting/regurgitation. Radiation esophagitis was suspected, but his Gastrografin upper GI study showed evidence of esophageal stenosis. He then had ENT consultation and he was confirmed on subsequent esophagoscopy to have a benign-appearing stricture, which was able to be dilated. There was no evidence of radiation or Kimberly esophagitis. His symptoms improved, and he was then able to continue radiation. He completed treatment to the thoracic spine on 04/04/2019, total dose 3250 cGy. I had seen him for a follow-up visit on 04/15/2019. Given a low likelihood of benefit with any further systemic therapy, he opted to just continue on symptomatic/supportive care. He declined hospice. On 05/15/2019 he was readmitted to the hospital with continued difficulty swallowing. His repeat EGD showed a small stricture in the post cricoid area. The remainder of the esophagus was unremarkable. The area of stricture was dilated with subsequent improvement in his symptoms. He was discharged home on 05/21/2019 to continue symptomatic/supportive care. He had called last week to report a new skin rash. He was seen the following day, on 06/16/2019, and he had an obvious herpes zoster eruption on the left side. He began treatment with Valtrex 1000 mg 3 times daily. He is seen for a follow-up visit. He has not been not feeling good. The skin eruption thus far has not really been getting any better. He continues to have significant pain in the neck/shoulder area, worse on the left side. He also has pain with the herpes zoster eruption. He says the pain is bearable with his current medication, though it is not really controlled. He has very limited activity. His ECOG score is 3. His appetite comes and goes. He has been losing weight. He does not have fever. He sometimes has sweating. He is feeling more depressed. It does seem to correlate with his pain. He had previously tried citalopram at just 10 mg daily, and he did not tolerate it due to CHROME TANNER side effects. He also continues to have nausea daily, though without vomiting. Bowel function has been adequate with medication, though he still does have some constipation. Bladder function has been okay. He has occasional headache. He sometimes dizzy/lightheaded. He continues to have numbness in both hands, left worse than right, and he also has some numbness in the sacral area. Medications: Ativan 1 Tablet (of 1 mg) Oral q 4 hours PRN, Cod Liver Oil 1 Tablet (of 1000 mg) Capsule Oral daily, Cyclobenzaprine HCl 1 Tablet (of 10 mg) Oral t.i.d. PRN, Fluticasone Propionate HFA 1 (220 mcg/act) Aerosol Inhalation b.i.d., Marinol 1 Capsule (of 5 mg) Oral b.i.d., Morphine Sulfate 1 (30 mg) Tablet Oral q 4 hours PRN, Morphine Sulfate ER 1 Tablet (of 60 mg) Tablet, controlled release Oral q 12 hours, Multivitamin Adult 1 Tablet Oral daily, Nitroglycerin 1 (0.4 mg) Tablet, sublingual Sublingual PRN, Ondansetron HCl 1 Tablet (of 4 mg) Oral four times a day PRN, Pantoprazole Sodium 1 Tablet (of 40 mg) Tablet, enteric coated Oral daily PRN, Valtrex 1 Tablet (of 1 g) Oral daily for 7 days, Vitamin D3 1 Tablet (of 1000 Units) Oral daily Allergies: No Known Allergies. Review of Systems: Constitutional - His energy level is low. His appetite is very poor and weight is down 14 pounds since last visit. No fever or chills. He reports occasional night sweats. ECOG score is 3, ENMT - He has some sinus drainage. No mouth sores. No sore throat. He still has some difficulty swallowing, Hematologic/Lymphatic - No abnormal bruising or bleeding, Respiratory - No shortness of breath. He has an occasional cough. No pleuritic pain or hemoptysis, Cardiovascular - No angina pain. No palpitations, Gastrointestinal - He has constant nausea but no vomiting. He has occasional heartburn, but its adequately controlled with Protonix. No diarrhea. He does have constipation, but the medications are helping with that. No blood in the stool or black stools, Genitourinary (M) - No dysuria or hematuria. No urinary frequency. No urgency or incontinence, Musculoskeletal - He reports constant pain across his shoulders and back, Integumentary - He recently started treatment for shingles, Neurologic - He reports having sinus headaches with occasional dizziness. Numbnes and tingling in both hands, left worse than right, and in his sacral area, Psychiatric - He has significant depression which is somewhat associated with his pain. No insomnia. Vital Signs: Performed on Jun 20, 2019 13:02 Height - 69.00 in Weight - 137.8 lbs (LOW) BSA - 1.76 sq.m BMI - 20.35 Temperature - 97.9 F (LOW) Pulse - 86 /min Respiration - 20 /min BP - 147/71 mm(hg) (HIGH) O2 Sat - 97 % Pain - 8 Physical Examination: Constitutional - He appears generally weak, Eyes - Sclerae nonicteric. Conjunctivae clear, ENMT - No lesions noted in the oral cavity, Hematologic/Lymphatic - No cervical, clavicular, or axillary adenopathy, Respiratory - Lungs sound clear with some decrease in air movement, Cardiovascular - Heart rhythm is regular. There is no murmur, gallop, or rub noted, Abdomen - Soft. Liver is not enlarged. Spleen is not palpable. There is no abdominal mass or ascites noted and there is no inguinal adenopathy, Extremities - No edema, Integumentary - There is a herpes zoster eruption in the mid thoracic distribution on the left side. It is still in a vesicular stage, Neurologic - There is some weakness in the left arm. There are no other focal neurologic deficits noted. Impression: 1. Patient with hepatocellular carcinoma. By clinical evaluation his disease is stage IVB (T1, NX, M1) with biopsy proven metastatic involvement in the right shoulder. 2. There is also a possible metastatic lesion in the spleen by CT scan. His other medical illnesses include: 3. Hypertension. 4. Hyperlipidemia. 5. Type II diabetes with peripheral neuropathy. 6. Coronary artery disease with history of non-ST elevation myocardial infarction in August 2017. 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 7. GERD/peptic ulcer disease. 8. Obstructive sleep apnea. 9. Degenerative arthritis/degenerative disease of the spine. 10. Gout. 11. Nephrolithiasis. 12. Vitamin D deficiency. 13. Posttraumatic stress disorder. Due to symptomatic involvement in the right shoulder, he initially was treated with palliative radiation to that area. He completed treatment on 06/29/2018, total dose 4000 cGy. He had a very good clinical response. He then began systemic therapy with sorafenib 400 mg twice a day on 07/14/2018. He has now completed additional palliative radiation to the left scapula and to the pelvis, both sites to 2400 cGy. Initially he appeared to be tolerating the sorafenib with acceptable toxicity. However, as of his follow-up visit on 09/01/2018 he had developed headache on the right side. This continued to worsen, and the sorafenib was then stopped as of 09/12/2018. MRA of the head on 09/15/2018 showed evidence of a subacute right subdural hematoma. He was taken off Plavix. It was otherwise been managed conservatively, and it subsequently improved. During follow-up he did show some decline in performance status. His repeat CT scans on 09/27/2018 showed variable appearance to the liver, but there likely was some disease progression in both the liver and bone. On 10/12/2018 he began second line therapy with nivolumab 240 mg by IV infusion every 2 weeks. As of 01/11/2019 he had completed 6 cycles of treatment. His restaging CT and subsequent PET/CT appeared to show evidence of progression of the bony metastatic disease, with the most significant site being in the anterior right second rib. He had initially continued his immunotherapy, but he then had worsening back pain and development of neurologic symptoms in the left arm, and he was confirmed by MRI to have further disease progression in the thoracic spine. The immunotherapy was again put on hold, and he has had underwent palliative radiation to the thoracic spine. He completed treatment on 04/04/2019, total dose 3250 cGy. During that time he required hospital admission for severe dysphasia, but that was determined to be due to a benign esophageal stricture, and his symptoms are improved following an esophageal dilatation procedure. I had seen him for a follow-up visit on 04/15/2019. At that point his pain was being managed adequately with immediate release oxycodone. He had persistent neurologic symptoms in the left arm, and he still had some difficulty swallowing. Given the low likelihood of benefit with further systemic therapy, he opted to just continue with symptomatic/supportive care measures. He declined hospice. During subsequent follow-up his pain worsened and he had continued decline in performance status. He required admission to the hospital for recurrence of dysphasia. His swallowing did show some improvement after repeat EGD and dilatation procedure. His pain management, though, has remained problematic, in part due to poor tolerance for opiate pain medication. He does seem to be doing little better with a combination of extended and immediate release morphine, though his pain is still not adequately controlled. He is having significant depression, management of which also has been problematic due to poor tolerance for medication. The depression does seem to correlate with his pain. He also has continued to have persistent nausea. He also now is requiring treatment for a herpes zoster skin eruption. His performance status continues to decline. Plan: He continue symptomatic/supportive care. His extended release morphine dosage will be increased to 100 mg every 12 hours, and he will continue immediate release morphine as needed. He will add MiraLAX to his bowel regimen as needed. He will be given a prescription for Flonase nasal spray for complaints of constant nasal drip. He will start Domeboro soaks for the herpes zoster and he will continue Valtrex 1 g 3 times daily. I am going to have him try adding Zyprexa 2.5 mg twice daily for the nausea. Depending on how he tolerates it, I may consider trying bupropion for the depression. I again discussed the possibility of hospice referral, and he is at least willing to consider it. Signed By: Tyler Shea M.D. <<Signature on File>>
== END 2019-07-12 23:59 | disposition home or self-care (01) ==
LOC: ONCMED 06:02
PROVIDERS: Family Provider Family Medicine; PCP Family Medicine; Visit Provider Internal Medicine Medical Oncology
DX: Z51.5 Encounter for palliative care (principal); C22.0 Liver cell carcinoma; C79.51 Secondary malignant neoplasm of bone; G89.3 Neoplasm related pain (acute) (chronic); B02.9 Zoster without complications; F32.9 Major depressive disorder, single episode, unspecified; I10 Essential (primary) hypertension; E78.5 Hyperlipidemia, unspecified; E11.42 Type 2 diabetes mellitus with diabetic polyneuropathy; I25.10 Atherosclerotic heart disease of native coronary artery without angina pectoris; G47.33 Obstructive sleep apnea (adult) (pediatric); K21.9 Gastro-esophageal reflux disease without esophagitis; M19.90 Unspecified osteoarthritis, unspecified site; M10.9 Gout, unspecified; E55.9 Vitamin D deficiency, unspecified; I25.2 Old myocardial infarction; I24.1 Dressler's syndrome; F43.10 Post-traumatic stress disorder, unspecified; Z79.899 Other long term (current) drug therapy; Z87.11 Personal history of peptic ulcer disease; Z87.442 Personal history of urinary calculi; Z92.3 Personal history of irradiation; Z92.25 Personal history of immunosuppression therapy
CPT/HCPCS: 99214

== ENCOUNTER → 2019-06-22 10:05 | Outpatient (BNVA) | payer OTHER, SELFPAY | PROVIDERS: Family Provider Family Medicine; PCP Family Medicine; Visit Provider Specialist | DX: M54.12 Radiculopathy, cervical region (principal); Z87.891 Personal history of nicotine dependence | CPT/HCPCS: 95907 ==

== ENCOUNTER 2019-08-08 10:25 | Outpatient (RCR) | payer OTHER, SELFPAY ==
--- NOTE | 2019-08-03 18:54 | ONC FU_ITS ---
Dr. Shea Patient Follow-Up Note Patient: Victoriano Resendiz Unit #: [id number]: 1950 Dicatated By: Tyler Shea M.D.Date of Visit:Aug 03, 2019 Onc Med Follow-up/Prog Note Chief Complaint: Hepatocellular carcinoma. History of Present Illness: This is a 69 year-old man with metastatic hepatocellular carcinoma. He has multiple medical illnesses including hypertension, hyperlipidemia, type II diabetes with peripheral neuropathy, coronary artery disease, obstructive sleep apnea, GERD/peptic ulcer disease, degenerative arthritis/degenerative disease of the spine, nephrolithiasis, gout, vitamin D deficiency, and posttraumatic stress disorder. In August 2017 he was admitted to the hospital with non-ST elevation myocardial infarction. At the time he underwent emergent coronary angioplasty for obstructive disease in the mid LAD and first diagonal branch, both of which were noted to contain thrombus. He did not require stent placement. 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 His CT angiogram at that time showed a moderate-sized pericardial effusion, but with no evidence for aortic aneurysm or dissection. Also noted on that study was fatty infiltration of the liver and a 3.2 cm mass in the right lobe of the liver, felt to be indeterminate. Further evaluation with CT abdomen/pelvis on 10/12/2017 showed a 3.7 x 3.8 cm mass involving the right lobe of the liver. It was felt to appear more consistent with a hemangioma then other etiologies. A 3 month interval follow-up was recommended. He had then presented in the fall with left arm pain. It improved with physical therapy. He had then developed worsening pain in his right shoulder and arm. X-rays of the right shoulder showed moderate degenerative changes. MRI showed a mass lesion at the distal aspect of the coracoid process with bony destruction and a soft tissue component which was noted to protrude anteriorly. The appearance was suspicious for malignancy. He had orthopedic surgery consultation with Dr. Hemanth Santos on 04/21/2018. Subsequent needle biopsy of the right shoulder soft tissue mass on 05/12/2018 showed metastatic carcinoma consistent with an hepatocellular primary. The tumor cells were noted to be strongly reactive for a HEP-PAR-1 and negative for CK7, CK20, PAX8, RCC, and thyroglobulin. His further staging with CT scans of the abdomen/pelvis on 05/12/2018 showed a large ill defined arterially enhancing mass within the right hepatic lobe measuring up to 8 cm. The primary diagnostic consideration was hepatocellular carcinoma. A solitary metastatic lesion was felt to be less likely. A 1.5 cm enhancing lesion within the inferior aspect of the spleen was felt to possibly represent splenic hematoma or hemangioma, but with metastatic lesion not excluded. The prostate was noted to be heterogeneously enlarged. CT of the chest on 05/13/2018 showed borderline enlarged right paratracheal, left paratracheal, and subcarinal lymph nodes, the largest in the subcarinal region measuring 15 mm. There were no suspicious pulmonary nodules and there was no pleural or pericardial effusion noted. A destructive expansile lytic lesion was noted to involve the right coracoid process with associated soft tissue mass. There were degenerative changes of the lower cervical spine. I had seen him initially on 06/15/2018. Given the extent of involvement in the right shoulder area, I did have him see Dr. Rapp for palliative radiation. I also reviewed options for systemic therapy, and per NCCN guidelines I had recommended an initial course of therapy with sorafenib. He began radiation to the right shoulder on 06/23/2018. He completed his course of treatment on 06/29/2018, total dose 4000 cGy. He had a very good clinical response. He began treatment with sorafenib 400 mg twice a day on 07/14/2018. He was then given additional radiation to the left scapula and to the pelvis. Treatment was completed to the left scapula on 08/18/2018 and to the pelvis on 09/01/2018, both sites to 2400 cGy. I had seen him for a followup visit on 09/01/2018. At that time he had developed headache on the right side. Initially he continued the sorafenib, but it was stopped as of 09/12/2018. An MRI of the head on 09/15/2018 showed a thin right parietal subacute subdural hematoma overlying the right parietal convexity. It extended over the right occipital and temporal lobes. It measured 5 mm in maximum dimension. There was minimal mass effect on the underlying brain parenchyma. There was no evidence of metastatic disease. During his further follow-up, he continued conservative management for the subdural hematoma, and his symptoms gradually improved. Repeat CT abdomen/pelvis on 09/27/2018 showed increased size variable decreased enhancement/attenuation of the right hepatic lobe mass. There was evidence of progressive lytic metastatic disease involving the sacrum. He was then approved for second line systemic therapy with nivolumab. He began cycle 1 on 10/12/2018. He was able to tolerate the nivolumab without any significant toxicity. He then continued treatment at 2-week intervals. As of 01/11/2019 he received his 6th cycle. His restaging CT scans on 01/14/2019 showed development of an expansile lesion of the right second rib felt to probably represent a metastatic lesion. There was no change in the treated lesion in the right lobe of the liver. There was also no change in the size of the probable right sacral metastasis. Further evaluation with PET/CT on 01/22/2018 showed a region of probable necrosis in the posterior right hepatic lobe, but with no evidence for active hepatic malignancy. There was evidence for multifocal osseous metastatic disease, including a right second rib lesion measuring 3.9 x 3.4 cm with SUV 4.0. There were additional FDG positive bone lesions in the right scapula, T3 vertebral body, left transverse process of T6, sacrum, proximal right femur, right 10th rib, and left scapula. With those findings, he was referred to Dr. Rapp, and he has been undergoing additional phase of radiation to the thoracic spine. On 03/26/2019 he was admitted to the hospital with complaints of severe pain in the throat/chest and difficulty swallowing. The symptoms were severe enough that he was having vomiting/regurgitation. Radiation esophagitis was suspected, but his Gastrografin upper GI study showed evidence of esophageal stenosis. He then had ENT consultation and he was confirmed on subsequent esophagoscopy to have a benign-appearing stricture, which was able to be dilated. There was no evidence of radiation or Kimberly esophagitis. His symptoms improved, and he was then able to continue radiation. He completed treatment to the thoracic spine on 04/04/2019, total dose 3250 cGy. I had seen him for a follow-up visit on 04/15/2019. Given a low likelihood of benefit with any further systemic therapy, he opted to just continue on symptomatic/supportive care. He declined hospice. On 05/15/2019 he was readmitted to the hospital with continued difficulty swallowing. His repeat EGD showed a small stricture in the post cricoid area. The remainder of the esophagus was unremarkable. The area of stricture was dilated with subsequent improvement in his symptoms. He was discharged home on 05/21/2019 to continue symptomatic/supportive care. He had subsequently reported a new skin rash. He was seen the following day, on 06/16/2019, and he had an obvious herpes zoster eruption on the left side. He completed a course of treatment with Valtrex. At his follow-up visit on 06/20/2019 he required an increase in the dosage of his extended release morphine, and at that time I also had him start olanzapine for persistent nausea. He continued to decline hospice. He is seen for a follow-up visit by Telehealth. He says that overall he has been feeling better. His pain has been tolerable on the higher dose of extended release morphine. His nausea is under better control with the lorazepam and olanzapine, but he still has some waves of more severe nausea. Those episodes are associated with profuse sweating. He says his energy is about the same. He is trying to make himself do more. His ECOG score is 2. His appetite has been a little bit better. His weight fluctuates up and down. He has not had fever. He does have some cough, and he reports having some difficulty with coughing due to his chest muscles. He says his breathing is fine. He has occasional episodes of pain throughout his whole chest. He has a little bit of constipation, but bowel function has been adequate. He is having hesitancy with urination and some dribbling. Lately he has been having difficulty controlling the muscles in his right leg. He has problems in particular when he is climbing stairs. He still has issues on his left side from the herpes zoster. He has headache, but not often. He occasionally has lightheadedness, usually just early in the morning. He has numbness/tingling in his arms and occasionally in his feet. Lately he has been sleeping better. Medications: Ativan 1 Tablet (of 1 mg) Oral q 4 hours PRN, Cod Liver Oil 1 Tablet (of 1000 mg) Capsule Oral daily, Cyclobenzaprine HCl 1 Tablet (of 10 mg) Oral t.i.d. PRN, Fluticasone Propionate HFA 1 (220 mcg/act) Aerosol Inhalation b.i.d., Marinol 1 Capsule (of 5 mg) Oral b.i.d., Morphine Sulfate 1 (30 mg) Tablet Oral q 4 hours PRN, Multivitamin Adult 1 Tablet Oral daily, Nitroglycerin 1 (0.4 mg) Tablet, sublingual Sublingual PRN, Ondansetron HCl 1 Tablet (of 4 mg) Oral four times a day PRN, Pantoprazole Sodium 1 Tablet (of 40 mg) Tablet, enteric coated Oral daily PRN, Valtrex 1 Tablet (of 1 g) Oral daily for 7 days, Vitamin D3 1 Tablet (of 1000 Units) Oral daily Allergies: No Known Allergies. Review of Systems: Constitutional - He is feeling better overall. His energy remains low. His appetite is a little better and weight is stable. No fever or chills. He has sweating associated with his more severe nausea episodes. ECOG score is 2, ENMT - He has sinus drainage. He has a sore mouth, which is new. No sore throat or difficulty swallowing. He does have a tickle in his throat at times, Hematologic/Lymphatic - No abnormal bruising or bleeding, Respiratory - No shortness of breath. He sometimes has cough, but he has difficulty coughing due to his chest muscles. No pleuritic pain or hemoptysis, Cardiovascular - He has occasional episodes of pain in his whole chest area. No palpitations, Gastrointestinal - His nausea is improved with the lorazepam and with the Zyprexa. No vomiting. No heartburn or acid reflux. No diarrhea or constipation. No blood in the stool or black stools, Genitourinary (M) - No dysuria or hematuria. No urinary frequency. No urgency. He has some hesitancy and some dribbling, Musculoskeletal - His pain is tolerable with his current pain regimen, Integumentary - No skin complications, Neurologic - No headache. He has had some dizziness in the mornings. He has some numbness and tingling in his arms and occasionally in his feet. He is having new difficulty with muscle control of his right leg, Psychiatric - He has anxiety/depression. Lately he has been sleeping better. Impression: 1. Patient with hepatocellular carcinoma. By clinical evaluation his disease is stage IVB (T1, NX, M1) with biopsy proven metastatic involvement in the right shoulder. 2. There is also a possible metastatic lesion in the spleen by CT scan. His other medical illnesses include: 3. Hypertension. 4. Hyperlipidemia. 5. Type II diabetes with peripheral neuropathy. 6. Coronary artery disease with history of non-ST elevation myocardial infarction in August 2017. 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 7. GERD/peptic ulcer disease. 8. Obstructive sleep apnea. 9. Degenerative arthritis/degenerative disease of the spine. 10. Gout. 11. Nephrolithiasis. 12. Vitamin D deficiency. 13. Posttraumatic stress disorder. Due to symptomatic involvement in the right shoulder, he initially was treated with palliative radiation to that area. He completed treatment on 06/29/2018, total dose 4000 cGy. He had a very good clinical response. He then began systemic therapy with sorafenib 400 mg twice a day on 07/14/2018. He has now completed additional palliative radiation to the left scapula and to the pelvis, both sites to 2400 cGy. Initially he appeared to be tolerating the sorafenib with acceptable toxicity. However, as of his follow-up visit on 09/01/2018 he had developed headache on the right side. This continued to worsen, and the sorafenib was then stopped as of 09/12/2018. MRA of the head on 09/15/2018 showed evidence of a subacute right subdural hematoma. He was taken off Plavix. It was otherwise been managed conservatively, and it subsequently improved. During follow-up he did show some decline in performance status. His repeat CT scans on 09/27/2018 showed variable appearance to the liver, but there likely was some disease progression in both the liver and bone. On 10/12/2018 he began second line therapy with nivolumab 240 mg by IV infusion every 2 weeks. As of 01/11/2019 he had completed 6 cycles of treatment. His restaging CT and subsequent PET/CT appeared to show evidence of progression of the bony metastatic disease, with the most significant site being in the anterior right second rib. He had initially continued his immunotherapy, but he then had worsening back pain and development of neurologic symptoms in the left arm, and he was confirmed by MRI to have further disease progression in the thoracic spine. The immunotherapy was again put on hold, and he has had underwent palliative radiation to the thoracic spine. He completed treatment on 04/04/2019, total dose 3250 cGy. During that time he required hospital admission for severe dysphasia, but that was determined to be due to a benign esophageal stricture, and his symptoms are improved following an esophageal dilatation procedure. I had seen him for a follow-up visit on 04/15/2019. At that point his pain was being managed adequately with immediate release oxycodone. He had persistent neurologic symptoms in the left arm, and he still had some difficulty swallowing. Given the low likelihood of benefit with further systemic therapy, he opted to just continue with symptomatic/supportive care measures. He declined hospice. During subsequent follow-up his pain worsened and he had continued decline in performance status. He required admission to the hospital for recurrence of dysphasia. His swallowing did show some improvement after repeat EGD and dilatation procedure. His pain management, though, had remained problematic, in part due to poor tolerance for opiate pain medication. He was having significant depression, management of which also was problematic due to poor tolerance for medication. He also has continued to have persistent nausea. In June he completed a course of treatment with Valtrex for herpes zoster. At that time he also required an increase in the dosage of his extended release morphine I also added olanzapine for his nausea. Since then he has been feeling somewhat better, though he still reports occasional waves of nausea and he still has fairly limited activity tolerance. He has new neurologic symptoms in his right leg. Plan: Due to his new neurologic symptoms, he will be scheduled for repeat lab studies and repeat brain MRI. He will otherwise continue with symptomatic/supportive care measures. At least for now his medications will remain the same. The duration of the Telehealth visit was 20 minutes. Signed By: Tyler Seha M.D. <<Signature on File>>
[2019-08-05 11:23] LABS: Basophils # 0.1 10^3/uL (0.0-0.1); Basophils % 1.2 %; Eosinophils # 0.3 10^3/uL (0.0-0.8); Hematocrit 31.9 % (42.0-52.0); Hemoglobin 9.6 g/dL (11.7-16.6); Lymphocytes % 17.3 %; Mean Corpuscular HGB Conc 30.1 g/dL (30.0-36.0); Mean Corpuscular Hemoglobin 29.8 pg (28.0-34.0); Mean Corpuscular Volume 99.1 fL (80-94); Mean Platelet Volume 9.6 fL (7.4-10.4); Monocytes # 0.5 10^3/uL (0.2-0.9); Monocytes % 8.3 %; Neutrophils # 3.9 10^3/uL (1.8-7.7); Nucleated Red Blood Cells % 0 %; Platelet Count 364 10^3/cmm (130-400); Red Blood Count 3.22 10^6/uL (4.1-5.3); Red Cell Distribution Width 16.6 % (12.1-15.1); White Blood Count 5.8 10^3/uL (4.0-10.0)
[2019-08-05 13:09] LABS: Alanine Aminotransferase 31 U/L (0-41); Albumin Level 3.9 g/dL (3.5-5.2); Alkaline Phosphatase 177 IU/L (40-130); Anion Gap 17.9 (5-19); Aspartate Amino Transferase 24 U/L (0-40); Blood Urea Nitrogen 22 mg/dL (8-23); Calcium 9.5 mg/dL (8.5-10.5); Carbon Dioxide 23 mmol/L (22-29); Chloride 105 mmol/L (98-107); Globulin 3.1 g/dL (1.3-4.6); Glucose 115 mg/dL (65-115); Osmolality Calculated 290 mOsm/kg (285-295); Potassium 4.9 mmol/L (3.5-5.1); Sodium 141 mmol/L (136-145); Total Bilirubin 0.4 mg/dL (0.15-1.2)
--- NOTE | 2019-08-08 10:30 | MR_ITS ---
WS: [id number] MRI HEAD WITHOUT CONTRAST TECHNIQUE: Sagittal T1, T2 axial, T2 axial FLAIR, axial and coronal T1 images, axial susceptibility w eighted imaging, axial diffusion weighted images, and coronal T2 images were obtained. Contrast not a dministered due to renal insufficiency. CLINICAL INFORMATION: HEPATOCELLULAR CANCER, RIGHT LEG WEAKNESS COMPARISON: CT October 08, 2018 FINDINGS: No evidence of restricted diffusion to suggest acute ischemia. Ventricular system and basal cisterns are patent. Moderate small vessel changes with moderate parenchymal volume loss. Small vessel changes in the twin. Normal vascular flow voids at the skull base. No extra-axial fluid collections. Chronic lacunar infarcts right twin. Previously described right frontoparietal subdural hematoma has resolved. No new subdural hematoma. N o hemosiderin on the susceptibly weighted images. Normal optic chiasm and pituitary infundibulum. Mod erate symmetric atrophy involving the temporal lobes and hippocampal formations. MR/MR head wo con* [id number] IMPRESSION: 1. No evidence of restricted diffusion to suggest acute ischemia. 2. Moderate small vessel changes with moderate parenchymal volume loss. 3. Moderate symmetric atrophy involving the temporal lobes and hippocampal for mations. 4. Chronic lacunar infarct right twin. 5. Previously described right frontoparietal subdural hematoma has resolved.
== END 2019-08-11 23:59 | disposition home or self-care (01) ==
LOC: RADWPI 10:25
PROVIDERS: Family Provider Family Medicine; PCP Family Medicine; Visit Provider Internal Medicine Medical Oncology
DX: C22.0 Liver cell carcinoma (principal); C79.51 Secondary malignant neoplasm of bone; R20.2 Paresthesia of skin; R20.0 Anesthesia of skin; R29.818 Other symptoms and signs involving the nervous system; G89.3 Neoplasm related pain (acute) (chronic); Z79.891 Long term (current) use of opiate analgesic; I10 Essential (primary) hypertension; E78.5 Hyperlipidemia, unspecified; E11.42 Type 2 diabetes mellitus with diabetic polyneuropathy; I25.10 Atherosclerotic heart disease of native coronary artery without angina pectoris; I25.2 Old myocardial infarction; K21.9 Gastro-esophageal reflux disease without esophagitis; G47.33 Obstructive sleep apnea (adult) (pediatric); M19.90 Unspecified osteoarthritis, unspecified site; M48.9 Spondylopathy, unspecified; E55.9 Vitamin D deficiency, unspecified; F43.10 Post-traumatic stress disorder, unspecified; N20.0 Calculus of kidney; Z92.3 Personal history of irradiation
CPT/HCPCS: 70551; 80053; 85025

== ENCOUNTER → 2019-08-31 15:03 | Outpatient (BNVA) | payer OTHER, SELFPAY | PROVIDERS: PCP Family Medicine; Visit Provider Specialist | DX: R29.90 Unspecified symptoms and signs involving the nervous system (principal); C22.0 Liver cell carcinoma; C79.51 Secondary malignant neoplasm of bone; M54.12 Radiculopathy, cervical region; Z87.891 Personal history of nicotine dependence | CPT/HCPCS: 99214 ==

== ENCOUNTER 2019-09-08 06:46 | Outpatient (RCR) | payer OTHER, SELFPAY ==
[2019-08-25 13:24] LABS: Alanine Aminotransferase 37 U/L (0-41); Alkaline Phosphatase 169 IU/L (40-130); Amylase 79 U/L (28-100); Anion Gap 18.2 (5-19); Aspartate Amino Transferase 23 U/L (0-40); Blood Urea Nitrogen 19 mg/dL (8-23); Calcium 8.8 mg/dL (8.5-10.5); Carbon Dioxide 22 mmol/L (22-29); Chloride 100 mmol/L (98-107); Globulin 3.2 g/dL (1.3-4.6); Glucose 118 mg/dL (65-115); Lipase 61 U/L (13-60); Osmolality Calculated 278 mOsm/kg (285-295); Potassium 5.2 mmol/L (3.5-5.1); Sodium 135 mmol/L (136-145); Total Bilirubin 0.5 mg/dL (0.15-1.2); Total Protein 7.2 g/dL (6.6-8.7)
[2019-08-25 13:50] LABS: Basophils # 0.1 10^3/uL (0.0-0.1); Basophils % 0.9 %; Eosinophils % 0.3 %; Hematocrit 34.8 % (42.0-52.0); Hemoglobin 10.9 g/dL (11.7-16.6); Lymphocytes # 0.5 10^3/uL (0.8-4.8); Lymphocytes % 7.3 %; Mean Corpuscular HGB Conc 31.3 g/dL (30.0-36.0); Mean Corpuscular Hemoglobin 30.3 pg (28.0-34.0); Mean Corpuscular Volume 96.7 fL (80-94); Mean Platelet Volume 9.1 fL (7.4-10.4); Monocytes # 0.4 10^3/uL (0.2-0.9); Monocytes % 5.3 %; Neutrophils # 5.6 10^3/uL (1.8-7.7); Nucleated Red Blood Cells % 0 %; Platelet Count 319 10^3/cmm (130-400); Red Cell Distribution Width 15.8 % (12.1-15.1); White Blood Count 6.6 10^3/uL (4.0-10.0)
[2019-08-25] MEDS: OLANZapine 10 mg TABLET 5 MG PO (15:45)
[2019-08-25] MEDS: pantoprazole 40 mg SDV IV (15:47)
[2019-08-25] MEDS: ondansetron 2 mg/ML SDV 2 mL 8 MG IV (15:53)
[2019-08-25] MEDS: sodium chloride 0.9% 1,000 ML 1000 ML IV (16:10)
[2019-08-25 21:30] LABS: Blood Urea Nitrogen 19 mg/dL (8-23)
[2019-08-26 12:26] LABS: Aldolase 2.8 U/L (< OR = 8.1)
--- NOTE | 2019-08-29 13:53 | ONC FU_ITS ---
[facility] Patient Note Patient: Victoriano Resendiz Unit #: [id number]: 1950 Dictated By: Madison DomingoDate of Visit: August 25, 2019 Onc MED Follow-Up/Prog Note Chief Complaint: Hepatocellular carcinoma. History of Present Illness: Mr Resendiz is a 69 year-old man with metastatic hepatocellular carcinoma. He has multiple medical illnesses including hypertension, hyperlipidemia, type II diabetes with peripheral neuropathy, coronary artery disease, obstructive sleep apnea, GERD/peptic ulcer disease, degenerative arthritis/degenerative disease of the spine, nephrolithiasis, gout, vitamin D deficiency, and posttraumatic stress disorder. In August 2017 he was admitted to the hospital with non-ST elevation myocardial infarction. At the time he underwent emergent coronary angioplasty for obstructive disease in the mid LAD and first diagonal branch, both of which were noted to contain thrombus. He did not require stent placement. 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 His CT angiogram at that time showed a moderate-sized pericardial effusion, but with no evidence for aortic aneurysm or dissection. Also noted on that study was fatty infiltration of the liver and a 3.2 cm mass in the right lobe of the liver, felt to be indeterminate. Further evaluation with CT abdomen/pelvis on 10/12/2017 showed a 3.7 x 3.8 cm mass involving the right lobe of the liver. It was felt to appear more consistent with a hemangioma then other etiologies. A 3 month interval follow-up was recommended. He had then presented in the fall with left arm pain. It improved with physical therapy. He had then developed worsening pain in his right shoulder and arm. X-rays of the right shoulder showed moderate degenerative changes. MRI showed a mass lesion at the distal aspect of the coracoid process with bony destruction and a soft tissue component which was noted to protrude anteriorly. The appearance was suspicious for malignancy. He had orthopedic surgery consultation with Dr. Hemanth Santos on 04/21/2018. Subsequent needle biopsy of the right shoulder soft tissue mass on 05/12/2018 showed metastatic carcinoma consistent with an hepatocellular primary. The tumor cells were noted to be strongly reactive for a HEP-PAR-1 and negative for CK7, CK20, PAX8, RCC, and thyroglobulin. His further staging with CT scans of the abdomen/pelvis on 05/12/2018 showed a large ill defined arterially enhancing mass within the right hepatic lobe measuring up to 8 cm. The primary diagnostic consideration was hepatocellular carcinoma. A solitary metastatic lesion was felt to be less likely. A 1.5 cm enhancing lesion within the inferior aspect of the spleen was felt to possibly represent splenic hematoma or hemangioma, but with metastatic lesion not excluded. The prostate was noted to be heterogeneously enlarged. CT of the chest on 05/13/2018 showed borderline enlarged right paratracheal, left paratracheal, and subcarinal lymph nodes, the largest in the subcarinal region measuring 15 mm. There were no suspicious pulmonary nodules and there was no pleural or pericardial effusion noted. A destructive expansile lytic lesion was noted to involve the right coracoid process with associated soft tissue mass. There were degenerative changes of the lower cervical spine. Dr Shea had seen him initially on 06/15/2018. Given the extent of involvement in the right shoulder area, Dr Shea did have him see Dr. Rapp for palliative radiation. Dr Shea also reviewed options for systemic therapy, and per NCCN guidelines had recommended an initial course of therapy with sorafenib. He began radiation to the right shoulder on 06/23/2018. He completed his course of treatment on 06/29/2018, total dose 4000 cGy. He had a very good clinical response. He began treatment with sorafenib 400 mg twice a day on 07/14/2018. He was then given additional radiation to the left scapula and to the pelvis. Treatment was completed to the left scapula on 08/18/2018 and to the pelvis on 09/01/2018, both sites to [address] Shea had seen him for a followup visit on 09/01/2018. At that time he had developed headache on the right side. Initially he continued the sorafenib, but it was stopped as of 09/12/2018. An MRI of the head on 09/15/2018 showed a thin right parietal subacute subdural hematoma overlying the right parietal convexity. It extended over the right occipital and temporal lobes. It measured 5 mm in maximum dimension. There was minimal mass effect on the underlying brain parenchyma. There was no evidence of metastatic disease. During his further follow-up, he continued conservative management for the subdural hematoma, and his symptoms gradually improved. Repeat CT abdomen/pelvis on 09/27/2018 showed increased size variable decreased enhancement/attenuation of the right hepatic lobe mass. There was evidence of progressive lytic metastatic disease involving the sacrum. He was then approved for second line systemic therapy with nivolumab. He began cycle 1 on 10/12/2018. He was able to tolerate the nivolumab without any significant toxicity. He then continued treatment at 2-week intervals. As of 01/11/2019 he received his 6th cycle. His restaging CT scans on 01/14/2019 showed development of an expansile lesion of the right second rib felt to probably represent a metastatic lesion. There was no change in the treated lesion in the right lobe of the liver. There was also no change in the size of the probable right sacral metastasis. Further evaluation with PET/CT on 01/22/2018 showed a region of probable necrosis in the posterior right hepatic lobe, but with no evidence for active hepatic malignancy. There was evidence for multifocal osseous metastatic disease, including a right second rib lesion measuring 3.9 x 3.4 cm with SUV 4.0. There were additional FDG positive bone lesions in the right scapula, T3 vertebral body, left transverse process of T6, sacrum, proximal right femur, right 10th rib, and left scapula. With those findings, he was referred to Dr. Rapp, and he has been undergoing additional phase of radiation to the thoracic spine. On 03/26/2019 he was admitted to the hospital with complaints of severe pain in the throat/chest and difficulty swallowing. The symptoms were severe enough that he was having vomiting/regurgitation. Radiation esophagitis was suspected, but his Gastrografin upper GI study showed evidence of esophageal stenosis. He then had ENT consultation and he was confirmed on subsequent esophagoscopy to have a benign-appearing stricture, which was able to be dilated. There was no evidence of radiation or Kimberly esophagitis. His symptoms improved, and he was then able to continue radiation. He completed treatment to the thoracic spine on 04/04/2019, total dose [address] Shea had seen him for a follow-up visit on 04/15/2019. Given a low likelihood of benefit with any further systemic therapy, he opted to just continue on symptomatic/supportive care. He declined hospice. On 05/15/2019 he was readmitted to the hospital with continued difficulty swallowing. His repeat EGD showed a small stricture in the post cricoid area. The remainder of the esophagus was unremarkable. The area of stricture was dilated with subsequent improvement in his symptoms. He was discharged home on 05/21/2019 to continue symptomatic/supportive care. He had subsequently reported a new skin rash. He was seen the following day, on 06/16/2019, and he had an obvious herpes zoster eruption on the left side. He completed a course of treatment with Valtrex. At his follow-up visit on 06/20/2019 he required an increase in the dosage of his extended release morphine, and at that time Dr Shea also had him start olanzapine for persistent nausea. He continued to decline hospice. He was seen for a follow-up visit by Telehealth in July 2019. He stated at that time, overall he has been feeling better. His pain had been tolerable on the higher dose of extended release morphine. His nausea was under better control with the lorazepam and olanzapine, but he still had some waves of more severe nausea. Those episodes are associated with profuse sweating. Follow-up MRI of the brain from was negative for recurrent disease. No contrast due to renal insufficiency. The previously described right frontal parietal subdural hematoma has resolved. There was no new findings. Moderately metabolic multifactorial osseous metastatic disease noted. An index in the right second rib measured 3.9 x 3.4 with an SUV of 4.0. Multiple other similar clinic FDG positive lesions were noted in the right scapula, T3, left transverse process of T6, sacrum, proximal right femur, right 10th rib and left scapula. He states his pain is well controlled currently and does not need any pain adjustments at this time. There were no incidental findings in the abdominal area of the scan. Mr. Resendiz is here today for unscheduled follow-up. He called in with complaints of persistent nausea and now vomiting increased pain and overall poor performance status. He states the nausea vomiting is been pretty persistent over the weekend. He is also had some diarrhea. He denies any fever or chills. He denies any he does not feel that is the cause of his. He states his been having some more abdominal discomfort but cannot really localize it he denies any other edema. He states his breathing is about the same. He states he still not as good as he would like it to be but definitely not significantly worse. He is trying to remain active although he tires frequently and has to rest frequently as well. He continues to live alone but does have assistance of a significant other who is in and out of the house. He feels he is tolerating this well at this time. He is not interested in pursuing jail living facilities. He continues to decline hospice referrals as well. We working okay right now. His biggest concern is the spontaneous vomiting and not been able to keep foods down. He states his appetite is relatively poor but he can eat when he is not feeling queasy. He states he has no idea what triggers the nausea or vomiting he continues to have some intermittent neuropathy symptoms but states those are no worse than what they have been in the past. He denies any rashes. He has had no chest pain or palpitations. His ECOG is 2. Past Medical History: Coronary artery disease Degenerative arthritis Degenerative disease of the spine GERD/peptic ulcer disease Gout Hyperlipidemia Hypertension Obstructive sleep apnea Peripheral neuropathy Post traumatic stress disorder Type II diabetes Vitamin D deficiency Past Surgical History: Tonsillectomy Cataract excision in 2019 Needle biopsy of right shoulder soft tissue mass in 2019 EGD and colonoscopy in 2018 Coronary angioplasty without stent placement in 2018 Bilateral carpal tunnel release in 2016 Allergies: No Known Allergies. Medications: Amitiza 1 Capsule (of 8 mcg) Oral b.i.d. Ativan 1 Tablet (of 1 mg) Oral q 4 hours PRN Cod Liver Oil 1 Tablet (of 1000 mg) Capsule Oral daily Cyclobenzaprine HCl 1 Tablet (of 10 mg) Oral t.i.d. PRN Docusate Sodium Tablet Oral PRN Fluticasone Propionate HFA 1 (220 mcg/act) Aerosol Inhalation b.i.d. Marinol 1 Capsule (of 5 mg) Oral b.i.d. Morphine Sulfate 1 - 2 Tablet (of 30 mg) Oral q 4 hours PRN Morphine Sulfate ER 1 Capsule (of 60 mg) Capsule SR 24 HR Oral q 12 hours Multivitamin Adult 1 Tablet Oral daily Nitroglycerin 1 (0.4 mg) Tablet, sublingual Sublingual PRN Ondansetron HCl 1 Tablet (of 4 mg) Oral four times a day PRN Pantoprazole Sodium 1 Tablet (of 40 mg) Tablet, enteric coated Oral daily PRN predniSONE Tablet Oral Vitamin D3 1 Tablet (of 1000 Units) Oral daily Family History: Mr. Resendiz's mother at age 81: emphysema. Mr. Resendiz's father at age 81: coronary artery disease, and myocardial infarction. Mr. Resendiz has 2 brothers: 2 alive. He has 1 sister who is alive. Father had coronary artery disease and at age 81. Mother with emphysema, also at age 81. Three siblings are in good health. Social History: Mr. Resendiz is and he is retired. Mr. Resendiz quit smoking 48 years ago but had smoked 1.0 pack/day for 5 years. He drinks occasionally. He had smoked heavily for about 5 years. He quit smoking in 1970. He has had at least moderate alcohol use, but not daily. He has a history of agent orange exposure during service. Review Of Symptoms: Constitutional Denies fevers, chills, night sweats. Fatigue. Allergic/Immunologic No reactions. Eyes Denies significant visual changes. No diplopia. No amaurosis. Vision improved dramatically since bilateral cataract surgery. Conjunctiva are clear. ENMT Denies changes in hearing, sore throat, mouth sores, difficulty or changes in swallowing ability, and/or sinus drainage. Hematologic/Lymphatic Denies easy bruising or bleeding. The patient denies any tender or palpable lymph nodes. Respiratory Denies dyspnea on exertion, chest pain, cough or hemoptysis. Denies orthopnea. Cardiovascular Denies anginal chest pain, palpitations or orthopnea. Right lower rib area pain. Gastrointestinal Denies diarrhea, GI bleeding. Denies change in bowel habits and/or stool color, no heartburn or early satiety. Has had increased constipation and the Gemvara is not working for him. Genitourinary (M) Denies hematuria, dysuria, increased frequency, urgency, hesitancy or incontinence. Musculoskeletal back pain and abdominal pain as above. Integumentary Denies chronic rashes, inflammation, ulcerations or skin changes. Neurologic Denies headache, blurred vision, and no areas of focal weakness or numbness. Normal shuffled gait. No sensory problems. Psychiatric Denies insomnia, significant depression, marco a or mood swings. Vital Signs: Performed on August 25, 2019 14:33 Height - 69.00 in Weight - 129.6 lbs (LOW) BSA - 1.72 sq.m BMI - 19.14 Temperature - 98.0 F (LOW) Pulse - 81 /min Respiration - 17 /min BP - 140/70 mm(hg) O2 Sat - 100 % Pain - 6,2 - Ambulatory/capable of all self-care, unable to perform any work activities. Up and about more than 50% of waking hours. (ECOG) Physical Examination: Constitutional Alert, oriented, no acute distress. Skin pale pink, warm and dry. Obviously does not feel well. Head Normocephalic; atraumatic. Eyes Conjunctivae and sclerae are clear and without icterus. Pupils are reactive and equal. ENMT No oral exudates, ulcers, masses, thrush or mucositis. Oropharynx clear. Tongue normal. Neck Supple without masses or thyromegaly. No jugular venous distension. Hematologic/Lymphatic No petechiae or purpura. No tender or palpable lymph nodes in the cervical or supraclavicular areas. Respiratory Lungs are clear to auscultation without rhonchi or wheezing. Cardiovascular Regular rate and rhythm of heart without murmurs,clicks, gallops or rubs. Abdomen Non-tender, non-distended, no masses, ascites. Good bowel sounds noted in all quads. No guarding or rebound tenderness. No pulsatile masses. Back/Spine Non-tender to palpation. Extremities No visible deformities, no cyanosis, clubbing or edema. Musculoskeletal No tenderness or swelling, normal range of motion without obvious weakness. Integumentary No rashes or lesions. Neurologic No sensory or motor deficits, normal cerebellar function, normal gait. Psychiatric Alert and oriented times three. Coherent speech. Verbalizes understanding of our discussions today. Laboratory:Test performed on August 25, 2019 17:11 BUN 19 mg/dL Test performed on August 25, 2019 12:40 Aldolase 2.8 U/L Amylase 79 U/L Sodium 135 mmol/L Potassium 5.2 mmol/L Chloride 100 mmol/L CO2 22 mmol/L Anion Gap 18.2 Creatinine 2.3 mg/dL Cr Clearance (Est) 24.49 mL/min Glucose 118 mg/dL Calcium 8.8 mg/dL Protein, Total 7.2 g/dL Albumin 4.0 g/dL Globulin 3.2 g/dL Bilirubin, Total 0.5 mg/dL ALT (SGPT) 37 U/L AST (SGOT) 23 U/L Alkaline Phosphatase 169 IU/L WBC 6.6 10 3/uL RBC 3.60 10 6/uL HGB 10.9 g/dL HCT 34.8 % MCV 96.7 fL MCH 30.3 pg MCHC 31.3 g/dL RDW 15.8 % Platelet Count 319 10 3/cmm MPV 9.1 fL Neutrophils 5.6 10 3/uL Lymphocytes 0.5 10 3/uL Monocytes 0.4 10 3/uL Eosinophils 0.0 10 3/uL Basophils 0.1 10 3/uL Neutrophil % 86.0 % Lymphocyte % 7.3 % Monocyte % 5.3 % Eosinophil % 0.3 % Basophils % 0.9 % Impression: , ANC 1. Patient with hepatocellular carcinoma. By clinical evaluation his disease is stage IVB (T1, NX, M1) with biopsy proven metastatic involvement in the right shoulder. 2. There is also a possible metastatic lesion in the spleen by CT scan. His other medical illnesses include: 3. Hypertension. 4. Hyperlipidemia. 5. Type II diabetes with peripheral neuropathy. 6. Coronary artery disease with history of non-ST elevation myocardial infarction in August 2017. 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 7. GERD/peptic ulcer disease. 8. Obstructive sleep apnea. 9. Degenerative arthritis/degenerative disease of the spine. 10. Gout. 11. Nephrolithiasis. 12. Vitamin D deficiency. 13. Posttraumatic stress disorder. Due to symptomatic involvement in the right shoulder, he initially was treated with palliative radiation to that area. He completed treatment on 06/29/2018, total dose 4000 cGy. He had a very good clinical response. He then began systemic therapy with sorafenib 400 mg twice a day on 07/14/2018. He has now completed additional palliative radiation to the left scapula and to the pelvis, both sites to 2400 cGy. Initially he appeared to be tolerating the sorafenib with acceptable toxicity. However, as of his follow-up visit on 09/01/2018 he had developed headache on the right side. This continued to worsen, and the sorafenib was then stopped as of 09/12/2018. MRA of the head on 09/15/2018 showed evidence of a subacute right subdural hematoma. He was taken off Plavix. It was otherwise been managed conservatively, and it subsequently improved. During follow-up he did show some decline in performance status. His repeat CT scans on 09/27/2018 showed variable appearance to the liver, but there likely was some disease progression in both the liver and bone. On 10/12/2018 he began second line therapy with nivolumab 240 mg by IV infusion every 2 weeks. As of 01/11/2019 he had completed 6 cycles of treatment. His restaging CT and subsequent PET/CT appeared to show evidence of progression of the bony metastatic disease, with the most significant site being in the anterior right second rib. He had initially continued his immunotherapy, but he then had worsening back pain and development of neurologic symptoms in the left arm, and he was confirmed by MRI to have further disease progression in the thoracic spine. The immunotherapy was again put on hold, and he has had underwent palliative radiation to the thoracic spine. He completed treatment on 04/04/2019, total dose 3250 cGy. During that time he required hospital admission for severe dysphasia, but that was determined to be due to a benign esophageal stricture, and his symptoms are improved following an esophageal dilatation procedure. I had seen him for a follow-up visit on 04/15/2019. At that point his pain was being managed adequately with immediate release oxycodone. He had persistent neurologic symptoms in the left arm, and he still had some difficulty swallowing. Given the low likelihood of benefit with further systemic therapy, he opted to just continue with symptomatic/supportive care measures. He declined hospice. During subsequent follow-up his pain worsened and he had continued decline in performance status. He required admission to the hospital for recurrence of dysphasia. His swallowing did show some improvement after repeat EGD and dilatation procedure. His pain management, though, had remained problematic, in part due to poor tolerance for opiate pain medication. He was having significant depression, management of which also was problematic due to poor tolerance for medication. He also has continued to have persistent nausea. In June he completed a course of treatment with Valtrex for herpes zoster. At that time he also required an increase in the dosage of his extended release morphine Dr Shea also added olanzapine for his nausea. Since then he has been feeling somewhat better, though he still reports occasional waves of nausea and he still has fairly limited activity tolerance. He has new neurologic symptoms in his right leg. Plan: 1. Hydration and antiemetics today. 2. Labs drawn today do not rrveal any obvious etiology of the persisntet n/v. His Hgb is 10.9, platelets 319,000, ANC is 5600. Potassium 5.2 creatinine 2.3 ( was 2.2 last week and 1.1 2 months before that) LFTs are normal and alk phos is improved at 169. 3. We will plan to hydrate him today then recheck his BUN/creatinine stat to determine if he could have contrast with the CT of the abdomen and pelvis to be requested for this persistent nausea complaint. 4. We have given him a prescription for Zyprexa to try to see this will help with his depression, nausea, appetite. 5. Follow-up MRI of the brain from was negative for recurrent disease. No contrast due to renal insufficiency. The previously described right frontal parietal subdural hematoma has resolved. There was no new findings. Moderately metabolic multifactorial osseous metastatic disease noted. An index in the right second rib measured 3.9 x 3.4 with an SUV of 4.0. Multiple other similar clinic FDG positive lesions were noted in the right scapula, T3, left transverse process of T6, sacrum, proximal right femur, right 10th rib and left scapula. He states his pain is well controlled currently and does not need any pain adjustments at this time. There were no incidental findings in the abdominal area of the scan. 6. Will proceed with CT of the abdomen/pelvis for evaluation of the unexplaine nausea/vomiting. His weight is down to 137.8 today compared to 151.2 on 08/05/2019. He will probably not be able to have contrast due to his renal function. We can hydrate him pre and post Ct if needed. 7. He was given a prescription for Symporic 0.2 mg for opioid induced [facility] 8. REfilled MS Contin to 130 mg ( 100 mg and 30 mg tablets) to take 130 mg every 12 hours to attempt to control pain in his abdomen. 9. Repeat creatinine post hydration was 2.2 so any imaging will need to be noncontrast. 10. We will see him back after the imaging or before if questions or problems xavier. Signed By: Madison Domingo-ZOE MORALES MD <<Signature on File>>
--- NOTE | 2019-09-07 13:04 | CT_ITS ---
WS: [id number] CT CHEST, ABDOMEN, AND PELVIS TECHNIQUE: Noncontrast CT of the chest, abdomen, and pelvis with coronal and sagittal reformatted mary beth ges. CLINICAL INFORMATION: LIVER CELL CANCER, NAUSEA/VOMITING, RENAL INSUFFICIENCY COMPARISON: CTA chest February 25, 2019, PET/CT January 22, 2019, CT chest abdomen pelvis January 14, 2019, September 27, 2018, May 12, 2018, January 08, 2018, October 08, 2017 DLP: 1637.[address] scans at [facility] use at least one of these dose optimization techniques: automat ed exposure control; mA and/or kV adjustment per patient size (includes targeted exams where dose is matched to clinical indication); or iterative reconstruction. CT CHEST: Again seen is the destructive soft tissue mass involving the right second rib measuring 4.6 x 4.9 cm enlarged from previous CTA chest February where it measured 4.5 x 3.7 cm. No mediastinal or hilar lymphadenopathy. No acute pulmonary infiltrates. Tiny noncalcified nodule in the right upper lobe laterally measuring 2 mm which is stable from February 25, 2019. Incidental fibrosis in the right lower lobe medially. No axillary lymphadenopathy. No mediastinal or hilar lymphadenopathy. Aortic calcification. Coronary calcification. Normal endobronchial tree. Stable right anterior scapula metastatic lesion. Additional similar-appearing lytic metastatic lesion s involving right T3 vertebral body and right T6 proximal rib. Small esophageal hiatal hernia. CT ABDOMEN AND PELVIS: Large right hepatic lesion measures 14.3 x 10.4 cm with localized mass effect. This is increased sinc e January 14, 2019 where it measured approximately 11.7 x 5.8 cm. This lesion measured approximately 13.3 x 8.5 cm on the prior noncontrast study May 15, 2019. Enhancement cannot be evaluated today on this noncontrast study Noncontrast pancreas and spleen are normal. Metastatic left adrenal nodule measuring 2.4 cm increased in size. Additional smaller left adrenal nodule also increased in size measuring 1.1 cm today Normal caliber abdominal aorta. Aortic calcification. Enlarged prostate measuring 4.9 CM. Sigmoid diverticu losis. No periaortic lymphadenopathy. No inguinal lymphadenopathy. Grade 1 anterolisthesis L5 on S1 w ith spondylolysis. Previously described metastatic lesions in the sacrum and proximal right femur are stable in appearance. Renal cortical atrophy. No hydronephrosis. CT/CT chest abd pel wo con IMPRESSION: 1. Interval increase in size of the destructive soft tissue mass involving the right second rib described above. 2. No mediastinal or hilar lymphadenopathy. 3. Tiny faint noncalcified 2 mm nodule right upper lobe laterally is unchanged . 4. Stable right anterior scapula metastatic lesion. Additional stable metasta tic lesions involving the T3 vertebral body and right T6 rib 5. Right hepatic mass is increased in size today measuring 14.3 x 10.4 cm comp ared to 11.7 x 5.8 cm previous. 6. Metastatic lesion left adrenal gland is increased in size today measuring a pproximately 2.4 cm compared to 1.4 cm previous on 05/15/19. Additional smaller l eft adrenal nodule also increased in size measuring 1.1cm today 7. Multiple lytic osseous metastatic lesion from the sacrum appear relatively stable. 8. Stable grade 1 anterolisthesis L5 on S1 with spondylolysis. 9. Enlarged prostate measuring 5.1 cm.
--- NOTE | 2019-09-09 07:38 | ONC FU_ITS ---
Dr. Shea Patient Follow-Up Note Patient: Victoriano Resendiz Unit #: [id number]: [id number] Dicatated By: Tyler Shea M.D.Date of Visit:September 08, 2019 Onc Med Follow-up/Prog Note Chief Complaint: Hepatocellular carcinoma. History of Present Illness: This is a 69 year-old man with metastatic hepatocellular carcinoma. He has multiple medical illnesses including hypertension, hyperlipidemia, type II diabetes with peripheral neuropathy, coronary artery disease, obstructive sleep apnea, GERD/peptic ulcer disease, degenerative arthritis/degenerative disease of the spine, nephrolithiasis, gout, vitamin D deficiency, and posttraumatic stress disorder. In August 2017 he was admitted to the hospital with non-ST elevation myocardial infarction. At the time he underwent emergent coronary angioplasty for obstructive disease in the mid LAD and first diagonal branch, both of which were noted to contain thrombus. He did not require stent placement. 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 His CT angiogram at that time showed a moderate-sized pericardial effusion, but with no evidence for aortic aneurysm or dissection. Also noted on that study was fatty infiltration of the liver and a 3.2 cm mass in the right lobe of the liver, felt to be indeterminate. Further evaluation with CT abdomen/pelvis on 10/12/2017 showed a 3.7 x 3.8 cm mass involving the right lobe of the liver. It was felt to appear more consistent with a hemangioma then other etiologies. A 3 month interval follow-up was recommended. He had then presented in the fall with left arm pain. It improved with physical therapy. He had then developed worsening pain in his right shoulder and arm. X-rays of the right shoulder showed moderate degenerative changes. MRI showed a mass lesion at the distal aspect of the coracoid process with bony destruction and a soft tissue component which was noted to protrude anteriorly. The appearance was suspicious for malignancy. He had orthopedic surgery consultation with Dr. Hemanth Santos on 04/21/2018. Subsequent needle biopsy of the right shoulder soft tissue mass on 05/12/2018 showed metastatic carcinoma consistent with an hepatocellular primary. The tumor cells were noted to be strongly reactive for a HEP-PAR-1 and negative for CK7, CK20, PAX8, RCC, and thyroglobulin. His further staging with CT scans of the abdomen/pelvis on 05/12/2018 showed a large ill defined arterially enhancing mass within the right hepatic lobe measuring up to 8 cm. The primary diagnostic consideration was hepatocellular carcinoma. A solitary metastatic lesion was felt to be less likely. A 1.5 cm enhancing lesion within the inferior aspect of the spleen was felt to possibly represent splenic hematoma or hemangioma, but with metastatic lesion not excluded. The prostate was noted to be heterogeneously enlarged. CT of the chest on 05/13/2018 showed borderline enlarged right paratracheal, left paratracheal, and subcarinal lymph nodes, the largest in the subcarinal region measuring 15 mm. There were no suspicious pulmonary nodules and there was no pleural or pericardial effusion noted. A destructive expansile lytic lesion was noted to involve the right coracoid process with associated soft tissue mass. There were degenerative changes of the lower cervical spine. I had seen him initially on 06/15/2018. Given the extent of involvement in the right shoulder area, I did have him see Dr. Rapp for palliative radiation. I also reviewed options for systemic therapy, and per NCCN guidelines I had recommended an initial course of therapy with sorafenib. He began radiation to the right shoulder on 06/23/2018. He completed his course of treatment on 06/29/2018, total dose 4000 cGy. He had a very good clinical response. He began treatment with sorafenib 400 mg twice a day on 07/14/2018. He was then given additional radiation to the left scapula and to the pelvis. Treatment was completed to the left scapula on 08/18/2018 and to the pelvis on 09/01/2018, both sites to 2400 cGy. I had seen him for a followup visit on 09/01/2018. At that time he had developed headache on the right side. Initially he continued the sorafenib, but it was stopped as of 09/12/2018. An MRI of the head on 09/15/2018 showed a thin right parietal subacute subdural hematoma overlying the right parietal convexity. It extended over the right occipital and temporal lobes. It measured 5 mm in maximum dimension. There was minimal mass effect on the underlying brain parenchyma. There was no evidence of metastatic disease. During his further follow-up, he continued conservative management for the subdural hematoma, and his symptoms gradually improved. Repeat CT abdomen/pelvis on 09/27/2018 showed increased size variable decreased enhancement/attenuation of the right hepatic lobe mass. There was evidence of progressive lytic metastatic disease involving the sacrum. He was then approved for second line systemic therapy with nivolumab. He began cycle 1 on 10/12/2018. He was able to tolerate the nivolumab without any significant toxicity. He then continued treatment at 2-week intervals. As of 01/11/2019 he received his 6th cycle. His restaging CT scans on 01/14/2019 showed development of an expansile lesion of the right second rib felt to probably represent a metastatic lesion. There was no change in the treated lesion in the right lobe of the liver. There was also no change in the size of the probable right sacral metastasis. Further evaluation with PET/CT on 01/22/2018 showed a region of probable necrosis in the posterior right hepatic lobe, but with no evidence for active hepatic malignancy. There was evidence for multifocal osseous metastatic disease, including a right second rib lesion measuring 3.9 x 3.4 cm with SUV 4.0. There were additional FDG positive bone lesions in the right scapula, T3 vertebral body, left transverse process of T6, sacrum, proximal right femur, right 10th rib, and left scapula. With those findings, he was referred to Dr. Rapp, and he has been undergoing additional phase of radiation to the thoracic spine. On 03/26/2019 he was admitted to the hospital with complaints of severe pain in the throat/chest and difficulty swallowing. The symptoms were severe enough that he was having vomiting/regurgitation. Radiation esophagitis was suspected, but his Gastrografin upper GI study showed evidence of esophageal stenosis. He then had ENT consultation and he was confirmed on subsequent esophagoscopy to have a benign-appearing stricture, which was able to be dilated. There was no evidence of radiation or Kimberly esophagitis. His symptoms improved, and he was then able to continue radiation. He completed treatment to the thoracic spine on 04/04/2019, total dose 3250 cGy. I had seen him for a follow-up visit on 04/15/2019. Given a low likelihood of benefit with any further systemic therapy, he opted to just continue on symptomatic/supportive care. He declined hospice. On 05/15/2019 he was readmitted to the hospital with continued difficulty swallowing. His repeat EGD showed a small stricture in the post cricoid area. The remainder of the esophagus was unremarkable. The area of stricture was dilated with subsequent improvement in his symptoms. He was discharged home on 05/21/2019 to continue symptomatic/supportive care. He had subsequently reported a new skin rash. He was seen the following day, on 06/16/2019, and he had an obvious herpes zoster eruption on the left side. He completed a course of treatment with Valtrex. At his follow-up visit on 06/20/2019 he required an increase in the dosage of his extended release morphine, and at that time I also had him start olanzapine for persistent nausea. He continued to decline hospice. He is seen for a follow-up visit. He has continued to show gradual decline in his general condition. He has limited activity, though he says he is ambulatory and he is able to do some light work at home. His energy does vary somewhat from day today, as on days when his pain is worse he also just feels a lot worse generally, including exacerbation of his depression. He also continues to have persistent nausea. He had recently come in for IV hydration and IV antiemetics, and he says that he felt great for 2 or 3 days afterwards. He has had significant weight loss over the past 3 to 4 months, in the range of 25 to 30 pounds. He has not had fever. He does have night sweating. He has no shortness of breath or cough. He has episodes of pain across his chest, from right to left. He says the nausea is about to get to him. At the present time he is just taking lorazepam and/or ondansetron. He quit taking Marinol when his prescription ran out. He thinks she was getting some benefit with it, though. He has ongoing problems with constipation despite taking Amitiza, MiraLAX, and senna S. Bladder function remains adequate, though at times it is hard to start. He has pain in his back and left arm and he has some degree of generalized pain. He is also having tingling down his left arm and numbness, and he has continued to lose function of the left arm. He has just occasional headache and he reports occasional dizziness. He is able to sleep at night. Medications: Ativan 1 Tablet (of 1 mg) Oral q 4 hours PRN, Cod Liver Oil 1 Tablet (of 1000 mg) Capsule Oral b.i.d., Cyclobenzaprine HCl 1 Tablet (of 10 mg) Oral t.i.d. PRN, Docusate Sodium Tablet Oral PRN, Gabapentin 1 Capsule (of 300 mg) Oral t.i.d., Morphine Sulfate 1 - 2 Tablet (of 30 mg) Oral q 4 hours PRN, Morphine Sulfate ER 1 Capsule (of 60 mg) Capsule SR 24 HR Oral q 12 hours, Multivitamin Adult 1 Tablet Oral daily, Nitroglycerin 1 (0.4 mg) Tablet, sublingual Sublingual PRN, OLANZapine 1 Tablet (of 5 mg) Oral at bedtime, Ondansetron HCl 1 Tablet (of 4 mg) Oral four times a day PRN, Pantoprazole Sodium 1 Tablet (of 40 mg) Tablet, enteric coated Oral daily PRN, predniSONE Tablet Oral, Vitamin D3 1 Tablet (of 1000 Units) Oral daily Allergies: No Known Allergies. Review of Systems: Constitutional - His energy level varies from day to day. On the days he feels good he is able to do light work, otherwise he does little to nothing at home. His appetite is poor, but he can eat. He has had significant weight loss over the past 3 to 4 months, in the range of 25 to 30 pounds. No fever, chills, hot flashes, or night sweats. ECOG score is 1, ENMT - No sinus congestion/drainage. No mouth sores. No sore throat or difficulty swallowing, Hematologic/Lymphatic - He bruises easily, Respiratory - No shortness of breath. No cough. No pleuritic pain or hemoptysis, Cardiovascular - No angina pain. No palpitations, Gastrointestinal - He is having persistent nausea. No vomiting. No heartburn or acid reflux. No diarrhea. He still has constipation despite taking Amitiza, Miralax and Senna-S. No blood in the stool or black stools, Genitourinary (M) - No dysuria or hematuria. No urinary frequency. No urgency or incontinence. He has hestitancy, Musculoskeletal - He is having generalized joint pain, Integumentary - No skin complications, Neurologic - No headache. He occasional gets dizzy with positional changes. He has numbness/tingling in the left arm and he has continued to lose function of the left arm, Psychiatric - He has anxiety and depression. He sleeps well at night. Vital Signs: Performed on September 08, 2019 12:31 Height - 69.00 in Weight - 126.6 lbs (LOW) BSA - 1.70 sq.m BMI - 18.70 Temperature - 98.5 F Pulse - 86 /min Respiration - 16 /min BP - 148/65 mm(hg) (HIGH) O2 Sat - 99 % Pain - 5 Physical Examination: Constitutional - He appears generally weak and frail, Eyes - Sclerae nonicteric. Conjunctivae clear, ENMT - No lesions noted in the oral cavity, Hematologic/Lymphatic - No cervical, clavicular, or axillary adenopathy, Respiratory - Lungs sound clear with some decrease in air movement bilaterally, Cardiovascular - Heart rhythm is regular. There is no murmur, gallop, or rub noted, Abdomen - Soft. Liver is not enlarged or tender. Spleen is not palpable. There is no abdominal mass or ascites noted and there is no inguinal adenopathy, Extremities - No edema. There are scattered purpuric lesions, Integumentary - No skin eruption, Neurologic - There is weakness of the left arm and hand. There are no other focal neurologic deficits noted. Impression: 1. Patient with hepatocellular carcinoma. By clinical evaluation his disease is stage IVB (T1, NX, M1) with biopsy proven metastatic involvement in the right shoulder. 2. There is also a possible metastatic lesion in the spleen by CT scan. His other medical illnesses include: 3. Hypertension. 4. Hyperlipidemia. 5. Type II diabetes with peripheral neuropathy. 6. Coronary artery disease with history of non-ST elevation myocardial infarction in August 2017. 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 7. GERD/peptic ulcer disease. 8. Obstructive sleep apnea. 9. Degenerative arthritis/degenerative disease of the spine. 10. Gout. 11. Nephrolithiasis. 12. Vitamin D deficiency. 13. Posttraumatic stress disorder. Due to symptomatic involvement in the right shoulder, he initially was treated with palliative radiation to that area. He completed treatment on 06/29/2018, total dose 4000 cGy. He had a very good clinical response. He then began systemic therapy with sorafenib 400 mg twice a day on 07/14/2018. He has now completed additional palliative radiation to the left scapula and to the pelvis, both sites to 2400 cGy. Initially he appeared to be tolerating the sorafenib with acceptable toxicity. However, as of his follow-up visit on 09/01/2018 he had developed headache on the right side. This continued to worsen, and the sorafenib was then stopped as of 09/12/2018. MRA of the head on 09/15/2018 showed evidence of a subacute right subdural hematoma. He was taken off Plavix. It was otherwise been managed conservatively, and it subsequently improved. During follow-up he did show some decline in performance status. His repeat CT scans on 09/27/2018 showed variable appearance to the liver, but there likely was some disease progression in both the liver and bone. On 10/12/2018 he began second line therapy with nivolumab 240 mg by IV infusion every 2 weeks. As of 01/11/2019 he had completed 6 cycles of treatment. His restaging CT and subsequent PET/CT appeared to show evidence of progression of the bony metastatic disease, with the most significant site being in the anterior right second rib. He had initially continued his immunotherapy, but he then had worsening back pain and development of neurologic symptoms in the left arm, and he was confirmed by MRI to have further disease progression in the thoracic spine. The immunotherapy was again put on hold, and he has had underwent palliative radiation to the thoracic spine. He completed treatment on 04/04/2019, total dose 3250 cGy. During that time he required hospital admission for severe dysphasia, but that was determined to be due to a benign esophageal stricture, and his symptoms are improved following an esophageal dilatation procedure. I had seen him for a follow-up visit on 04/15/2019. At that point his pain was being managed adequately with immediate release oxycodone. He had persistent neurologic symptoms in the left arm, and he still had some difficulty swallowing. Given the low likelihood of benefit with further systemic therapy, he opted to just continue with symptomatic/supportive care measures. He declined hospice. During subsequent follow-up his pain worsened and he had continued decline in performance status. He required admission to the hospital for recurrence of dysphasia. His swallowing did show some improvement after repeat EGD and dilatation procedure. His pain management, though, had remained problematic, in part due to poor tolerance for opiate pain medication. He was having significant depression, management of which also was problematic due to poor tolerance for medication. He also has continued to have persistent nausea. In June he completed a course of treatment with Valtrex for herpes zoster. At that time he also required an increase in the dosage of his extended release morphine and I also added olanzapine for his nausea. Since then he has had further decline in his general condition, and there has been further progression of the neurologic deficit in the left arm. He has continued to have significant nerve pain, though he does appear to be getting some benefit with gabapentin. He also continues to have nausea and constipation. He also has some uncertainty about what medication he has been taking for it, and he does not even recall having taken the olanzapine. Plan: He will continue with symptomatic/supportive care measures, as I really do not have any other treatment options available for him. He will continue gabapentin for nerve pain, and that dosage can be escalated as needed. His other pain medications will remain the same. I will have him restart Marinol at 5 mg together with Compazine 10 mg on a twice daily schedule for the nausea, and he will continue lorazepam and/or ondansetron as needed. He will increase senna/docusate to 2 tablets 3 times a day. I will see him again in 1 month. In the meantime, he can return for additional IV hydration as needed. Signed By: Tyler Shea M.D. <<Signature on File>>
== END 2019-09-11 23:59 | disposition home or self-care (01) ==
LOC: ONCMED 06:46
PROVIDERS: Nurse Practitioner; PCP Family Medicine; Visit Provider Internal Medicine Medical Oncology
DX: C22.0 Liver cell carcinoma (principal); C79.51 Secondary malignant neoplasm of bone; D35.02 Benign neoplasm of left adrenal gland; K21.9 Gastro-esophageal reflux disease without esophagitis; F43.10 Post-traumatic stress disorder, unspecified; I25.10 Atherosclerotic heart disease of native coronary artery without angina pectoris; E78.5 Hyperlipidemia, unspecified; I10 Essential (primary) hypertension; G47.33 Obstructive sleep apnea (adult) (pediatric); E11.42 Type 2 diabetes mellitus with diabetic polyneuropathy; E55.9 Vitamin D deficiency, unspecified; I25.2 Old myocardial infarction; I24.1 Dressler's syndrome; N20.0 Calculus of kidney; M10.9 Gout, unspecified; M47.9 Spondylosis, unspecified; R91.1 Solitary pulmonary nodule; Z79.899 Other long term (current) drug therapy
CPT/HCPCS: 71250; 74176; 80053; 82085; 82150; 82565; 83690; 84520; 85025; 96361; 96365; 96375; 99214; C9113; J2405; J3490; J7030

== ENCOUNTER 2019-10-11 06:49 | Outpatient (RCR) | payer OTHER, MEDICARE, SELFPAY ==
[2019-09-26] MEDS: pantoprazole 40 mg SDV IVP (13:50)
[2019-09-26 14:10] VITALS: RESP 18; O2SAT 98
[2019-09-26] MEDS: morphine 4 mg/mL SDV 1 mL 2 MG IVP ×2 (14:10→14:55)
[2019-09-26 14:25] LABS: Alanine Aminotransferase 36 U/L (0-41); Albumin Level 4.2 g/dL (3.5-5.2); Alkaline Phosphatase 163 IU/L (40-130); Anion Gap 23.2 (5-19); Aspartate Amino Transferase 27 U/L (0-40); Blood Urea Nitrogen 28 mg/dL (8-23); Calcium 9.2 mg/dL (8.5-10.5); Carbon Dioxide 19 mmol/L (22-29); Chloride 100 mmol/L (98-107); Globulin 3.5 g/dL (1.3-4.6); Glucose 108 mg/dL (65-115); Osmolality Calculated 282 mOsm/kg (285-295); Potassium 5.2 mmol/L (3.5-5.1); Sodium 137 mmol/L (136-145); Total Bilirubin 0.5 mg/dL (0.15-1.2); Total Protein 7.7 g/dL (6.6-8.7)
[2019-09-26] MEDS: sodium chloride 0.9% 1,000 ML 999 ML IV (14:28)
[2019-09-26 14:55] VITALS: RESP 17; O2SAT 97
[2019-09-26 15:35] VITALS: RESP 17; O2SAT 98
[2019-09-26] MEDS: morphine 4 mg/mL SDV 1 mL IVP (15:35)
[2019-09-26 16:46] LABS: Basophils % 0.8 %; Eosinophils % 0.2 %; Hemoglobin 11.7 g/dL (11.7-16.6); Lymphocytes # 0.4 10^3/uL (0.8-4.8); Mean Corpuscular HGB Conc 31.6 g/dL (30.0-36.0); Mean Corpuscular Hemoglobin 30.5 pg (28.0-34.0); Mean Corpuscular Volume 96.4 fL (80-94); Mean Platelet Volume 9.7 fL (7.4-10.4); Monocytes # 0.1 10^3/uL (0.2-0.9); Monocytes % 2.9 %; Neutrophils # 4.2 10^3/uL (1.8-7.7); Neutrophils % 87.7 %; Nucleated Red Blood Cells % 0 %; Platelet Count 319 10^3/cmm (130-400); Red Blood Count 3.84 10^6/uL (4.1-5.3); Red Cell Distribution Width 13.9 % (12.1-15.1); White Blood Count 4.8 10^3/uL (4.0-10.0)
--- NOTE | 2019-10-12 07:11 | ONC FU_ITS ---
Dr. Shea Patient Follow-Up Note Patient: Victoriano Resendiz Unit #: [id number]: 1950 Dicatated By: Tyler Shea M.D.Date of Visit:Oct 11, 2019 Onc Med Follow-up/Prog Note Chief Complaint: Hepatocellular carcinoma. History of Present Illness: This is a 69 year-old man with metastatic hepatocellular carcinoma. He has multiple medical illnesses including hypertension, hyperlipidemia, type II diabetes with peripheral neuropathy, coronary artery disease, obstructive sleep apnea, GERD/peptic ulcer disease, degenerative arthritis/degenerative disease of the spine, nephrolithiasis, gout, vitamin D deficiency, and posttraumatic stress disorder. In August 2017 he was admitted to the hospital with non-ST elevation myocardial infarction. At the time he underwent emergent coronary angioplasty for obstructive disease in the mid LAD and first diagonal branch, both of which were noted to contain thrombus. He did not require stent placement. 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 His CT angiogram at that time showed a moderate-sized pericardial effusion, but with no evidence for aortic aneurysm or dissection. Also noted on that study was fatty infiltration of the liver and a 3.2 cm mass in the right lobe of the liver, felt to be indeterminate. Further evaluation with CT abdomen/pelvis on 10/12/2017 showed a 3.7 x 3.8 cm mass involving the right lobe of the liver. It was felt to appear more consistent with a hemangioma then other etiologies. A 3 month interval follow-up was recommended. He had then presented in the fall with left arm pain. It improved with physical therapy. He had then developed worsening pain in his right shoulder and arm. X-rays of the right shoulder showed moderate degenerative changes. MRI showed a mass lesion at the distal aspect of the coracoid process with bony destruction and a soft tissue component which was noted to protrude anteriorly. The appearance was suspicious for malignancy. He had orthopedic surgery consultation with Dr. Hemanth Santos on 04/21/2018. Subsequent needle biopsy of the right shoulder soft tissue mass on 05/12/2018 showed metastatic carcinoma consistent with an hepatocellular primary. The tumor cells were noted to be strongly reactive for a HEP-PAR-1 and negative for CK7, CK20, PAX8, RCC, and thyroglobulin. His further staging with CT scans of the abdomen/pelvis on 05/12/2018 showed a large ill defined arterially enhancing mass within the right hepatic lobe measuring up to 8 cm. The primary diagnostic consideration was hepatocellular carcinoma. A solitary metastatic lesion was felt to be less likely. A 1.5 cm enhancing lesion within the inferior aspect of the spleen was felt to possibly represent splenic hematoma or hemangioma, but with metastatic lesion not excluded. The prostate was noted to be heterogeneously enlarged. CT of the chest on 05/13/2018 showed borderline enlarged right paratracheal, left paratracheal, and subcarinal lymph nodes, the largest in the subcarinal region measuring 15 mm. There were no suspicious pulmonary nodules and there was no pleural or pericardial effusion noted. A destructive expansile lytic lesion was noted to involve the right coracoid process with associated soft tissue mass. There were degenerative changes of the lower cervical spine. I had seen him initially on 06/15/2018. Given the extent of involvement in the right shoulder area, I did have him see Dr. Rapp for palliative radiation. I also reviewed options for systemic therapy, and per NCCN guidelines I had recommended an initial course of therapy with sorafenib. He began radiation to the right shoulder on 06/23/2018. He completed his course of treatment on 06/29/2018, total dose 4000 cGy. He had a very good clinical response. He began treatment with sorafenib 400 mg twice a day on 07/14/2018. He was then given additional radiation to the left scapula and to the pelvis. Treatment was completed to the left scapula on 08/18/2018 and to the pelvis on 09/01/2018, both sites to 2400 cGy. I had seen him for a followup visit on 09/01/2018. At that time he had developed headache on the right side. Initially he continued the sorafenib, but it was stopped as of 09/12/2018. An MRI of the head on 09/15/2018 showed a thin right parietal subacute subdural hematoma overlying the right parietal convexity. It extended over the right occipital and temporal lobes. It measured 5 mm in maximum dimension. There was minimal mass effect on the underlying brain parenchyma. There was no evidence of metastatic disease. During his further follow-up, he continued conservative management for the subdural hematoma, and his symptoms gradually improved. Repeat CT abdomen/pelvis on 09/27/2018 showed increased size variable decreased enhancement/attenuation of the right hepatic lobe mass. There was evidence of progressive lytic metastatic disease involving the sacrum. He was then approved for second line systemic therapy with nivolumab. He began cycle 1 on 10/12/2018. He was able to tolerate the nivolumab without any significant toxicity. He then continued treatment at 2-week intervals. As of 01/11/2019 he received his 6th cycle. His restaging CT scans on 01/14/2019 showed development of an expansile lesion of the right second rib felt to probably represent a metastatic lesion. There was no change in the treated lesion in the right lobe of the liver. There was also no change in the size of the probable right sacral metastasis. Further evaluation with PET/CT on 01/22/2018 showed a region of probable necrosis in the posterior right hepatic lobe, but with no evidence for active hepatic malignancy. There was evidence for multifocal osseous metastatic disease, including a right second rib lesion measuring 3.9 x 3.4 cm with SUV 4.0. There were additional FDG positive bone lesions in the right scapula, T3 vertebral body, left transverse process of T6, sacrum, proximal right femur, right 10th rib, and left scapula. With those findings, he was referred to Dr. Rapp, and he has been undergoing additional phase of radiation to the thoracic spine. On 03/26/2019 he was admitted to the hospital with complaints of severe pain in the throat/chest and difficulty swallowing. The symptoms were severe enough that he was having vomiting/regurgitation. Radiation esophagitis was suspected, but his Gastrografin upper GI study showed evidence of esophageal stenosis. He then had ENT consultation and he was confirmed on subsequent esophagoscopy to have a benign-appearing stricture, which was able to be dilated. There was no evidence of radiation or Kimberly esophagitis. His symptoms improved, and he was then able to continue radiation. He completed treatment to the thoracic spine on 04/04/2019, total dose 3250 cGy. I had seen him for a follow-up visit on 04/15/2019. Given a low likelihood of benefit with any further systemic therapy, he opted to just continue on symptomatic/supportive care. He declined hospice. On 05/15/2019 he was readmitted to the hospital with continued difficulty swallowing. His repeat EGD showed a small stricture in the post cricoid area. The remainder of the esophagus was unremarkable. The area of stricture was dilated with subsequent improvement in his symptoms. He was discharged home on 05/21/2019 to continue symptomatic/supportive care. He had subsequently reported a new skin rash. He was seen the following day, on 06/16/2019, and he had an obvious herpes zoster eruption on the left side. He completed a course of treatment with Valtrex. At his follow-up visit on 06/20/2019 he required an increase in the dosage of his extended release morphine, and at that time I also had him start olanzapine for persistent nausea. He continued to decline hospice. He is seen for a follow-up visit. Following his last visit, he had started Marinol together with Compazine for the nausea/anorexia. It has helped significantly with the nausea, but he still does not have much appetite. His oral intake now is mainly just limited to Ensure. He has lost weight. He does not have much activity. His ECOG score is 2. He has no fever or night sweats. His main complaint now is that he still has constipation despite taking senna S, Miralax, and Amitiza. It is severe enough that he has not been taking his pain medication, though he was able to have a bowel movement last week on after taking an enema and he did have a little bit of a bowel movement this morning. He has pain now in his lower back and he has generalized joint pain. His most severe pain is in the sacrum and in the area of the left shoulder blade. He also complains that he is starting to get a sore in the sacral area. Medications: Ativan 1 Tablet (of 1 mg) Oral q 4 hours PRN, Cod Liver Oil 1 Tablet (of 1000 mg) Capsule Oral b.i.d., Cyclobenzaprine HCl 1 Tablet (of 10 mg) Oral t.i.d. PRN, Docusate Sodium Tablet Oral PRN, Gabapentin 1 Capsule (of 300 mg) Oral t.i.d., Morphine Sulfate 1 - 2 Tablet (of 30 mg) Oral q 4 hours PRN, Morphine Sulfate ER 1 Capsule (of 60 mg) Capsule SR 24 HR Oral q 12 hours, Multivitamin Adult 1 Tablet Oral daily, Nitroglycerin 1 (0.4 mg) Tablet, sublingual Sublingual PRN, OLANZapine 1 Tablet (of 5 mg) Oral at bedtime, Ondansetron HCl 1 Tablet (of 4 mg) Oral four times a day PRN, Pantoprazole Sodium 1 Tablet (of 40 mg) Tablet, enteric coated Oral daily PRN, predniSONE Tablet Oral, Vitamin D3 1 Tablet (of 1000 Units) Oral daily Allergies: No Known Allergies. Review of Systems: Constitutional - He is not doing much at home due to pain. His energy level is very low. His appetite is very poor,he states that his main source of nutrition is Ensure. His weight is down another 6 pounds from last months visit. No fever, night sweats, or hot flashes. ECOG score is 2, ENMT - He has sinus drainage. No mouth sores. No sore throat or difficulty swallowing, Hematologic/Lymphatic - No abnormal bruising or bleeding, Respiratory - No shortness of breath. No cough. No pleuritic pain or hemoptysis, Cardiovascular - No angina pain. No palpitations, Gastrointestinal - His nausea is very well managed with Marinol and prochlorperazine. No vomiting. No heartburn or acid reflux. No diarrhea. He has severe constipation. He is using Senna-S, Miralax, and Amitiza without relief. No blood in the stool or black stools, Genitourinary (M) - No dysuria or hematuria. No urinary frequency. No urgency or incontinence, Musculoskeletal - He has pain in all his joints. He has significant pain in his sacrum and in the area of his left shoulder blade, Integumentary - He is getting a sore in the sacral area, Neurologic - No headache. He occasionally has dizziness. He has numbness and tingling. No other focal neurologic symptoms, Psychiatric - He has mild anxiety and he is feeling more depressed related to pain and activity restrictions. He has some difficulty sleeping. Vital Signs: Performed on Oct 11, 2019 13:05 Height - 69.00 in Weight - 120.8 lbs (LOW) BSA - 1.67 sq.m BMI - 17.84 (LOW) Temperature - 97.8 F (LOW) Pulse - 99 /min Respiration - 16 /min BP - 127/67 mm(hg) O2 Sat - 97 % Pain - 7 Physical Examination: Constitutional - He appears generally weak. He has noticeable weight loss, Eyes - Sclerae nonicteric. Conjunctivae clear, ENMT - No lesions noted in the oral cavity, Hematologic/Lymphatic - No cervical, clavicular, or axillary adenopathy, Respiratory - Lungs sound clear with some decrease in air movement bilaterally, Cardiovascular - Heart rhythm is regular. There is no murmur, gallop, or rub noted, Abdomen - This. Liver is palpable just below the costal margin. Spleen is not enlarged. There is no abdominal mass or ascites noted and there is no inguinal adenopathy, Extremities - No edema, Integumentary - There is erythema in the coccygeal area. There is no skin breakdown, Neurologic - There is weakness of the left arm and hand. There are no other focal neurologic deficits noted. Lab/Imaging: Test performed on August 25, 2019 12:40 Aldolase 2.8 U/L Amylase 79 U/L Sodium 135 mmol/L Potassium 5.2 mmol/L Chloride 100 mmol/L CO2 22 mmol/L Anion Gap 18.2 Creatinine 2.3 mg/dL Cr Clearance (Est) 24.49 mL/min Glucose 118 mg/dL Calcium 8.8 mg/dL Protein, Total 7.2 g/dL Albumin 4.0 g/dL Globulin 3.2 g/dL Bilirubin, Total 0.5 mg/dL ALT (SGPT) 37 U/L AST (SGOT) 23 U/L Alkaline Phosphatase 169 IU/L WBC 6.6 10 3/uL RBC 3.60 10 6/uL HGB 10.9 g/dL HCT 34.8 % MCV 96.7 fL MCH 30.3 pg MCHC 31.3 g/dL RDW 15.8 % Platelet Count 319 10 3/cmm MPV 9.1 fL Neutrophils 5.6 10 3/uL Lymphocytes 0.5 10 3/uL Monocytes 0.4 10 3/uL Eosinophils 0.0 10 3/uL Basophils 0.1 10 3/uL Neutrophil % 86.0 % Lymphocyte % 7.3 % Monocyte % 5.3 % Eosinophil % 0.3 % Basophils % 0.9 % Impression: 1. Patient with hepatocellular carcinoma. By clinical evaluation his disease is stage IVB (T1, NX, M1) with biopsy proven metastatic involvement in the right shoulder. 2. There is also a possible metastatic lesion in the spleen by CT scan. His other medical illnesses include: 3. Hypertension. 4. Hyperlipidemia. 5. Type II diabetes with peripheral neuropathy. 6. Coronary artery disease with history of non-ST elevation myocardial infarction in August 2017. 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 7. GERD/peptic ulcer disease. 8. Obstructive sleep apnea. 9. Degenerative arthritis/degenerative disease of the spine. 10. Gout. 11. Nephrolithiasis. 12. Vitamin D deficiency. 13. Posttraumatic stress disorder. Due to symptomatic involvement in the right shoulder, he initially was treated with palliative radiation to that area. He completed treatment on 06/29/2018, total dose 4000 cGy. He had a very good clinical response. He then began systemic therapy with sorafenib 400 mg twice a day on 07/14/2018. He has now completed additional palliative radiation to the left scapula and to the pelvis, both sites to 2400 cGy. Initially he appeared to be tolerating the sorafenib with acceptable toxicity. However, as of his follow-up visit on 09/01/2018 he had developed headache on the right side. This continued to worsen, and the sorafenib was then stopped as of 09/12/2018. MRA of the head on 09/15/2018 showed evidence of a subacute right subdural hematoma. He was taken off Plavix. It was otherwise been managed conservatively, and it subsequently improved. During follow-up he did show some decline in performance status. His repeat CT scans on 09/27/2018 showed variable appearance to the liver, but there likely was some disease progression in both the liver and bone. On 10/12/2018 he began second line therapy with nivolumab 240 mg by IV infusion every 2 weeks. As of 01/11/2019 he had completed 6 cycles of treatment. His restaging CT and subsequent PET/CT appeared to show evidence of progression of the bony metastatic disease, with the most significant site being in the anterior right second rib. He had initially continued his immunotherapy, but he then had worsening back pain and development of neurologic symptoms in the left arm, and he was confirmed by MRI to have further disease progression in the thoracic spine. The immunotherapy was again put on hold, and he has had underwent palliative radiation to the thoracic spine. He completed treatment on 04/04/2019, total dose 3250 cGy. During that time he required hospital admission for severe dysphasia, but that was determined to be due to a benign esophageal stricture, and his symptoms are improved following an esophageal dilatation procedure. I had seen him for a follow-up visit on 04/15/2019. At that point his pain was being managed adequately with immediate release oxycodone. He had persistent neurologic symptoms in the left arm, and he still had some difficulty swallowing. Given the low likelihood of benefit with further systemic therapy, he opted to just continue with symptomatic/supportive care measures. He declined hospice. In June he completed a course of treatment with Valtrex for herpes zoster. At that time he also required an increase in the dosage of his extended release morphine and I also added olanzapine for his nausea. During subsequent followup there was further decline in his general condition along with further progression of the neurologic deficit in the left arm. He has continued to have both bone and nerve pain, and he has had ongoing problems with nausea/anorexia and constipation. Plan: He will continue with symptomatic/supportive care measures. I have advised him to increase senna S to 3 tablets twice daily and to continue the MiraLAX daily. He is to stop Alicia Hannah, and he will try a Relistor injection if he goes 3 days without a bowel movement. He will start back on his extended release morphine. He will increase the Compazine/Marinol to 3 times a day. He will continue to use barrier cream to prevent skin breakdown. I have again strongly encouraged him to get hospice involved, and he is going to meet with a hospice customer contact representative again. I will see him again in 1 month, or sooner as needed. Signed By: Tyler Shea M.D. <<Signature on File>>
== END 2019-10-11 23:59 | disposition home or self-care (01) ==
LOC: ONCMED 06:49
PROVIDERS: Nurse Practitioner; PCP Family Medicine; Visit Provider Internal Medicine Medical Oncology
DX: C22.0 Liver cell carcinoma (principal); C79.51 Secondary malignant neoplasm of bone; C78.89 Secondary malignant neoplasm of other digestive organs; I10 Essential (primary) hypertension; E78.5 Hyperlipidemia, unspecified; E11.42 Type 2 diabetes mellitus with diabetic polyneuropathy; I25.10 Atherosclerotic heart disease of native coronary artery without angina pectoris; I25.2 Old myocardial infarction; K21.9 Gastro-esophageal reflux disease without esophagitis; G47.33 Obstructive sleep apnea (adult) (pediatric); M47.9 Spondylosis, unspecified; M10.9 Gout, unspecified; N20.0 Calculus of kidney; E55.9 Vitamin D deficiency, unspecified; F43.10 Post-traumatic stress disorder, unspecified
CPT/HCPCS: 80053; 85025; 96361; 96365; 96367; 96375; 99214; C9113; J2270; J2405; J3490; J7030

== ENCOUNTER 2019-11-15 08:03 | Outpatient (CLI) | payer OTHER, MEDICARE, SELFPAY ==
--- NOTE | 2019-11-19 09:08 | ONC FU_ITS ---
Dr. Shea Patient Follow-Up Note Patient: Victoriano Resendiz Unit #: [id number]: 1950 Dicatated By: Tyler Shea M.D.Date of Visit:Nov 15, 2019 Onc Med Follow-up/Prog Note Chief Complaint: Hepatocellular carcinoma. History of Present Illness: This is a 69 year-old man with metastatic hepatocellular carcinoma. He has multiple medical illnesses including hypertension, hyperlipidemia, type II diabetes with peripheral neuropathy, coronary artery disease, obstructive sleep apnea, GERD/peptic ulcer disease, degenerative arthritis/degenerative disease of the spine, nephrolithiasis, gout, vitamin D deficiency, and posttraumatic stress disorder. In August 2017 he was admitted to the hospital with non-ST elevation myocardial infarction. At the time he underwent emergent coronary angioplasty for obstructive disease in the mid LAD and first diagonal branch, both of which were noted to contain thrombus. He did not require stent placement. 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 His CT angiogram at that time showed a moderate-sized pericardial effusion, but with no evidence for aortic aneurysm or dissection. Also noted on that study was fatty infiltration of the liver and a 3.2 cm mass in the right lobe of the liver, felt to be indeterminate. Further evaluation with CT abdomen/pelvis on 10/12/2017 showed a 3.7 x 3.8 cm mass involving the right lobe of the liver. It was felt to appear more consistent with a hemangioma then other etiologies. A 3 month interval follow-up was recommended. He had then presented in the fall with left arm pain. It improved with physical therapy. He had then developed worsening pain in his right shoulder and arm. X-rays of the right shoulder showed moderate degenerative changes. MRI showed a mass lesion at the distal aspect of the coracoid process with bony destruction and a soft tissue component which was noted to protrude anteriorly. The appearance was suspicious for malignancy. He had orthopedic surgery consultation with Dr. Hemanth Santos on 04/21/2018. Subsequent needle biopsy of the right shoulder soft tissue mass on 05/12/2018 showed metastatic carcinoma consistent with an hepatocellular primary. The tumor cells were noted to be strongly reactive for a HEP-PAR-1 and negative for CK7, CK20, PAX8, RCC, and thyroglobulin. His further staging with CT scans of the abdomen/pelvis on 05/12/2018 showed a large ill defined arterially enhancing mass within the right hepatic lobe measuring up to 8 cm. The primary diagnostic consideration was hepatocellular carcinoma. A solitary metastatic lesion was felt to be less likely. A 1.5 cm enhancing lesion within the inferior aspect of the spleen was felt to possibly represent splenic hematoma or hemangioma, but with metastatic lesion not excluded. The prostate was noted to be heterogeneously enlarged. CT of the chest on 05/13/2018 showed borderline enlarged right paratracheal, left paratracheal, and subcarinal lymph nodes, the largest in the subcarinal region measuring 15 mm. There were no suspicious pulmonary nodules and there was no pleural or pericardial effusion noted. A destructive expansile lytic lesion was noted to involve the right coracoid process with associated soft tissue mass. There were degenerative changes of the lower cervical spine. I had seen him initially on 06/15/2018. Given the extent of involvement in the right shoulder area, I did have him see Dr. Rapp for palliative radiation. I also reviewed options for systemic therapy, and per NCCN guidelines I had recommended an initial course of therapy with sorafenib. He began radiation to the right shoulder on 06/23/2018. He completed his course of treatment on 06/29/2018, total dose 4000 cGy. He had a very good clinical response. He began treatment with sorafenib 400 mg twice a day on 07/14/2018. He was then given additional radiation to the left scapula and to the pelvis. Treatment was completed to the left scapula on 08/18/2018 and to the pelvis on 09/01/2018, both sites to 2400 cGy. I had seen him for a followup visit on 09/01/2018. At that time he had developed headache on the right side. Initially he continued the sorafenib, but it was stopped as of 09/12/2018. An MRI of the head on 09/15/2018 showed a thin right parietal subacute subdural hematoma overlying the right parietal convexity. It extended over the right occipital and temporal lobes. It measured 5 mm in maximum dimension. There was minimal mass effect on the underlying brain parenchyma. There was no evidence of metastatic disease. During his further follow-up, he continued conservative management for the subdural hematoma, and his symptoms gradually improved. Repeat CT abdomen/pelvis on 09/27/2018 showed increased size variable decreased enhancement/attenuation of the right hepatic lobe mass. There was evidence of progressive lytic metastatic disease involving the sacrum. He was then approved for second line systemic therapy with nivolumab. He began cycle 1 on 10/12/2018. He was able to tolerate the nivolumab without any significant toxicity. He then continued treatment at 2-week intervals. As of 01/11/2019 he received his 6th cycle. His restaging CT scans on 01/14/2019 showed development of an expansile lesion of the right second rib felt to probably represent a metastatic lesion. There was no change in the treated lesion in the right lobe of the liver. There was also no change in the size of the probable right sacral metastasis. Further evaluation with PET/CT on 01/22/2018 showed a region of probable necrosis in the posterior right hepatic lobe, but with no evidence for active hepatic malignancy. There was evidence for multifocal osseous metastatic disease, including a right second rib lesion measuring 3.9 x 3.4 cm with SUV 4.0. There were additional FDG positive bone lesions in the right scapula, T3 vertebral body, left transverse process of T6, sacrum, proximal right femur, right 10th rib, and left scapula. With those findings, he was referred to Dr. Rapp, and he has been undergoing additional phase of radiation to the thoracic spine. On 03/26/2019 he was admitted to the hospital with complaints of severe pain in the throat/chest and difficulty swallowing. The symptoms were severe enough that he was having vomiting/regurgitation. Radiation esophagitis was suspected, but his Gastrografin upper GI study showed evidence of esophageal stenosis. He then had ENT consultation and he was confirmed on subsequent esophagoscopy to have a benign-appearing stricture, which was able to be dilated. There was no evidence of radiation or Kimberly esophagitis. His symptoms improved, and he was then able to continue radiation. He completed treatment to the thoracic spine on 04/04/2019, total dose 3250 cGy. I had seen him for a follow-up visit on 04/15/2019. Given a low likelihood of benefit with any further systemic therapy, he opted to just continue on symptomatic/supportive care. He declined hospice. On 05/15/2019 he was readmitted to the hospital with continued difficulty swallowing. His repeat EGD showed a small stricture in the post cricoid area. The remainder of the esophagus was unremarkable. The area of stricture was dilated with subsequent improvement in his symptoms. He was discharged home on 05/21/2019 to continue symptomatic/supportive care. He had subsequently reported a new skin rash. He was seen the following day, on 06/16/2019, and he had an obvious herpes zoster eruption on the left side. He completed a course of treatment with Valtrex. At his follow-up visit on 06/20/2019 he required an increase in the dosage of his extended release morphine, and at that time I also had him start olanzapine for persistent nausea. He continued to decline hospice. He is seen for a follow-up visit. He says that he feels terrible, mainly because he is hurting all over. He has had ongoing problems with constipation, enough that it causes him to cut back on his pain medication. He has had Relistor available, but he has not been using it. He has very limited activity, but he is still ambulatory and he is still doing a little bit of light work at home. Appetite has been okay. His weight is stable. He has not had fever. He complains that he feels cold all the time. He has had some sweating. He says his breathing is okay, but he feels every breath in his chest. He says it feels like a big dog is sitting on his chest. He has pain in his spine. He has numbness/tingling up and down his arms and in his back. Lately has been having more depression. Medications: Ativan 1 Tablet (of 1 mg) Oral q 4 hours PRN, Cyclobenzaprine HCl 1 Tablet (of 10 mg) Oral t.i.d. PRN, Docusate Sodium Tablet Oral PRN, Flovent HFA 1 Puff(s) (of 220 mcg/act) Aerosol Inhalation b.i.d., Fluticasone Propionate HFA 1 (220 mcg/act) Aerosol Inhalation b.i.d., Gabapentin 1 Capsule (of 300 mg) Oral t.i.d., Marinol 1 Capsule (of 5 mg) Oral b.i.d., Morphine Sulfate 1 - 2 Tablet (of 30 mg) Oral q 4 hours PRN, Morphine Sulfate ER 1 Capsule (of 60 mg) Capsule SR 24 HR Oral q 12 hours, Multivitamin Adult 1 Tablet Oral daily, Nitroglycerin 1 (0.4 mg) Tablet, sublingual Sublingual PRN, Ondansetron HCl 1 Tablet (of 4 mg) Oral four times a day PRN, Pantoprazole Sodium 1 Tablet (of 40 mg) Tablet, enteric coated Oral daily PRN, predniSONE Tablet Oral, Prochlorperazine Maleate 1 Tablet (of 10 mg) Oral b.i.d., Vitamin D3 1 Tablet (of 1000 Units) Oral daily Allergies: No Known Allergies. Review of Systems: Constitutional - He says he feels terrible. His activity is very limited, but he is ambulatory and he is still doing a little bit of light work. Appetite is okay. His weight is stable. He has not had fever, but he does feel cold all the time and he has had some sweating. ECOG score is 2, ENMT - He has sinus drainage. No mouth sores. His throat is a little sore. He has no difficulty swallowing, Hematologic/Lymphatic - No abnormal bruising or bleeding, Respiratory - He says he still breathes okay, but he feels every breath in his chest. He has a little bit of cough. No hemoptysis, Cardiovascular - He says it feels like there is a big dog sitting on his chest. No palpitations, Gastrointestinal - He has nausea, the medication is helping. No heartburn or acid reflux. His bowels are still sluggish, enough that he has been cutting back on his pain medication. He has Relistor, but he has not been using it. No blood in the stool or black stools, Genitourinary (M) - He sometimes has burning with urination. No hematuria. No urinary frequency. No urgency or incontinence, Musculoskeletal - He complains that he hurts all over, especially in his spine and in his chest, Integumentary - No skin rash, Neurologic - He has headache occasionally. He does have dizziness/lightheadedness. He has numbness/tingling up and down his arms and in his back, Psychiatric - He has having more depression. He does not sleep well at night. Vital Signs: Performed on Nov 15, 2019 08:34 Height - 69.00 in Weight - 123.0 lbs (HIGH) BSA - 1.68 sq.m BMI - 18.16 Temperature - 98.4 F Pulse - 90 /min Respiration - 22 /min BP - 127/64 mm(hg) O2 Sat - 99 % Pain - 7 Physical Examination: Constitutional - He appears generally weak and chronically ill, Eyes - Sclerae nonicteric. Conjunctivae clear, ENMT - No lesions noted in the oral cavity, Hematologic/Lymphatic - No cervical, clavicular, or axillary adenopathy, Respiratory - Lungs sound clear with some decrease in air movement bilaterally, Cardiovascular - Heart rhythm is regular. There is no murmur, gallop, or rub noted, Abdomen - Thin but soft. Liver is not overtly enlarged. Spleen is not enlarged. There is no abdominal mass or ascites noted and there is no inguinal adenopathy, Extremities - No edema, Neurologic - He has some weakness ijn the left arm and hand. There are no other focal neurologic deficits noted. Impression: 1. Patient with hepatocellular carcinoma. By clinical evaluation his disease is stage IVB (T1, NX, M1) with biopsy proven metastatic involvement in the right shoulder. 2. There is also a possible metastatic lesion in the spleen by CT scan. His other medical illnesses include: 3. Hypertension. 4. Hyperlipidemia. 5. Type II diabetes with peripheral neuropathy. 6. Coronary artery disease with history of non-ST elevation myocardial infarction in August 2017. 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 7. GERD/peptic ulcer disease. 8. Obstructive sleep apnea. 9. Degenerative arthritis/degenerative disease of the spine. 10. Gout. 11. Nephrolithiasis. 12. Vitamin D deficiency. 13. Posttraumatic stress disorder. Due to symptomatic involvement in the right shoulder, he initially was treated with palliative radiation to that area. He completed treatment on 06/29/2018, total dose 4000 cGy. He had a very good clinical response. He then began systemic therapy with sorafenib 400 mg twice a day on 07/14/2018. He has now completed additional palliative radiation to the left scapula and to the pelvis, both sites to 2400 cGy. Initially he appeared to be tolerating the sorafenib with acceptable toxicity. However, as of his follow-up visit on 09/01/2018 he had developed headache on the right side. This continued to worsen, and the sorafenib was then stopped as of 09/12/2018. MRA of the head on 09/15/2018 showed evidence of a subacute right subdural hematoma. He was taken off Plavix. It was otherwise been managed conservatively, and it subsequently improved. During follow-up he did show some decline in performance status. His repeat CT scans on 09/27/2018 showed variable appearance to the liver, but there likely was some disease progression in both the liver and bone. On 10/12/2018 he began second line therapy with nivolumab 240 mg by IV infusion every 2 weeks. As of 01/11/2019 he had completed 6 cycles of treatment. His restaging CT and subsequent PET/CT appeared to show evidence of progression of the bony metastatic disease, with the most significant site being in the anterior right second rib. He had initially continued his immunotherapy, but he then had worsening back pain and development of neurologic symptoms in the left arm, and he was confirmed by MRI to have further disease progression in the thoracic spine. The immunotherapy was again put on hold, and he has had underwent palliative radiation to the thoracic spine. He completed treatment on 04/04/2019, total dose 3250 cGy. During that time he required hospital admission for severe dysphasia, but that was determined to be due to a benign esophageal stricture, and his symptoms are improved following an esophageal dilatation procedure. I had seen him for a follow-up visit on 04/15/2019. At that point his pain was being managed adequately with immediate release oxycodone. He had persistent neurologic symptoms in the left arm, and he still had some difficulty swallowing. Given the low likelihood of benefit with further systemic therapy, he opted to just continue with symptomatic/supportive care measures. He declined hospice. In June he completed a course of treatment with Valtrex for herpes zoster. At that time he also required an increase in the dosage of his extended release morphine and I also added olanzapine for his nausea. During subsequent followup there was further decline in his general condition along with further progression of the neurologic deficit in the left arm. He has continued to have both bone and nerve pain, and he has had ongoing problems with nausea/anorexia and constipation. As of his follow-up visit in September 2019 he was still having bone pain and neuropathic pain, and he had ongoing problems with nausea and constipation. Since then he has been doing somewhat better with the nausea, but he continues to have constipation, significant enough that he has been reluctant to take his pain medication. He also has been having more depression lately. His management has been problematic in part because he is not very compliant he also has not been willing to accept assistance through hospice. Plan: He continues symptomatic/supportive care measures. He will continue with his current bowel regimen, but he is to use the Relistor not less frequently than every 3 days. I have encouraged him to get back on his regular pain regimen. He will now start Paxil 10 mg daily, that can be increased as necessary. I have again encouraged him to consider hospice, but for some reason he is just very resistant to it. I will see him again in 1 month, or sooner as needed. Signed By: Tyler Shea M.D. <<Signature on File>>
== END 2019-11-15 08:04 | disposition home or self-care (01) ==
LOC: ONCMED 08:11
PROVIDERS: PCP Family Medicine; Visit Provider Internal Medicine Medical Oncology
DX: C22.0 Liver cell carcinoma (principal); C79.51 Secondary malignant neoplasm of bone; G89.3 Neoplasm related pain (acute) (chronic); K59.00 Constipation, unspecified; F32.9 Major depressive disorder, single episode, unspecified; I10 Essential (primary) hypertension; E78.5 Hyperlipidemia, unspecified; E11.42 Type 2 diabetes mellitus with diabetic polyneuropathy; I25.10 Atherosclerotic heart disease of native coronary artery without angina pectoris; I25.2 Old myocardial infarction; K21.9 Gastro-esophageal reflux disease without esophagitis; K27.9 Peptic ulcer, site unspecified, unspecified as acute or chronic, without hemorrhage or perforation; G47.33 Obstructive sleep apnea (adult) (pediatric); M48.9 Spondylopathy, unspecified; M19.90 Unspecified osteoarthritis, unspecified site; N20.0 Calculus of kidney; E55.9 Vitamin D deficiency, unspecified; F43.10 Post-traumatic stress disorder, unspecified; Z92.3 Personal history of irradiation; Z91.19 Patient's noncompliance with other medical treatment and regimen
CPT/HCPCS: 99214

== ENCOUNTER 2019-12-13 07:45 | Outpatient (CLI) | payer OTHER, MEDICARE, SELFPAY ==
--- NOTE | 2019-12-13 18:34 | ONC FU_ITS ---
Dr. Shea Patient Follow-Up Note Patient: Victoriano Resendiz Unit #: [id number]: 1950 Dicatated By: Tyler Shea M.D.Date of Visit:Dec 13, 2019 Onc Med Follow-up/Prog Note Chief Complaint: Hepatocellular carcinoma. History of Present Illness: This is a 69 year-old man with metastatic hepatocellular carcinoma. He has multiple medical illnesses including hypertension, hyperlipidemia, type II diabetes with peripheral neuropathy, coronary artery disease, obstructive sleep apnea, GERD/peptic ulcer disease, degenerative arthritis/degenerative disease of the spine, nephrolithiasis, gout, vitamin D deficiency, and posttraumatic stress disorder. In August 2017 he was admitted to the hospital with non-ST elevation myocardial infarction. At the time he underwent emergent coronary angioplasty for obstructive disease in the mid LAD and first diagonal branch, both of which were noted to contain thrombus. He did not require stent placement. 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 His CT angiogram at that time showed a moderate-sized pericardial effusion, but with no evidence for aortic aneurysm or dissection. Also noted on that study was fatty infiltration of the liver and a 3.2 cm mass in the right lobe of the liver, felt to be indeterminate. Further evaluation with CT abdomen/pelvis on 10/12/2017 showed a 3.7 x 3.8 cm mass involving the right lobe of the liver. It was felt to appear more consistent with a hemangioma then other etiologies. A 3 month interval follow-up was recommended. He had then presented in the fall with left arm pain. It improved with physical therapy. He had then developed worsening pain in his right shoulder and arm. X-rays of the right shoulder showed moderate degenerative changes. MRI showed a mass lesion at the distal aspect of the coracoid process with bony destruction and a soft tissue component which was noted to protrude anteriorly. The appearance was suspicious for malignancy. He had orthopedic surgery consultation with Dr. Hemanth Santos on 04/21/2018. Subsequent needle biopsy of the right shoulder soft tissue mass on 05/12/2018 showed metastatic carcinoma consistent with an hepatocellular primary. The tumor cells were noted to be strongly reactive for a HEP-PAR-1 and negative for CK7, CK20, PAX8, RCC, and thyroglobulin. His further staging with CT scans of the abdomen/pelvis on 05/12/2018 showed a large ill defined arterially enhancing mass within the right hepatic lobe measuring up to 8 cm. The primary diagnostic consideration was hepatocellular carcinoma. A solitary metastatic lesion was felt to be less likely. A 1.5 cm enhancing lesion within the inferior aspect of the spleen was felt to possibly represent splenic hematoma or hemangioma, but with metastatic lesion not excluded. The prostate was noted to be heterogeneously enlarged. CT of the chest on 05/13/2018 showed borderline enlarged right paratracheal, left paratracheal, and subcarinal lymph nodes, the largest in the subcarinal region measuring 15 mm. There were no suspicious pulmonary nodules and there was no pleural or pericardial effusion noted. A destructive expansile lytic lesion was noted to involve the right coracoid process with associated soft tissue mass. There were degenerative changes of the lower cervical spine. I had seen him initially on 06/15/2018. Given the extent of involvement in the right shoulder area, I did have him see Dr. Rapp for palliative radiation. I also reviewed options for systemic therapy, and per NCCN guidelines I had recommended an initial course of therapy with sorafenib. He began radiation to the right shoulder on 06/23/2018. He completed his course of treatment on 06/29/2018, total dose 4000 cGy. He had a very good clinical response. He began treatment with sorafenib 400 mg twice a day on 07/14/2018. He was then given additional radiation to the left scapula and to the pelvis. Treatment was completed to the left scapula on 08/18/2018 and to the pelvis on 09/01/2018, both sites to 2400 cGy. I had seen him for a followup visit on 09/01/2018. At that time he had developed headache on the right side. Initially he continued the sorafenib, but it was stopped as of 09/12/2018. An MRI of the head on 09/15/2018 showed a thin right parietal subacute subdural hematoma overlying the right parietal convexity. It extended over the right occipital and temporal lobes. It measured 5 mm in maximum dimension. There was minimal mass effect on the underlying brain parenchyma. There was no evidence of metastatic disease. During his further follow-up, he continued conservative management for the subdural hematoma, and his symptoms gradually improved. Repeat CT abdomen/pelvis on 09/27/2018 showed increased size variable decreased enhancement/attenuation of the right hepatic lobe mass. There was evidence of progressive lytic metastatic disease involving the sacrum. He was then approved for second line systemic therapy with nivolumab. He began cycle 1 on 10/12/2018. He was able to tolerate the nivolumab without any significant toxicity. He then continued treatment at 2-week intervals. As of 01/11/2019 he received his 6th cycle. His restaging CT scans on 01/14/2019 showed development of an expansile lesion of the right second rib felt to probably represent a metastatic lesion. There was no change in the treated lesion in the right lobe of the liver. There was also no change in the size of the probable right sacral metastasis. Further evaluation with PET/CT on 01/22/2018 showed a region of probable necrosis in the posterior right hepatic lobe, but with no evidence for active hepatic malignancy. There was evidence for multifocal osseous metastatic disease, including a right second rib lesion measuring 3.9 x 3.4 cm with SUV 4.0. There were additional FDG positive bone lesions in the right scapula, T3 vertebral body, left transverse process of T6, sacrum, proximal right femur, right 10th rib, and left scapula. With those findings, he was referred to Dr. Rapp, and he has been undergoing additional phase of radiation to the thoracic spine. On 03/26/2019 he was admitted to the hospital with complaints of severe pain in the throat/chest and difficulty swallowing. The symptoms were severe enough that he was having vomiting/regurgitation. Radiation esophagitis was suspected, but his Gastrografin upper GI study showed evidence of esophageal stenosis. He then had ENT consultation and he was confirmed on subsequent esophagoscopy to have a benign-appearing stricture, which was able to be dilated. There was no evidence of radiation or Kimberly esophagitis. His symptoms improved, and he was then able to continue radiation. He completed treatment to the thoracic spine on 04/04/2019, total dose 3250 cGy. I had seen him for a follow-up visit on 04/15/2019. Given a low likelihood of benefit with any further systemic therapy, he opted to just continue on symptomatic/supportive care. He declined hospice. On 05/15/2019 he was readmitted to the hospital with continued difficulty swallowing. His repeat EGD showed a small stricture in the post cricoid area. The remainder of the esophagus was unremarkable. The area of stricture was dilated with subsequent improvement in his symptoms. He was discharged home on 05/21/2019 to continue symptomatic/supportive care. He had subsequently reported a new skin rash. He was seen the following day, on 06/16/2019, and he had an obvious herpes zoster eruption on the left side. He completed a course of treatment with Valtrex. At his follow-up visit on 06/20/2019 he required an increase in the dosage of his extended release morphine, and at that time I also had him start olanzapine for persistent nausea. He continued to decline hospice. During subsequent follow-up he continued to have significant issues with nausea and constipation. The constipation was severe enough that he did not want to take pain medication, which then made his pain and his depression a lot worse. Following his last visit, I finally did convince him to start using Relistor, which has been effective for relieving his constipation, though he does complain that it causes him to have acid reflux. He has been able to control his nausea with a combination of ODT ondansetron and lorazepam. He still has no appetite, though, and he has continued to lose weight. His energy comes and goes, but overall he still has very limited activity. His ECOG score is 2. He has not had fever. He does have some night sweating. He is managing his pain adequately with a combination of immediate release morphine and oxycodone. He has preferred not to take the extended release morphine or the hydrocodone/APAP. Medications: Ativan 1 Tablet (of 1 mg) Oral q 4 hours PRN, Cyclobenzaprine HCl 1 Tablet (of 10 mg) Oral t.i.d. PRN, Docusate Sodium Tablet Oral PRN, Flovent HFA 1 Puff(s) (of 220 mcg/act) Aerosol Inhalation b.i.d., Fluticasone Propionate HFA 1 (220 mcg/act) Aerosol Inhalation b.i.d., Gabapentin 1 Capsule (of 300 mg) Oral t.i.d., Marinol 1 Capsule (of 5 mg) Oral b.i.d., Morphine Sulfate 1 - 2 Tablet (of 30 mg) Oral q 4 hours PRN, Multivitamin Adult 1 Tablet Oral daily, Nitroglycerin 1 (0.4 mg) Tablet, sublingual Sublingual PRN, Ondansetron HCl 1 Tablet (of 4 mg) Oral four times a day PRN, Pantoprazole Sodium 1 Tablet (of 40 mg) Tablet, enteric coated Oral daily PRN, predniSONE Tablet Oral, Prochlorperazine Maleate 1 Tablet (of 10 mg) Oral b.i.d., Vitamin D3 1 Tablet (of 1000 Units) Oral daily Allergies: No Known Allergies. Review of Systems: Constitutional - His energy comes and goes, but overall he has limited activity. He has no desire to eat. He continues to lose weight. He is now down another 7 pounds. He has not had fever. He does have some sweating at night. ECOG score is 2, ENMT - He has sinus congestion/drainage. He has some soreness in his mouth. No sore throat or difficulty swallowing, Hematologic/Lymphatic - No abnormal bruising or bleeding, Respiratory - He feels shortness of breath, but his 02 sat is good. No cough. No pleuritic pain or hemoptysis, Cardiovascular - He has occasional rib pain and he occasionally has feeling of a tight band across his chest . No palpitations, Gastrointestinal - He has nausea. This is relieved with Zofran ODT and lorazepam. No vomiting. He is taking pantoprazole for heartburn, and he occasional has to take Tums along with it. No diarrhea. He continues to have some difficulty with constipation, but Relistor has been effective for him. No blood in the stool or black stools, Genitourinary (M) - No dysuria or hematuria. No urinary frequency. No urgency or incontinence, Musculoskeletal - He continues to have pain but it is manageable with a combination of immediate release morphine and oxycodone, Integumentary - No skin complications, Neurologic - He has occasional headaches and he occasionally has dizziness. He has numbness and tingling in his left arm/hand. No other focal neurologic symptoms, Psychiatric - No anxiety. His depression is improved. He is sleeping OK most of the time. Vital Signs: Performed on Dec 13, 2019 09:21 Height - 69.00 in Weight - 116.0 lbs (LOW) BSA - 1.64 sq.m BMI - 17.13 (LOW) Temperature - 97.4 F (LOW) Pulse - 107 /min (HIGH) Respiration - 16 /min BP - 117/65 mm(hg) O2 Sat - 99 % Pain - 6 Physical Examination: Constitutional - He appears generally weak and frail. He has noticeable weight loss, Eyes - Sclerae nonicteric. Conjunctivae clear, ENMT - No lesions noted in the oral cavity, Hematologic/Lymphatic - No cervical, clavicular, or axillary adenopathy, Respiratory - Lungs sound clear with some decrease in air movement bilaterally, Cardiovascular - Heart rhythm is regular. There is no murmur, gallop, or rub noted, Abdomen - Thin but soft. Liver does appear enlarged now. Spleen is not palpable. There is no abdominal mass or ascites noted and there is no inguinal adenopathy, Extremities - No edema. There are a few scattered purpuric lesions, Neurologic - There is weakness in the left arm and hand. There are no other focal neurologic deficits noted. Impression: 1. Patient with hepatocellular carcinoma. By clinical evaluation his disease is stage IVB (T1, NX, M1) with biopsy proven metastatic involvement in the right shoulder. 2. There is also a possible metastatic lesion in the spleen by CT scan. His other medical illnesses include: 3. Hypertension. 4. Hyperlipidemia. 5. Type II diabetes with peripheral neuropathy. 6. Coronary artery disease with history of non-ST elevation myocardial infarction in August 2017. 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 7. GERD/peptic ulcer disease. 8. Obstructive sleep apnea. 9. Degenerative arthritis/degenerative disease of the spine. 10. Gout. 11. Nephrolithiasis. 12. Vitamin D deficiency. 13. Posttraumatic stress disorder. Due to symptomatic involvement in the right shoulder, he initially was treated with palliative radiation to that area. He completed treatment on 06/29/2018, total dose 4000 cGy. He had a very good clinical response. He then began systemic therapy with sorafenib 400 mg twice a day on 07/14/2018. He has now completed additional palliative radiation to the left scapula and to the pelvis, both sites to 2400 cGy. Initially he appeared to be tolerating the sorafenib with acceptable toxicity. However, as of his follow-up visit on 09/01/2018 he had developed headache on the right side. This continued to worsen, and the sorafenib was then stopped as of 09/12/2018. MRA of the head on 09/15/2018 showed evidence of a subacute right subdural hematoma. He was taken off Plavix. It was otherwise been managed conservatively, and it subsequently improved. During follow-up he did show some decline in performance status. His repeat CT scans on 09/27/2018 showed variable appearance to the liver, but there likely was some disease progression in both the liver and bone. On 10/12/2018 he began second line therapy with nivolumab 240 mg by IV infusion every 2 weeks. As of 01/11/2019 he had completed 6 cycles of treatment. His restaging CT and subsequent PET/CT appeared to show evidence of progression of the bony metastatic disease, with the most significant site being in the anterior right second rib. He had initially continued his immunotherapy, but he then had worsening back pain and development of neurologic symptoms in the left arm, and he was confirmed by MRI to have further disease progression in the thoracic spine. The immunotherapy was again put on hold, and he has had underwent palliative radiation to the thoracic spine. He completed treatment on 04/04/2019, total dose 3250 cGy. During that time he required hospital admission for severe dysphasia, but that was determined to be due to a benign esophageal stricture, and his symptoms are improved following an esophageal dilatation procedure. I had seen him for a follow-up visit on 04/15/2019. At that point his pain was being managed adequately with immediate release oxycodone. He had persistent neurologic symptoms in the left arm, and he still had some difficulty swallowing. Given the low likelihood of benefit with further systemic therapy, he opted to just continue with symptomatic/supportive care measures. He declined hospice. In June he completed a course of treatment with Valtrex for herpes zoster. At that time he also required an increase in the dosage of his extended release morphine and I also added olanzapine for his nausea. During subsequent followup there was further decline in his general condition along with further progression of the neurologic deficit in the left arm. He has continued to have both bone and nerve pain, and he has had ongoing problems with nausea/anorexia and constipation. As of his follow-up visit in September 2019 he was still having bone pain and neuropathic pain, and he had ongoing problems with nausea and constipation. During followup he had been doing somewhat better with the nausea, but he continued to have constipation, significant enough that he had been reluctant to take his pain medication. He then obviously had uncontrolled pain and worsening depression. He has since then been able to manage the nausea, and he is getting adequate bowel function with Relistor. He feels that he is getting adequate pain management using a combination of immediate release morphine and oxycodone. Though his symptomatic management has definitely improved, his overall condition has continued to decline. Plan: He continues symptomatic/supportive care measures. He is going to continue on the ODT ondansetron and the lorazepam for nausea and he will continue the immediate release morphine and oxycodone for pain management. He will take a Relistor injection if his bowels have not moved by the third day, and he will take additional Tums to try and manage the acid reflux. He will be scheduled for a follow-up visit in 1 month. Signed By: Tyler Shea M.D. <<Signature on File>>
== END 2019-12-13 07:46 | disposition home or self-care (01) ==
LOC: ONCMED 07:48
PROVIDERS: PCP Family Medicine; Visit Provider Internal Medicine Medical Oncology
DX: C22.0 Liver cell carcinoma (principal); C79.89 Secondary malignant neoplasm of other specified sites; K59.00 Constipation, unspecified; R11.0 Nausea; F32.9 Major depressive disorder, single episode, unspecified; I10 Essential (primary) hypertension; E11.42 Type 2 diabetes mellitus with diabetic polyneuropathy; I25.10 Atherosclerotic heart disease of native coronary artery without angina pectoris; K21.9 Gastro-esophageal reflux disease without esophagitis; K27.9 Peptic ulcer, site unspecified, unspecified as acute or chronic, without hemorrhage or perforation; G47.33 Obstructive sleep apnea (adult) (pediatric); M47.9 Spondylosis, unspecified; N20.0 Calculus of kidney; E55.9 Vitamin D deficiency, unspecified; F43.10 Post-traumatic stress disorder, unspecified; Z92.3 Personal history of irradiation; Z79.899 Other long term (current) drug therapy
CPT/HCPCS: 99214

== ENCOUNTER 2020-01-16 12:34 | Outpatient (CLI) | payer OTHER, MEDICARE, SELFPAY ==
--- NOTE | 2020-01-17 12:06 | ONC FU_ITS ---
Dr. Shea Patient Follow-Up Note Patient: Victoriano Resendiz Unit #: [id number]: 1950 Dicatated By: Tyler Shea M.D.Date of Visit:Jan 16, 2020 Onc Med Follow-up/Prog Note Chief Complaint: Hepatocellular carcinoma. History of Present Illness: This is a 69 year-old man with metastatic hepatocellular carcinoma. He has multiple medical illnesses including hypertension, hyperlipidemia, type II diabetes with peripheral neuropathy, coronary artery disease, obstructive sleep apnea, GERD/peptic ulcer disease, degenerative arthritis/degenerative disease of the spine, nephrolithiasis, gout, vitamin D deficiency, and posttraumatic stress disorder. In August 2017 he was admitted to the hospital with non-ST elevation myocardial infarction. At the time he underwent emergent coronary angioplasty for obstructive disease in the mid LAD and first diagonal branch, both of which were noted to contain thrombus. He did not require stent placement. 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 His CT angiogram at that time showed a moderate-sized pericardial effusion, but with no evidence for aortic aneurysm or dissection. Also noted on that study was fatty infiltration of the liver and a 3.2 cm mass in the right lobe of the liver, felt to be indeterminate. Further evaluation with CT abdomen/pelvis on 10/12/2017 showed a 3.7 x 3.8 cm mass involving the right lobe of the liver. It was felt to appear more consistent with a hemangioma then other etiologies. A 3 month interval follow-up was recommended. He had then presented in the fall with left arm pain. It improved with physical therapy. He had then developed worsening pain in his right shoulder and arm. X-rays of the right shoulder showed moderate degenerative changes. MRI showed a mass lesion at the distal aspect of the coracoid process with bony destruction and a soft tissue component which was noted to protrude anteriorly. The appearance was suspicious for malignancy. He had orthopedic surgery consultation with Dr. Hemanth Santos on 04/21/2018. Subsequent needle biopsy of the right shoulder soft tissue mass on 05/12/2018 showed metastatic carcinoma consistent with an hepatocellular primary. The tumor cells were noted to be strongly reactive for a HEP-PAR-1 and negative for CK7, CK20, PAX8, RCC, and thyroglobulin. His further staging with CT scans of the abdomen/pelvis on 05/12/2018 showed a large ill defined arterially enhancing mass within the right hepatic lobe measuring up to 8 cm. The primary diagnostic consideration was hepatocellular carcinoma. A solitary metastatic lesion was felt to be less likely. A 1.5 cm enhancing lesion within the inferior aspect of the spleen was felt to possibly represent splenic hematoma or hemangioma, but with metastatic lesion not excluded. The prostate was noted to be heterogeneously enlarged. CT of the chest on 05/13/2018 showed borderline enlarged right paratracheal, left paratracheal, and subcarinal lymph nodes, the largest in the subcarinal region measuring 15 mm. There were no suspicious pulmonary nodules and there was no pleural or pericardial effusion noted. A destructive expansile lytic lesion was noted to involve the right coracoid process with associated soft tissue mass. There were degenerative changes of the lower cervical spine. I had seen him initially on 06/15/2018. Given the extent of involvement in the right shoulder area, I did have him see Dr. Rapp for palliative radiation. I also reviewed options for systemic therapy, and per NCCN guidelines I had recommended an initial course of therapy with sorafenib. He began radiation to the right shoulder on 06/23/2018. He completed his course of treatment on 06/29/2018, total dose 4000 cGy. He had a very good clinical response. He began treatment with sorafenib 400 mg twice a day on 07/14/2018. He was then given additional radiation to the left scapula and to the pelvis. Treatment was completed to the left scapula on 08/18/2018 and to the pelvis on 09/01/2018, both sites to 2400 cGy. I had seen him for a followup visit on 09/01/2018. At that time he had developed headache on the right side. Initially he continued the sorafenib, but it was stopped as of 09/12/2018. An MRI of the head on 09/15/2018 showed a thin right parietal subacute subdural hematoma overlying the right parietal convexity. It extended over the right occipital and temporal lobes. It measured 5 mm in maximum dimension. There was minimal mass effect on the underlying brain parenchyma. There was no evidence of metastatic disease. During his further follow-up, he continued conservative management for the subdural hematoma, and his symptoms gradually improved. Repeat CT abdomen/pelvis on 09/27/2018 showed increased size variable decreased enhancement/attenuation of the right hepatic lobe mass. There was evidence of progressive lytic metastatic disease involving the sacrum. He was then approved for second line systemic therapy with nivolumab. He began cycle 1 on 10/12/2018. He was able to tolerate the nivolumab without any significant toxicity. He then continued treatment at 2-week intervals. As of 01/11/2019 he received his 6th cycle. His restaging CT scans on 01/14/2019 showed development of an expansile lesion of the right second rib felt to probably represent a metastatic lesion. There was no change in the treated lesion in the right lobe of the liver. There was also no change in the size of the probable right sacral metastasis. Further evaluation with PET/CT on 01/22/2018 showed a region of probable necrosis in the posterior right hepatic lobe, but with no evidence for active hepatic malignancy. There was evidence for multifocal osseous metastatic disease, including a right second rib lesion measuring 3.9 x 3.4 cm with SUV 4.0. There were additional FDG positive bone lesions in the right scapula, T3 vertebral body, left transverse process of T6, sacrum, proximal right femur, right 10th rib, and left scapula. With those findings, he was referred to Dr. Rapp, and he has been undergoing additional phase of radiation to the thoracic spine. On 03/26/2019 he was admitted to the hospital with complaints of severe pain in the throat/chest and difficulty swallowing. The symptoms were severe enough that he was having vomiting/regurgitation. Radiation esophagitis was suspected, but his Gastrografin upper GI study showed evidence of esophageal stenosis. He then had ENT consultation and he was confirmed on subsequent esophagoscopy to have a benign-appearing stricture, which was able to be dilated. There was no evidence of radiation or Kimberly esophagitis. His symptoms improved, and he was then able to continue radiation. He completed treatment to the thoracic spine on 04/04/2019, total dose 3250 cGy. I had seen him for a follow-up visit on 04/15/2019. Given a low likelihood of benefit with any further systemic therapy, he opted to just continue on symptomatic/supportive care. He declined hospice. On 05/15/2019 he was readmitted to the hospital with continued difficulty swallowing. His repeat EGD showed a small stricture in the post cricoid area. The remainder of the esophagus was unremarkable. The area of stricture was dilated with subsequent improvement in his symptoms. He was discharged home on 05/21/2019 to continue symptomatic/supportive care. He had subsequently reported a new skin rash. He was seen the following day, on 06/16/2019, and he had an obvious herpes zoster eruption on the left side. He completed a course of treatment with Valtrex. At his follow-up visit on 06/20/2019 he required an increase in the dosage of his extended release morphine, and at that time I also had him start olanzapine for persistent nausea. He continued to decline hospice. During subsequent follow-up he continued to have significant issues with nausea and constipation. The constipation was severe enough that he did not want to take pain medication, which then made his pain and his depression a lot worse. Following his last visit, I finally did convince him to start using Relistor, which was effective for relieving his constipation, though he had complained that it causes him to have acid reflux and that it tore up his stomach. He is seen for a follow-up visit. His main complaint relates to his constipation. He does get benefit with Relistor injections, but the injections continue to tear up his stomach and he would like to get on a different treatment for it. He has been limiting his pain medication to just the immediate release oxycodone. He continues to have significant pain from his tailbone to his neck. The most severe pain is in his sacrum/tailbone area. He also has a spot that hurts in his right lateral chest wall, and he has a pain from his right hip area down to his right knee which is positional. He has very limited activity. His ECOG score is 2. Appetite is not good. He has not had fever. He sometimes has sweating at night. He has shortness of breath with exertion. He does not complain of cough. He does report having a bandlike pain on both sides of the chest. His nausea is controlled much better with his current medication, though he still occasionally has vomiting in the mornings. Bladder function remains adequate, though he sometimes has to force it. He does not complain of headache. He does have dizziness at times. He has numbness in his left arm and hand and he is now getting more numbness in his right arm. Medications: Ativan 1 Tablet (of 1 mg) Oral q 4 hours PRN, Cyclobenzaprine HCl 1 Tablet (of 10 mg) Oral t.i.d. PRN, Docusate Sodium Tablet Oral PRN, Flovent HFA 1 Puff(s) (of 220 mcg/act) Aerosol Inhalation b.i.d., Fluticasone Propionate HFA 1 (220 mcg/act) Aerosol Inhalation b.i.d., Gabapentin 1 Capsule (of 300 mg) Oral t.i.d., Marinol 1 Capsule (of 5 mg) Oral b.i.d., Morphine Sulfate 1 - 2 Tablet (of 30 mg) Oral q 4 hours PRN, Multivitamin Adult 1 Tablet Oral daily, Nitroglycerin 1 (0.4 mg) Tablet, sublingual Sublingual PRN, Ondansetron HCl 1 Tablet (of 4 mg) Oral four times a day PRN, Pantoprazole Sodium 1 Tablet (of 40 mg) Tablet, enteric coated Oral daily PRN, predniSONE Tablet Oral, Prochlorperazine Maleate 1 Tablet (of 10 mg) Oral b.i.d., Vitamin D3 1 Tablet (of 1000 Units) Oral daily Allergies: No Known Allergies. Review of Systems: Constitutional - Energy is about the same. His activity is vey limited. Appetite is just fair. He is losing weight. No fever. He sometimes has night sweating. ECOG score is 2, ENMT - He has some sinus congestion/drainage. No mouth sores. No sore throat or difficulty swallowing, Hematologic/Lymphatic - He has some bruising, Respiratory - He has shortness of breath with exertion. No cough. No pleuritic pain or hemoptysis, Cardiovascular - He has bandlike pain on both sides of the chest. No palpitations, Gastrointestinal - He has nausea. He still has occasional vomiting. No heartburn or acid reflux. He has constipation. No blood in the stool or black stools, Genitourinary (M) - He sometimes has to force urination, Musculoskeletal - He has pain from his tailbone to his neck. The worst pain is in the tailbone/sacrum area. He has pain in the chestwall on both sides and he has positional pain that goes from her right hip to her right knee, Neurologic - No headache. He sometimes has dizziness. He has numbness/tingling in his left arm and hand and also now in the right arm, Psychiatric - His anxiety/depression is adequately managed. No insomnia. Vital Signs: Performed on Jan 16, 2020 12:50 Height - 69.00 in Weight - 113.2 lbs (LOW) BSA - 1.62 sq.m BMI - 16.72 (LOW) Temperature - 97.6 F (LOW) Pulse - 91 /min Respiration - 16 /min BP - 95/54 mm(hg) O2 Sat - 99 % Pain - 7 Physical Examination: Constitutional - He appears generally weak and frail, Eyes - Sclerae nonicteric. Conjunctivae clear, ENMT - No lesions noted in the oral cavity, Hematologic/Lymphatic - No cervical, clavicular, or axillary adenopathy, Respiratory - Lungs sound clear with some decrease in air movement bilaterally, Cardiovascular - Heart rhythm is regular. There is no murmur, gallop, or rub noted, Abdomen - Thin but soft. Liver appears enlarged. Spleen is not palpable. There is no abdominal mass or ascites noted and there is no inguinal adenopathy, Extremities - No edema, Neurologic - There is weakness and atrophy in the left arm and hand. Impression: 1. Patient with hepatocellular carcinoma. By clinical evaluation his disease is stage IVB (T1, NX, M1) with biopsy proven metastatic involvement in the right shoulder. 2. There is also a possible metastatic lesion in the spleen by CT scan. His other medical illnesses include: 3. Hypertension. 4. Hyperlipidemia. 5. Type II diabetes with peripheral neuropathy. 6. Coronary artery disease with history of non-ST elevation myocardial infarction in August 2017. It was complicated by post [place] Monica's syndrome. 7. GERD/peptic ulcer disease. 8. Obstructive sleep apnea. 9. Degenerative arthritis/degenerative disease of the spine. 10. Gout. 11. Nephrolithiasis. 12. Vitamin D deficiency. 13. Posttraumatic stress disorder. Due to symptomatic involvement in the right shoulder, he initially was treated with palliative radiation to that area. He completed treatment on 06/29/2018, total dose 4000 cGy. He had a very good clinical response. He then began systemic therapy with sorafenib 400 mg twice a day on 07/14/2018. He has now completed additional palliative radiation to the left scapula and to the pelvis, both sites to 2400 cGy. Initially he appeared to be tolerating the sorafenib with acceptable toxicity. However, as of his follow-up visit on 09/01/2018 he had developed headache on the right side. This continued to worsen, and the sorafenib was then stopped as of 09/12/2018. MRA of the head on 09/15/2018 showed evidence of a subacute right subdural hematoma. He was taken off Plavix. It was otherwise been managed conservatively, and it subsequently improved. During follow-up he did show some decline in performance status. His repeat CT scans on 09/27/2018 showed variable appearance to the liver, but there likely was some disease progression in both the liver and bone. On 10/12/2018 he began second line therapy with nivolumab 240 mg by IV infusion every 2 weeks. As of 01/11/2019 he had completed 6 cycles of treatment. His restaging CT and subsequent PET/CT appeared to show evidence of progression of the bony metastatic disease, with the most significant site being in the anterior right second rib. He had initially continued his immunotherapy, but he then had worsening back pain and development of neurologic symptoms in the left arm, and he was confirmed by MRI to have further disease progression in the thoracic spine. The immunotherapy was again put on hold, and he has had underwent palliative radiation to the thoracic spine. He completed treatment on 04/04/2019, total dose 3250 cGy. During that time he required hospital admission for severe dysphasia, but that was determined to be due to a benign esophageal stricture, and his symptoms are improved following an esophageal dilatation procedure. I had seen him for a follow-up visit on 04/15/2019. At that point his pain was being managed adequately with immediate release oxycodone. He had persistent neurologic symptoms in the left arm, and he still had some difficulty swallowing. Given the low likelihood of benefit with further systemic therapy, he opted to just continue with symptomatic/supportive care measures. He declined hospice. In June he completed a course of treatment with Valtrex for herpes zoster. At that time he also required an increase in the dosage of his extended release morphine and I also added olanzapine for his nausea. During subsequent followup there was further decline in his general condition along with further progression of the neurologic deficit in the left arm. He has continued to have both bone and nerve pain, and he has had ongoing problems with nausea/anorexia and constipation. As of his follow-up visit in September 2019 he was still having bone pain and neuropathic pain, and he had ongoing problems with nausea and constipation. \ During followup he had been doing somewhat better with the nausea, but he continued to have constipation, significant enough that he had been reluctant to take his pain medication. He then obviously had uncontrolled pain and worsening depression. He was then able to get his nausea managed adequately with medication, and his constipation did respond t treatment with Relistor. He was getting adequate pain management using a combination of immediate release morphine and oxycodone. Unfortunately, during further follow-up he had complained of side effects with the Relistor, namely that it had a tendency to tear up his stomach. As such, he has continued to have issues managing constipation and his pain management has been problematic, as he also has wanted to limit his opiate medication use. During this time, there is been continued gradual decline in his general condition and performance status. Plan: He continues symptomatic/supportive care measures. For now he wants to continue with the same pain medication. I will look for different options for managing his constipation, most likely with a laxative regimen in combination with the Amitiza. I will tentatively plan a follow-up visit in 1 month. Signed By: Tyler Shea M.D. <<Signature on File>>
== END 2020-01-16 12:35 | disposition home or self-care (01) ==
LOC: ONCMED 12:38
PROVIDERS: PCP Family Medicine; Visit Provider Internal Medicine Medical Oncology
DX: C22.0 Liver cell carcinoma (principal); C79.51 Secondary malignant neoplasm of bone; I10 Essential (primary) hypertension; E78.5 Hyperlipidemia, unspecified; E11.42 Type 2 diabetes mellitus with diabetic polyneuropathy; I25.10 Atherosclerotic heart disease of native coronary artery without angina pectoris; I25.2 Old myocardial infarction; I24.1 Dressler's syndrome; K21.9 Gastro-esophageal reflux disease without esophagitis; K25.9 Gastric ulcer, unspecified as acute or chronic, without hemorrhage or perforation; G47.33 Obstructive sleep apnea (adult) (pediatric); M47.9 Spondylosis, unspecified; M10.9 Gout, unspecified; N20.0 Calculus of kidney; E55.9 Vitamin D deficiency, unspecified; F43.10 Post-traumatic stress disorder, unspecified; Z79.899 Other long term (current) drug therapy
CPT/HCPCS: 99214

== ENCOUNTER 2020-01-18 08:07 | Outpatient (CLI) | payer OTHER, SELFPAY ==
--- NOTE | 2020-01-18 08:34 | FL_ITS ---
WS: [id number] UPPER GI EXAMINATION HISTORY: R13.10 Dysphagia, unspecified COMPARISON: None available. FLUOROSCOPY TIME: 1.9 minutes. Normal bowel gas pattern. 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 Patient drank the barium mixture without difficulty. No high-grade strictures or mucosal lesions are identified within the esophagus. Poor emptying of the esophagus with mild dysmotility. A few episodes of gastroesophageal reflux to the level of the chang. Barium tablet was swallowed without difficult y. No hiatal hernia was demonstrated on this exam. Visualized stomach and duodenal bulb are normal. FL/FL upper GI w air* [id number] IMPRESSION: 1. No significant esophageal strictures are identified. 2. Mild esophageal dysmotility. 3. Moderate gastroesophageal reflux.
== END 2020-01-18 08:08 | disposition home or self-care (01) ==
PROVIDERS: PCP Family Medicine; Visit Provider Surgery
DX: R13.10 Dysphagia, unspecified (principal); K21.9 Gastro-esophageal reflux disease without esophagitis
CPT/HCPCS: 74246

== ENCOUNTER 2020-02-15 06:13 | Outpatient (CLI) | payer OTHER, SELFPAY ==
--- NOTE | 2020-02-15 15:25 | ONC FU_ITS ---
Dr. Shea Patient Follow-Up Note Patient: Victoriano Resendiz Unit #: [id number]: 1950 Dicatated By: Tyler Shea M.D.Date of Visit:Feb 15, 2020 Onc Med Follow-up/Prog Note Chief Complaint: Hepatocellular carcinoma. History of Present Illness: This is a 69 year-old man with metastatic hepatocellular carcinoma. He has multiple medical illnesses including hypertension, hyperlipidemia, type II diabetes with peripheral neuropathy, coronary artery disease, obstructive sleep apnea, GERD/peptic ulcer disease, degenerative arthritis/degenerative disease of the spine, nephrolithiasis, gout, vitamin D deficiency, and posttraumatic stress disorder. In August 2017 he was admitted to the hospital with non-ST elevation myocardial infarction. At the time he underwent emergent coronary angioplasty for obstructive disease in the mid LAD and first diagonal branch, both of which were noted to contain thrombus. He did not require stent placement. 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 His CT angiogram at that time showed a moderate-sized pericardial effusion, but with no evidence for aortic aneurysm or dissection. Also noted on that study was fatty infiltration of the liver and a 3.2 cm mass in the right lobe of the liver, felt to be indeterminate. Further evaluation with CT abdomen/pelvis on 10/12/2017 showed a 3.7 x 3.8 cm mass involving the right lobe of the liver. It was felt to appear more consistent with a hemangioma then other etiologies. A 3 month interval follow-up was recommended. He had then presented in the fall with left arm pain. It improved with physical therapy. He had then developed worsening pain in his right shoulder and arm. X-rays of the right shoulder showed moderate degenerative changes. MRI showed a mass lesion at the distal aspect of the coracoid process with bony destruction and a soft tissue component which was noted to protrude anteriorly. The appearance was suspicious for malignancy. He had orthopedic surgery consultation with Dr. Hemanth Santos on 04/21/2018. Subsequent needle biopsy of the right shoulder soft tissue mass on 05/12/2018 showed metastatic carcinoma consistent with an hepatocellular primary. The tumor cells were noted to be strongly reactive for a HEP-PAR-1 and negative for CK7, CK20, PAX8, RCC, and thyroglobulin. His further staging with CT scans of the abdomen/pelvis on 05/12/2018 showed a large ill defined arterially enhancing mass within the right hepatic lobe measuring up to 8 cm. The primary diagnostic consideration was hepatocellular carcinoma. A solitary metastatic lesion was felt to be less likely. A 1.5 cm enhancing lesion within the inferior aspect of the spleen was felt to possibly represent splenic hematoma or hemangioma, but with metastatic lesion not excluded. The prostate was noted to be heterogeneously enlarged. CT of the chest on 05/13/2018 showed borderline enlarged right paratracheal, left paratracheal, and subcarinal lymph nodes, the largest in the subcarinal region measuring 15 mm. There were no suspicious pulmonary nodules and there was no pleural or pericardial effusion noted. A destructive expansile lytic lesion was noted to involve the right coracoid process with associated soft tissue mass. There were degenerative changes of the lower cervical spine. I had seen him initially on 06/15/2018. Given the extent of involvement in the right shoulder area, I did have him see Dr. Rapp for palliative radiation. I also reviewed options for systemic therapy, and per NCCN guidelines I had recommended an initial course of therapy with sorafenib. He began radiation to the right shoulder on 06/23/2018. He completed his course of treatment on 06/29/2018, total dose 4000 cGy. He had a very good clinical response. He began treatment with sorafenib 400 mg twice a day on 07/14/2018. He was then given additional radiation to the left scapula and to the pelvis. Treatment was completed to the left scapula on 08/18/2018 and to the pelvis on 09/01/2018, both sites to 2400 cGy. I had seen him for a followup visit on 09/01/2018. At that time he had developed headache on the right side. Initially he continued the sorafenib, but it was stopped as of 09/12/2018. An MRI of the head on 09/15/2018 showed a thin right parietal subacute subdural hematoma overlying the right parietal convexity. It extended over the right occipital and temporal lobes. It measured 5 mm in maximum dimension. There was minimal mass effect on the underlying brain parenchyma. There was no evidence of metastatic disease. During his further follow-up, he continued conservative management for the subdural hematoma, and his symptoms gradually improved. Repeat CT abdomen/pelvis on 09/27/2018 showed increased size variable decreased enhancement/attenuation of the right hepatic lobe mass. There was evidence of progressive lytic metastatic disease involving the sacrum. He was then approved for second line systemic therapy with nivolumab. He began cycle 1 on 10/12/2018. He was able to tolerate the nivolumab without any significant toxicity. He then continued treatment at 2-week intervals. As of 01/11/2019 he received his 6th cycle. His restaging CT scans on 01/14/2019 showed development of an expansile lesion of the right second rib felt to probably represent a metastatic lesion. There was no change in the treated lesion in the right lobe of the liver. There was also no change in the size of the probable right sacral metastasis. Further evaluation with PET/CT on 01/22/2018 showed a region of probable necrosis in the posterior right hepatic lobe, but with no evidence for active hepatic malignancy. There was evidence for multifocal osseous metastatic disease, including a right second rib lesion measuring 3.9 x 3.4 cm with SUV 4.0. There were additional FDG positive bone lesions in the right scapula, T3 vertebral body, left transverse process of T6, sacrum, proximal right femur, right 10th rib, and left scapula. With those findings, he was referred to Dr. Rapp, and he has been undergoing additional phase of radiation to the thoracic spine. On 03/26/2019 he was admitted to the hospital with complaints of severe pain in the throat/chest and difficulty swallowing. The symptoms were severe enough that he was having vomiting/regurgitation. Radiation esophagitis was suspected, but his Gastrografin upper GI study showed evidence of esophageal stenosis. He then had ENT consultation and he was confirmed on subsequent esophagoscopy to have a benign-appearing stricture, which was able to be dilated. There was no evidence of radiation or Kimberly esophagitis. His symptoms improved, and he was then able to continue radiation. He completed treatment to the thoracic spine on 04/04/2019, total dose 3250 cGy. I had seen him for a follow-up visit on 04/15/2019. Given a low likelihood of benefit with any further systemic therapy, he opted to just continue on symptomatic/supportive care. He declined hospice. On 05/15/2019 he was readmitted to the hospital with continued difficulty swallowing. His repeat EGD showed a small stricture in the post cricoid area. The remainder of the esophagus was unremarkable. The area of stricture was dilated with subsequent improvement in his symptoms. He was discharged home on 05/21/2019 to continue symptomatic/supportive care. He had subsequently reported a new skin rash. He was seen the following day, on 06/16/2019, and he had an obvious herpes zoster eruption on the left side. He completed a course of treatment with Valtrex. At his follow-up visit on 06/20/2019 he required an increase in the dosage of his extended release morphine, and at that time I also had him start olanzapine for persistent nausea. He continued to decline hospice. During subsequent follow-up he continued to have significant issues with nausea and constipation. The constipation was severe enough that he did not want to take pain medication, which then made his pain and his depression a lot worse. I was finally able to convince him to start using Relistor, which was effective for relieving his constipation. However, he then complained that it caused him to have acid reflux and that it tore up his stomach, and he eventually stopped it. His nausea was reasonably well controlled with medication and he was able to manage his pain adequately. He continued to show gradual decline in performance status. He is seen for a follow-up visit. He says he has not been feeling good generally, and today he feels absolutely terrible. He has been very weak and has very limited activity. ECOG score is 3. He is getting some Ensure down, but he is otherwise not eating. He does not have fever or night sweats. He says it is getting harder to breathe. He continues to have pain across his chest and in the middle of his back. He also has pain on the left side of his back and to a lesser extent on the right side. He complains of having a band around his lower chest and back. He says his breathing is getting harder. He still has some nausea, but it is managed pretty well. He also still has constipation, with his bowels are better. He has some burning with urination. He sometimes has headache. He also complains of dizziness/lightheadedness. He has numbness in both arms and hands and in his thorax. He has developed a skin ulceration in the sacral area. Medications: Ativan 1 Tablet (of 1 mg) Oral q 4 hours PRN, Cyclobenzaprine HCl 1 Tablet (of 10 mg) Oral t.i.d. PRN, Docusate Sodium Tablet Oral PRN, Flovent HFA 1 Puff(s) (of 220 mcg/act) Aerosol Inhalation b.i.d., Fluticasone Propionate HFA 1 (220 mcg/act) Aerosol Inhalation b.i.d., Gabapentin 1 Capsule (of 300 mg) Oral t.i.d., Marinol 1 Capsule (of 5 mg) Oral b.i.d., Morphine Sulfate 1 - 2 Tablet (of 30 mg) Oral q 4 hours PRN, Multivitamin Adult 1 Tablet Oral daily, Nitroglycerin 1 (0.4 mg) Tablet, sublingual Sublingual PRN, Ondansetron HCl 1 Tablet (of 4 mg) Oral four times a day PRN, oxyCODONE HCl 1 - 2 Tablet (of 30 mg) Oral four times a day PRN, Pantoprazole Sodium 1 Tablet (of 40 mg) Tablet, enteric coated Oral daily PRN, Prochlorperazine Maleate 1 Tablet (of 10 mg) Oral b.i.d., Vitamin D3 1 Tablet (of 1000 Units) Oral daily Allergies: No Known Allergies. Review of Systems: Constitutional - He has not felt good generally, and today he feels terrible. He has very limited activity. Appetite is poor. He is getting some Ensure but is otherwise not eating. He has continued to lose weight. He has not had fever or night sweats. ECOG score is 3, ENMT - He has sinus drainage and he complains that his mouth is sore. No sore throat or difficulty swallowing, Hematologic/Lymphatic - No abnormal bruising or bleeding, Respiratory - His breathing is getting harder. No cough. No pleuritic pain or hemoptysis, Cardiovascular - No angina pain. No palpitations, Gastrointestinal - He has nausea, though it is pretty well managed with medication. He has occasional acid reflux. He has constipation, but his bowels lately have been better. No blood in the stool or black stools, Genitourinary (M) - He sometimes has burning with urination. No hematuria. No urinary frequency. No urgency or incontinence, Musculoskeletal - He has pain across his chest. He has pain on the left side of his back and to a lesser extent on the right side of his back. He also has a band that goes around his lower chest and back. He also has pain in the sacral area, Integumentary - He has a decubitus sore in the sacral area, Neurologic - He sometimes has headache. He has dizziness. He has numbness and both arms and hands and in his thorax, Psychiatric - He is struggling with depression. He has been sleeping okay. Vital Signs: Performed on Feb 15, 2020 12:40 Height - 69.00 in Weight - 106.4 lbs (LOW) BSA - 1.58 sq.m BMI - 15.71 (LOW) Temperature - 99.0 F (HIGH) Pulse - 85 /min Respiration - 16 /min BP - 107/59 mm(hg) O2 Sat - 98 % Pain - 8 Physical Examination: Constitutional - He appears generally weak and cachectic, Eyes - Sclerae nonicteric. Conjunctivae clear, ENMT - No lesions noted in the oral cavity, Hematologic/Lymphatic - No cervical, clavicular, or axillary adenopathy, Respiratory - Lungs sound clear with some decrease in air movement bilaterally, Cardiovascular - Heart rhythm is regular. There is no murmur, gallop, or rub noted, Abdomen - Thin but soft. Liver is enlarged. Spleen is not palpable. There is no abdominal mass or ascites noted and there is no inguinal adenopathy, Extremities - No edema, Integumentary - There is a sacral decubitus skin ulceration. It is small, but it does appear to be a stage 2 ulceration, Neurologic - He appears generally weak and he has obvious muscle wasting. Impression: 1. Patient with hepatocellular carcinoma. By clinical evaluation his disease is stage IVB (T1, NX, M1) with biopsy proven metastatic involvement in the right shoulder. 2. There is also a possible metastatic lesion in the spleen by CT scan. His other medical illnesses include: 3. Hypertension. 4. Hyperlipidemia. 5. Type II diabetes with peripheral neuropathy. 6. Coronary artery disease with history of non-ST elevation myocardial infarction in August 2017. 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 7. GERD/peptic ulcer disease. 8. Obstructive sleep apnea. 9. Degenerative arthritis/degenerative disease of the spine. 10. Gout. 11. Nephrolithiasis. 12. Vitamin D deficiency. 13. Posttraumatic stress disorder. Due to symptomatic involvement in the right shoulder, he initially was treated with palliative radiation to that area. He completed treatment on 06/29/2018, total dose 4000 cGy. He had a very good clinical response. He then began systemic therapy with sorafenib 400 mg twice a day on 07/14/2018. He has now completed additional palliative radiation to the left scapula and to the pelvis, both sites to 2400 cGy. Initially he appeared to be tolerating the sorafenib with acceptable toxicity. However, as of his follow-up visit on 09/01/2018 he had developed headache on the right side. This continued to worsen, and the sorafenib was then stopped as of 09/12/2018. MRA of the head on 09/15/2018 showed evidence of a subacute right subdural hematoma. He was taken off Plavix. It was otherwise been managed conservatively, and it subsequently improved. During follow-up he did show some decline in performance status. His repeat CT scans on 09/27/2018 showed variable appearance to the liver, but there likely was some disease progression in both the liver and bone. On 10/12/2018 he began second line therapy with nivolumab 240 mg by IV infusion every 2 weeks. As of 01/11/2019 he had completed 6 cycles of treatment. His restaging CT and subsequent PET/CT appeared to show evidence of progression of the bony metastatic disease, with the most significant site being in the anterior right second rib. He had initially continued his immunotherapy, but he then had worsening back pain and development of neurologic symptoms in the left arm, and he was confirmed by MRI to have further disease progression in the thoracic spine. The immunotherapy was again put on hold, and he has had underwent palliative radiation to the thoracic spine. He completed treatment on 04/04/2019, total dose 3250 cGy. During that time he required hospital admission for severe dysphasia, but that was determined to be due to a benign esophageal stricture, and his symptoms are improved following an esophageal dilatation procedure. I had seen him for a follow-up visit on 04/15/2019. At that point his pain was being managed adequately with immediate release oxycodone. He had persistent neurologic symptoms in the left arm, and he still had some difficulty swallowing. Given the low likelihood of benefit with further systemic therapy, he opted to just continue with symptomatic/supportive care measures. He declined hospice. In June he completed a course of treatment with Valtrex for herpes zoster. At that time he also required an increase in the dosage of his extended release morphine and I also added olanzapine for his nausea. During subsequent followup there was further decline in his general condition along with further progression of the neurologic deficit in the left arm. He has continued to have both bone and nerve pain, and he has had ongoing problems with nausea/anorexia and constipation. As of his follow-up visit in September 2019 he was still having bone pain and neuropathic pain, and he had ongoing problems with nausea and constipation. During followup he had been doing somewhat better with the nausea, but he continued to have constipation, significant enough that he had been reluctant to take his pain medication. He then obviously had uncontrolled pain and worsening depression. He was then able to get his nausea managed adequately with medication, and his constipation did respond to treatment with Relistor. He was getting adequate pain management using a combination of immediate release morphine and oxycodone. Unfortunately, he had then complained of side effects with the Relistor, namely that it had a tendency to tear up his stomach. As such, he had continued to have issues managing constipation and his pain management became more problematic, as he also wanted to limit his opiate medication use. He has since then been able to manage the pain and nausea adequately, but there has been continued decline in his general condition. He has very poor oral intake and he has experienced continued weight loss and muscle wasting. He also has now developed a sacral decubitus skin ulceration. Plan: He continues symptomatic/supportive care measures. He will be given IV hydration today, with his medications will remain the same. I will put in a request of the [facility] for home health nurse, as he does need care for his decubitus skin ulceration, and he may need additional IV hydration at home. He has continued to decline hospice. His overall prognosis, though, is extremely poor. Signed By: Tyler Shea M.D. <<Signature on File>>
== END 2020-02-15 06:14 | disposition home or self-care (01) ==
LOC: ONCMED 06:14
PROVIDERS: PCP Family Medicine; Visit Provider Internal Medicine Medical Oncology
DX: C22.0 Liver cell carcinoma (principal); C79.51 Secondary malignant neoplasm of bone; I10 Essential (primary) hypertension; E78.5 Hyperlipidemia, unspecified; E11.42 Type 2 diabetes mellitus with diabetic polyneuropathy; I25.10 Atherosclerotic heart disease of native coronary artery without angina pectoris; I25.2 Old myocardial infarction; K21.9 Gastro-esophageal reflux disease without esophagitis; K25.9 Gastric ulcer, unspecified as acute or chronic, without hemorrhage or perforation; G47.33 Obstructive sleep apnea (adult) (pediatric); M47.9 Spondylosis, unspecified; M10.9 Gout, unspecified; N20.0 Calculus of kidney; E55.9 Vitamin D deficiency, unspecified; F43.10 Post-traumatic stress disorder, unspecified; Z79.899 Other long term (current) drug therapy
CPT/HCPCS: 96360; 99214

== ENCOUNTER 2020-02-20 09:56 | Outpatient (CLI) | payer OTHER, SELFPAY ==
[2020-02-20] MEDS: sodium chloride 0.9% 1,000 ML 999 ML IV (11:45)
[2020-02-20] MEDS: HYDROmorphone 1 mg/mL INJ 1 mL 2 MG IV (12:25)
== END 2020-02-20 09:57 | disposition home or self-care (01) ==
LOC: ONCMED 09:57
PROVIDERS: PCP Family Medicine; Visit Provider Internal Medicine Medical Oncology
DX: C22.0 Liver cell carcinoma (principal); C79.51 Secondary malignant neoplasm of bone
CPT/HCPCS: 96361; 96365; 96375; J1100; J1170; J7030

== ENCOUNTER 2020-02-24 09:01 | Outpatient (CLI) | payer OTHER, SELFPAY ==
[2020-02-24] MEDS: oxyCODONE 5 mg IR Tab/Cap 30 MG PO (09:45)
[2020-02-24] MEDS: LORazepam 0.5 mg Tablet 1 MG PO (09:45)
[2020-02-24] MEDS: sodium chloride 0.9% 1,000 ML 999 ML IV (10:02)
== END 2020-02-24 09:02 | disposition home or self-care (01) ==
LOC: ONCMED 09:02
PROVIDERS: PCP Family Medicine; Visit Provider Internal Medicine Medical Oncology
DX: C22.0 Liver cell carcinoma (principal); C79.51 Secondary malignant neoplasm of bone
CPT/HCPCS: 96361; 96365; J1100; J7030

== ENCOUNTER 2020-02-28 08:37 | Outpatient (CLI) | payer OTHER, SELFPAY ==
[2020-02-28 14:45] VITALS: RESP 18; O2SAT 98
[2020-02-28] MEDS: LORazepam 1 mg Tablet PO (14:45)
[2020-02-28] MEDS: oxyCODONE IR 30 mg Tablet PO (14:45)
[2020-02-28] MEDS: sodium chloride 0.9% 1,000 mL Bolus 999 ML IV (14:45)
== END 2020-02-28 08:38 | disposition home or self-care (01) ==
LOC: ONCMED 08:37
PROVIDERS: PCP Family Medicine; Visit Provider Internal Medicine Medical Oncology
DX: C22.0 Liver cell carcinoma (principal); C79.51 Secondary malignant neoplasm of bone
CPT/HCPCS: 96361; 96365; J1100; J7030

== ENCOUNTER 2020-03-06 13:36 | Outpatient (CLI) | payer OTHER, SELFPAY ==
[2020-03-06] MEDS: sodium chloride 0.9% 1,000 ML 1000 ML IV (14:05)
[2020-03-06] MEDS: HYDROmorphone 1 mg/mL INJ 1 mL 2 MG IVP (14:05)
== END 2020-03-06 13:37 | disposition home or self-care (01) ==
LOC: ONCMED 13:37
PROVIDERS: PCP Family Medicine; Visit Provider Internal Medicine Medical Oncology
DX: C22.0 Liver cell carcinoma (principal); C79.51 Secondary malignant neoplasm of bone
CPT/HCPCS: 96361; 96365; 96375; J1100; J1170; J7030